=== PATIENT | male | born 1935 | race Caucasian/White ===

== ENCOUNTER → 2017-01-30 | Outpatient (CLI) | payer OTHER ==
[~2017-01-30] MED LIST: BROM0.07 OPR; PRED1SUS3 OPR
[2017-01-30 18:49] LABS: BLOOD UREA NITROGEN 24 mg/dl (7-18); BUN/CREATININE RATIO 15.7 (10-20); CALCIUM 8.7 mg/dl (8.5-10.1); CARBON DIOXIDE 29 mmol/L (21-32); CHLORIDE 109 mmol/L (98-107); GLUCOSE 92 mg/dl (70-99); POTASSIUM 4.1 mmol/L (3.5-5.1); SODIUM 142 mmol/L (136-145)
== END | disposition home or self-care (01) ==
LOC: C.LAB1850 16:22
PROVIDERS: ATTEND Family Medicine
DX: L02.529 Furuncle unspecified hand (principal); N18.3 Chronic kidney disease, stage 3 (moderate); E03.9 Hypothyroidism, unspecified

== ENCOUNTER → 2017-02-14 | Outpatient (CLI) | payer OTHER | END | disposition home or self-care (01) | LOC: C.LABSPEC 16:47 | PROVIDERS: ATTEND Nurse Practitioner Family | DX: L98.9 Disorder of the skin and subcutaneous tissue, unspecified (principal) ==

== ENCOUNTER → 2017-12-24 | Outpatient (CLI) | payer OTHER ==
[2017-12-24 12:10] LABS: BASO % 0.5 %; BASO ABS # 0.04 K/uL (0-0.2); EOS % 7.6 %; EOS ABS # 0.61 K/uL (0-0.5); HEMATOCRIT 41.7 % (42-52); HEMOGLOBIN 14.4 g/dL (14.0-18.0); IG# 0.01 K/uL (0.00-0.02); LYMPH % 28.5 %; LYMPH ABS # 2.29 K/uL (1.2-3.4); MEAN CELL VOLUME 92.9 fL (80-100); MEAN CORPUSCULAR HEMOGLOBIN 32.1 pg (25-34); MEAN CORPUSCULAR HGB CONC 34.5 g/dl (32-36); MEAN PLATELET VOLUME 10.7 fL (7.4-10.4); MONO % 9.5 %; MONO ABS # 0.76 K/uL (0.11-0.59); NEUT % 53.8 %; NEUT ABS # 4.33 K/uL (1.4-6.5); PLATELET COUNT 199 K/uL (130-400); RED CELL DISTRIBUTION WIDTH SD 47.8 fL (36.4-46.3); WHITE BLOOD COUNT 8.04 K/uL (4.8-10.8)
[2017-12-24 12:19] LABS: ALBUMIN 3.8 gm/dl (3.4-5.0); ALT/SGPT 35 U/L (12-78); BLOOD UREA NITROGEN 20 mg/dl (7-18); CALCIUM 9.1 mg/dl (8.5-10.1); CARBON DIOXIDE 30 mmol/L (21-32); CREATININE 1.47 mg/dl (0.60-1.40); GLUCOSE 110 mg/dl (70-99); SODIUM 138 mmol/L (136-145)
[2017-12-24 12:30] LABS: ALKALINE PHOSPHATASE 81 U/L (45-117); AST/SGOT 29 U/L (15-37); TOTAL PROTEIN 7.2 gm/dl (6.4-8.2)
== END | disposition home or self-care (01) ==
LOC: C.LAB1850 09:56
PROVIDERS: ATTEND Neuromusculoskeletal Medicine & OMM
DX: R63.4 Abnormal weight loss (principal)

== ENCOUNTER 2024-04-19 14:31 | Inpatient (IN) ==
--- NOTE | 2024-04-19 14:43 | ED Triage Note ---
Date of Service April 19, 2024 Provider in Triage Author: Yemi Jacobs History of Present Illness This patient was briefly evaluated while in triage. An abbreviated physical exam was performed. This patient is a 88-year-old Male who presents to the ED for evaluation of feelings like he was going to pass out. The patient reports that he was driving and felt like he was going to pass out. Patient reports that he got dizzy. The patient denied any chest pain, palpitations or shortness of breath. Symptoms developed twice within the period of 15 minutes. The patient reports his symptoms happened a few days ago as well, and has been intermittent over the last few weeks. Patient reports that it seems to happen when he is trying to stand up. In triage, the patient's lowest heart rate was 43. The patient reports that he is usually in the upper 40s and low 50s normally. The patient was sent here from his PCPs office, and did have an ECG performed today. Physical Exam CONSTITUTIONAL: Healthy and well nourished. Alert and oriented X 3. GCS 15. HEENT: No scleral icterus or conjunctival injection. RESPIRATORY: Clear to auscultation bilaterally with no wheezing, crackles, rhonchi or stridor. CARDIOVASCULAR: Bradycardic but regular rhythm with no murmurs, rubs or gallops. INTEGUMENTARY: No rash or other significant dermatologic conditions noted. HEMATOLOGIC: No ecchymosis or petechiae. PSYCHIATRIC: Positive affect. NEUROLOGIC: No focal neurologic deficits noted. Initial orders for labs and / or imaging were placed and patient was placed in the waiting area until a bed is available. Please see further documentation for the full ED course.
--- NOTE | 2024-04-19 16:07 | CT Scan Report ---
CT OF THE HEAD WITHOUT CONTRAST CLINICAL HISTORY: Near-syncope COMPARISON STUDY: Head CT April 14, 2014. CT DOSE: 625.8 mGy.cm TECHNIQUE: Helical axial images of the head were obtained without IV contrast. Automated exposure con trol was utilized for the study. A dose lowering technique was utilized adhering to the principles o f ALARA. FINDINGS: No acute intracranial hemorrhage, midline shift or mass effect is present. The ventricular system is unremarkable. The basal cisterns are patent. No extra-axial collections are present. There are no findings to suggest acute dural sinus thrombosis or acute territorial infarct. There are no ca lvarial fractures. There is minimal sinus mucosal thickening. IMPRESSION: No acute intracranial findings. ACT 112: Negative or not required by law. Electronically signed by: Jimmy Mcdaniel M.D. 04/19/2024 4:05 PM
--- NOTE | 2024-04-19 16:09 | Emergency Department Note ---
Impression & Plan Symptomatic bradycardia, Vertebral artery stenosis ED Provider Note CHIEF COMPLAINT: Dizziness HISTORY OF PRESENT ILLNESS: This 88-year-old male patient past medical history of hypothyroidism presents emergency department with near syncope x 2 today. Patient states he was in his usual state of health, [place] He began to feel woozy. He likens it to "just before you go to sleep with anesthesia." He states he slowed his vehicle down, but did not pulling unit floorhand. He did not actually lose consciousness. He did have recurrence of the episode about 15 minutes later. Patient states he has been feeling dizzy lately when he bends down low and stands up. He denies any heart palpitations or chest pain during these episodes. He denies any recent febrile illnesses. He admits to a diarrheal illness about 2 weeks ago which has since resolved. Of note, patient states he is asymptomatic at this time. REVIEW OF SYSTEMS: A review of systems was performed with positives and pertinent negatives listed in the history of present illness. 10 systems were reviewed and are otherwise negative. ALLERGIES: see below MEDICATIONS: see below PMH: see below SOCIAL HISTORY: see below DDx: Dehydration, electrolyte abnormality, sick sinus syndrome, atrial fibrillation, PE, acute coronary syndrome, among others. PHYSICAL EXAM: Vital signs reviewed. General: Well-appearing 88-year-old male, in no significant distress. HEENT: No scleral icterus, PERRLA, neck supple. moist mucous membranes. Cardiovascular: Bradycardic with occasional ectopy. No extra sounds. Pulmonary: Clear to auscultation bilaterally, normal work of breathing. Abdomen: Soft, nontender, nondistended, positive bowel sounds. Musculoskeletal: Atraumatic, no peripheral edema. Neurologic: Patient awake alert and oriented x 3, speech is clear Skin: Warm, dry, no rash EMERGENCY DEPARTMENT COURSE/MDM: this patient was evaluated and appeared to be in no significant distress. IV access was obtained and laboratory work was drawn. The patient was placed on the director of elementary education noted to be in a sinus bradycardia. Need to have frequent ectopy and at least 1 dropped QRS complex after P wave. Patient bradycardia down to 35 beats a minute on telemetry. His blood pressure has remained stable. He was hydrated with normal saline solution. Chest x-ray was performed and reveals no evidence of focal lung consolidation. CT with CT angiograms of the head and neck per radiology reveals evidence of a right intracranial vertebral artery mulitfocal stenosis. There is no evidence of significant occlusion or dissection. Given that there are no significant findings in the vasculature of the neck, I do not think this is the main contributing factor to the patient's near syncopal episodes. Laboratory work is fairly reassuring. The patient continued to have bradycardic episodes with frequent ectopy on telemetry, which I feel is likely the contributing factor to his presentation. Given the concern over his baseline bradycardia with dips into the 30s which are likely symptomatic, patient will be evaluated by the hospitalist service for admission and further management. patient and his are aware of the plan and agreed. MONITORING: An order for cardiac monitoring was placed and the patient is noted to be in a sinus bradycardia 45 beats per minute. RADIOLOGY: Chest x-ray to my interpretation reveals no evidence of focal consolidation or failure. Otherwise defer to radiology is over read. Head CT per radiology reveals no evidence of acute intracranial pathology, see final read below. CT angiogram of the head and neck per radiology IMPRESSION: 1. No large vessel occlusion. No intracranial aneurysm. 2. 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 EKG: To my interpretation reveals a sinus bradycardia at [address] segments. QTc of 406. No PVC, no PAC. DISPOSITION: Admission Past Med/Surg History Problem List (Updated 04/19/24 @ 23:24 by Maria Teresa Stanton MD) Vertebral artery stenosis (Acute) Symptomatic bradycardia (Acute) Medical History Recurrent right inguinal hernia [place] (hard of hearing) History of bradycardia per "always naturally has a very low pulse rate" Hx MRSA infection ~2008, hospitalized 7 days while [place] the [place] in [facility], leg wound>treated Hx of urinary frequency Hypothyroidism History of diverticulitis Chronic kidney disease stage 3, possibly 4 per ; f/u PCP Cervical vertebral fusion ~2006 or 2007, per "very top of neck area, also removed 8 bone fragments from his neck">ROM is limited Anemia stated "she never knew about this, doesn't think this is correct" Blood pressure elevated without history of HTN per , recently blood pressure "has been good, never medicated for this" Erectile dysfunction Personal history of pneumonia (recurrent) ~2013, thinks he only had it once, not hosp; no residual symptoms Surgical History Hx of colonoscopy Hx of oral surgery oral implants placed Hx of bilateral cataract extraction H/O: vasectomy H/O inguinal hernia repair x2, right side Family History Mother Glaucoma Denies family history of Ovarian cancer Prostate cancer Myocardial infarction Breast cancer Colorectal cancer Social History Smoking Status: Never smoker Second Hand Exposure: No; Do You Dip or Chew Tobacco: No; Hx Alcohol Use: Yes (none since at least 2019) Hx Substance Use: No Preferred Language: Urdu Communication Ability: Effective Commercial Or Institutional Cleaner Required: No Beliefs That Will Affect Care: None marital status: Current Living Situation: Spouse current occupational status: retired Feels Safe at Home: Yes Childhood Exposure to Second-Hand Smoke: No Physical Activity Frequency: Daily Assistive Devices: Glasses Allergies Allergies Allergy/AdvReac Type Severity Reaction Status Date / Time Horse/Equine Containing Allergy Intermediate FROM HORSE Verified 02/18/24 01:45 Products SERUM TETANUS pollen extracts Allergy Intermediate HAYFEVER Verified 02/18/24 01:46 SYMPTOMS tetanus toxoid, adsorbed Allergy Intermediate BURNING Verified 02/18/24 01:45 SENSATION ALL OVER BODY - "ALMOST WENT UNCONSCIOUS" Sulfa (Sulfonamide AdvReac Severe "ENDED UP Verified 02/18/24 01:45 Antibiotics) WITH HEPATITIS AFTER TAKING MED" Home Meds Home Medications Medication Instructions Recorded Confirmed diphenhydramine HCl 25 mg tablet 25 mg PO TID PRN Allergy Symptoms 01/27/24 04/19/24 levothyroxine 100 mcg capsule 100 mcg PO DAILYBB 01/27/24 04/19/24 Results & Data (ED) Vital Signs Vital Signs - 24 hr 04/19/24 14:39 04/19/24 17:40 04/19/24 17:41 Temperature 36.8 C Temperature Source Temporal Artery Scan Pulse Rate - Lying Pulse Rate - Sitting Pulse Rate - Standing Pulse Rate 45 L Pulse Rate [Apical] 43 L Pulse Rhythm Regular Respiratory Rate 20 14 Respiratory Effort / Characteristics Non-Labored Respiratory Depth Normal Normal Respiratory Pattern Regular Blood Pressure - Lying Blood Pressure - Sitting Blood Pressure- Standing Blood Pressure 187/96 H Blood Pressure [Left Arm] 188/77 H Blood Pressure Mean 126 Blood Pressure Mean [Left Arm] 114 Pulse Oximetry 96 95 96 Oxygen Delivery Method Room Air Room Air Room Air Oxygen Flow Rate 0 Sepsis Recent Fever Within 48 Hours No Sepsis New/Unexplained Change in Mental Status N/A Sepsis Action Taken by Nursing No Action Required 04/19/24 17:43 04/19/24 17:44 04/19/24 18:50 Temperature Temperature Source Pulse Rate - Lying 42 L Pulse Rate - Sitting 47 L Pulse Rate - Standing 48 L Pulse Rate 45 L 43 L Pulse Rate [Apical] Pulse Rhythm Respiratory Rate 18 Respiratory Effort / Characteristics Respiratory Depth Respiratory Pattern Blood Pressure - Lying 176/90 H Blood Pressure - Sitting 160/80 H Blood Pressure- Standing 164/78 H Blood Pressure Blood Pressure [Left Arm] Blood Pressure Mean Blood Pressure Mean [Left Arm] Pulse Oximetry 98 Oxygen Delivery Method Room Air Oxygen Flow Rate 0 Sepsis Recent Fever Within 48 Hours Sepsis New/Unexplained Change in Mental Status Sepsis Action Taken by Nursing 04/19/24 18:57 Temperature Temperature Source Pulse Rate - Lying Pulse Rate - Sitting Pulse Rate - Standing Pulse Rate Pulse Rate [Apical] 57 L Pulse Rhythm Respiratory Rate 18 Respiratory Effort / Characteristics Non-Labored Respiratory Depth Normal Respiratory Pattern Regular Blood Pressure - Lying Blood Pressure - Sitting Blood Pressure- Standing Blood Pressure Blood Pressure [Left Arm] 179/75 H Blood Pressure Mean Blood Pressure Mean [Left Arm] 109 Pulse Oximetry 98 Oxygen Delivery Method Room Air Oxygen Flow Rate Sepsis Recent Fever Within 48 Hours Sepsis New/Unexplained Change in Mental Status Sepsis Action Taken by Longterm Medications Current Medication List: was personally reviewed by me Laboratory Data Attestation: I reviewed the patient's lab results. 04/19/24 15:58 04/19/24 17:03 Lab Results 04/19/24 04/19/24 04/19/24 Range/Units 15:58 17:03 17:29 WBC 7.51 (4.8-10.8) K/ul RBC 4.69 L (4.70-6.10) M/uL Hgb 14.0 (14.0-18.0) g/dl Hct 41.5 L (42.0-52.0) % MCV 88.5 (80.0-100.0) fL MCH 29.9 (25.0-34.0) pg MCHC 33.7 (32.0-36.0) g/dL RDW Std Deviation 42.5 (36.4-46.3) fL RDW Coeff of Sadia 13.1 (11.5-14.5) % Plt Count 154 (130-400) K/uL MPV 11.5 (9.4-12.4) fL Immature Gran % (Auto) 0.1 % Neut % (Auto) 56.0 % Lymph % (Auto) 28.2 % Hinds % (Auto) 11.3 % Eos % (Auto) 3.9 % Baso % (Auto) 0.5 % Neut # (Auto) 4.20 (1.40-6.50) K/uL Lymph # (Auto) 2.12 (1.20-3.40) K/uL Hinds # (Auto) 0.85 H (0.11-0.59) K/uL Eos # (Auto) 0.29 (0.00-0.50) K/uL Baso # (Auto) 0.04 (0.00-0.20) K/uL Immature Gran # (Auto) 0.01 (0.01-0.20) K/uL PT Cancelled 11.0 INR Cancelled 1.0 APTT Cancelled 29 PTT Ratio Cancelled 1.1 Sodium Cancelled 138 Potassium Cancelled 4.3 Chloride Cancelled 107 Carbon Dioxide Cancelled 27 Anion Gap Cancelled 4 BUN Cancelled 22 Creatinine Cancelled 1.43 H Est Cr Clr Drug Dosing Cancelled 30.7 Est GFR ( Amer) Cancelled 50.7 Est GFR (Non-Af Amer) Cancelled 43.7 BUN/Creatinine Ratio Cancelled 15.4 Glucose Cancelled 89 Calcium Cancelled 9.0 Magnesium Cancelled 2.1 Total Bilirubin Cancelled 0.7 AST Cancelled 22 ALT Cancelled 16 Alkaline Phosphatase Cancelled 50 Troponin I High Sens Cancelled 8.6 Total Protein Cancelled 7.0 Albumin Cancelled 4.1 Globulin Cancelled 2.9 Albumin/Globulin Ratio Cancelled 1.4 TSH Cancelled 3.191 Urine Color Urine Appearance (Clear) Urine pH (4.5-7.5) Ur Specific Mcwilliams (1.000-1.030) Urine Protein (Negative) Urine Glucose (UA) (Negative) Urine Ketones (Negative) Urine Blood (Negative) Urine Nitrite (Negative) Urine Bilirubin (Negative) Urine Urobilinogen (Negative) Ur Leukocyte Esterase (Negative) Lyme Disease Screen Cancelled 04/19/24 04/19/24 Range/Units 18:14 19:08 WBC (4.8-10.8) K/ul RBC (4.70-6.10) M/uL Hgb (14.0-18.0) g/dl Hct (42.0-52.0) % MCV (80.0-100.0) fL MCH (25.0-34.0) pg MCHC (32.0-36.0) g/dL RDW Std Deviation (36.4-46.3) fL RDW Coeff of Sadia (11.5-14.5) % Plt Count (130-400) K/uL MPV (9.4-12.4) fL Immature Gran % (Auto) % Neut % (Auto) % Lymph % (Auto) % Hinds % (Auto) % Eos % (Auto) % Baso % (Auto) % Neut # (Auto) (1.40-6.50) K/uL Lymph # (Auto) (1.20-3.40) K/uL Hinds # (Auto) (0.11-0.59) K/uL Eos # (Auto) (0.00-0.50) K/uL Baso # (Auto) (0.00-0.20) K/uL Immature Gran # (Auto) (0.01-0.20) K/uL PT INR APTT PTT Ratio Sodium Potassium Chloride Carbon Dioxide Anion Gap BUN Creatinine Est Cr Clr Drug Dosing Est GFR ( Amer) Est GFR (Non-Af Amer) BUN/Creatinine Ratio Glucose Calcium Magnesium Total Bilirubin AST ALT Alkaline Phosphatase Troponin I High Sens Total Protein Albumin Globulin Albumin/Globulin Ratio TSH Urine Color Yellow Urine Appearance Clear (Clear) Urine pH 6.5 (4.5-7.5) Ur Specific Mcwilliams 1.014 (1.000-1.030) Urine Protein Negative (Negative) Urine Glucose (UA) Negative (Negative) Urine Ketones Negative (Negative) Urine Blood Negative (Negative) Urine Nitrite Negative (Negative) Urine Bilirubin Negative (Negative) Urine Urobilinogen Negative (Negative) Ur Leukocyte Esterase Negative (Negative) Lyme Disease Screen Negative Administered Medications Discontinued Medications Sodium Chloride (Nss) 500 mls @ 999 mls/hr IV .Q31M ONE Stop: 04/19/24 17:06 Last Infusion: 04/19/24 18:16 Dose: Infused Documented By: Admin: 04/19/24 17:37 Dose: 999 mls/hr Documented By: MOE Sodium Chloride (Nss) 1,000 mls @ 125 mls/hr IV .Q8H JENNIFER Stop: 05/19/24 16:44 Last Admin: 04/19/24 18:57 Dose: 125 mls/hr Documented By: MOE Ioversol (Optiray 320 125ml) 119 ml IV ONCE ONE Stop: 04/19/24 18:29 Last Admin: 04/19/24 18:28 Dose: 119 ml Documented By: PLAugusto Imaging Data Radiologist's Impression: Chest X-Ray 04/19/24 14:44 XR chest 1V not portable CLINICAL HISTORY: Near-syncope COMPARISON STUDY: Chest radiograph February 18, 2024. FINDINGS: Lung volumes are normal. Lungs are clear. There is no pneumothorax or pleural effusion. Cardiac size is normal. Mediastinal contours are normal. There is no evidence for pulmonary edema. Postoperative findings within the cervical spine are incidentally noted. IMPRESSION: No acute cardiopulmonary findings. ACT 112: Negative or not required by law. Electronically signed by: Jimmy Mcdaniel M.D. 04/19/2024 4:[address] 04/19/24 14:44 CT OF THE HEAD WITHOUT CONTRAST CLINICAL HISTORY: Near-syncope COMPARISON STUDY: Head CT April 14, 2014. CT DOSE: 625.8 mGy.cm TECHNIQUE: Helical axial images of the head were obtained without IV contrast. Automated exposure control was utilized for the study. A dose lowering technique was utilized adhering to the principles of ALARA. FINDINGS: No acute intracranial hemorrhage, midline shift or mass effect is present. The ventricular system is unremarkable. The basal cisterns are patent. No extra-axial collections are present. There are no findings to suggest acute dural sinus thrombosis or acute territorial infarct. There are no calvarial fractures. There is minimal sinus mucosal thickening. IMPRESSION: No acute intracranial findings. ACT 112: Negative or not required by law. Electronically signed by: Jimmy Mcdaniel M.D. 04/19/2024 4:05 PM Head CTA 04/19/24 16:33 CTA ANGIOGRAPHY OF THE HEAD CLINICAL HISTORY: dizzy near syncope while driving COMPARISON STUDY: Head CT performed earlier today. TECHNIQUE: Helical axial images of the head were obtained following uneventful intravenous administration of 119 cc of Optiray. Sagittal and coronal reconstructions were viewed as well as maximal intensity projections on an independent 3-D workstation. Automated exposure control was utilized for the study. A dose lowering technique was utilized adhering to the principles of ALARA. FINDINGS: No acute intracranial hemorrhage, midline shift or mass effect is present. Ventricular system is unremarkable. Basal cisterns are patent. There are no extra axial collections. The bilateral M1, M2, A1 and A2 segments are patent. There is mild plaque within the cavernous carotids without stenosis. There is no intracranial aneurysm. No large vessel occlusion is noted. The left vertebral artery is dominant and patent. There are severe multifocal stenoses within the intracranial portion of the right vertebral artery. IMPRESSION: 1. No large vessel occlusion. No intracranial aneurysm. 2. 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 ACT 112: Negative or not required by law. Electronically signed by: Jimmy Mcdaniel M.D. 04/19/2024 6:52 PM Neck CTA 04/19/24 16:33 CT ANGIOGRAPHY OF THE NECK WITH CONTRAST CLINICAL HISTORY: dizzy near syncope while driving COMPARISON STUDY: No previous studies for comparison. Technique: CT angiography of the carotid and vertebral arteries was obtained using Optiray and 3D reconstruction on an independent workstation. NASCET criteria was utilized. Automated exposure control was utilized for the study. A dose lowering technique was utilized adhering to the principles of ALARA. CT DOSE: 569.12 mGy.cm Findings: No cervical spine fractures are present. There is no cervical lymphadenopathy. There are postoperative findings consistent with C5-C6 anterior discectomy and fusion. The bilateral common carotid and cervical internal carotid arteries are patent. There is mild plaque within the proximal bilateral internal carotid arteries without stenosis. There is no aneurysm within the neck. The left vertebral artery is dominant and patent. Severe multifocal stenoses within the right vertebral artery noted, including severe stenosis at the vessel origin. In addition, there is severe stenosis of the intracranial portion of the right vertebral artery. IMPRESSION: 1. Severe multifocal stenoses within the right vertebral artery, as described above. Patent, dominant left vertebral artery. 2. No stenoses within the bilateral common carotid or cervical internal carotid arteries. ACT 112: Negative or not required by law. Electronically signed by: Jimmy Mcdaniel M.D. 04/19/2024 6:45 PM Discharge Plan Visit Data Chief Complaint: Dizziness Stated Complaint: REF BY DOC, DIZZINESS, LIGHTHEADED ED Provider: Maria Teresa Stanton Discharge Problem: Symptomatic bradycardia, Vertebral artery stenosis Discharge Instructions Interventions: ED Discharge Assessment Last Done: 04/19/24 21:26 Discharge Problem: Vertebral artery stenosis Qualifiers: Laterality: right Qualified Code(s): I65.01 - Occlusion and stenosis of right vertebral artery
[2024-04-19 16:14] LABS: Basophils # (auto) 0.04 K/uL (0.00-0.20); Basophils % (auto) 0.5 %; Eosinophils # (auto) 0.29 K/uL (0.00-0.50); Eosinophils % (auto) 3.9 %; Hematocrit (blood only) 41.5 % (42.0-52.0); Immature Granulocytes # (auto) 0.01 K/uL (0.01-0.20); Immature Granulocytes % (auto) 0.1 %; Lymphocytes # (auto) 2.12 K/uL (1.20-3.40); Lymphocytes % (auto) 28.2 %; Mean Corpuscular Hemoglobin 29.9 pg (25.0-34.0); Mean Corpuscular Hgb Conc 33.7 g/dL (32.0-36.0); Mean Corpuscular Volume 88.5 fL (80.0-100.0); Mean Platelet Volume 11.5 fL (9.4-12.4); Monocytes # (auto) 0.85 K/uL (0.11-0.59); Monocytes % (auto) 11.3 %; Platelet Count 154 K/uL (130-400); RDW Coefficient of Variation 13.1 % (11.5-14.5); RDW Standard Deviation 42.5 fL (36.4-46.3); Red Blood Count 4.69 M/uL (4.70-6.10); White Blood Count 7.51 K/ul (4.8-10.8)
--- NOTE | 2024-04-19 16:26 | XRay Report ---
XR chest 1V not portable CLINICAL HISTORY: Near-syncope COMPARISON STUDY: Chest radiograph February 18, 2024. FINDINGS: Lung volumes are normal. Lungs are clear. There is no pneumothorax or pleural effusion. Car diac size is normal. Mediastinal contours are normal. There is no evidence for pulmonary edema. Posto perative findings within the cervical spine are incidentally noted. IMPRESSION: No acute cardiopulmonary findings. ACT 112: Negative or not required by law. Electronically signed by: Jimmy Mcdaniel M.D. 04/19/2024 4:24 PM
--- NOTE | 2024-04-19 16:51 | Electrocardiogram Report ---
Test Reason : Blood Pressure : */* mmHG Vent. Rate : 46 BPM Atrial Rate : 46 BPM P-R Int : 202 ms QRS Dur : 70 ms QT Int : 464 ms P-R-T Axes : 49 34 15 degrees QTcB Int : 406 ms Sinus bradycardia Abnormal ECG When compared with ECG of 16-Feb-2024 07:45, Premature ventricular complexes are no longer Present Confirmed by Papito Geiger ([id number]) on 04/19/2024 4:51:02 PM Referred By: Confirmed By: Papito Geiger
[2024-04-19] MEDS: SODIUM CHLORIDE 0.9% 500 ML IV ONE (17:37)
[2024-04-19 17:58] LABS: Potassium 4.3 mmol/L (3.5-5.1)
[2024-04-19 17:59] LABS: Albumin Globulin Ratio 1.4 (0.9-2); Albumin Level 4.1 gm/dl (3.4-5.0); BUN Creatinine Ratio 15.4 (10-20); Bilirubin,Total 0.7 mg/dl (0.2-1.0); Creatinine Clr Calc Pharmacy 30.7 ml/min; Est GFR (African American) 50.7 ml/min; Est GFR (Non-African American) 43.7 ml/min; Globulin 2.9 gm/dl (2.5-4.0); Magnesium 2.1 mg/dl (1.7-2.4); Thyroid Stimulating Hormone 3.191 uIu/ml (0.300-4.500); Troponin I High Sensitivity 8.6 pg/ml (0-20)
[2024-04-19] MEDS: OPTIRAY 320 125ml IV ONE (18:28)
[2024-04-19 18:42] LABS: Appearance Urine Clear (Clear); Bilirubin Urine Negative (Negative); Blood Urine Negative (Negative); Color Urine Yellow; Glucose Urine UA Negative (Negative); Ketones Urine Negative (Negative); Leukocyte Esterase Urine Negative (Negative); Nitrite Urine Negative (Negative); Protein Urine Negative (Negative); Specific Gravity Urine 1.014 (1.000-1.030); Urobilinogen Urine Negative (Negative); pH Urine 6.5 (4.5-7.5)
--- NOTE | 2024-04-19 18:47 | CT Scan Report ---
CT ANGIOGRAPHY OF THE NECK WITH CONTRAST CLINICAL HISTORY: dizzy near syncope while driving COMPARISON STUDY: No previous studies for comparison. Technique: CT angiography of the carotid and vertebral arteries was obtained using Optiray and 3D rec onstruction on an independent workstation. NASCET criteria was utilized. Automated exposure control was utilized for the study. A dose lowering technique was utilized adhering to the principles of ALA RA. CT DOSE: 569.12 mGy.cm Findings: No cervical spine fractures are present. There is no cervical lymphadenopathy. There are po stoperative findings consistent with C5-C6 anterior discectomy and fusion. The bilateral common carot id and cervical internal carotid arteries are patent. There is mild plaque within the proximal bilate ral internal carotid arteries without stenosis. There is no aneurysm within the neck. The left verteb ral artery is dominant and patent. Severe multifocal stenoses within the right vertebral artery noted , including severe stenosis at the vessel origin. In addition, there is severe stenosis of the intrac ranial portion of the right vertebral artery. IMPRESSION: 1. Severe multifocal stenoses within the right vertebral artery, as described above. Patent, dominant left vertebral artery. 2. No stenoses within the bilateral common carotid or cervical internal carotid arteries. ACT 112: Negative or not required by law. Electronically signed by: Jimmy Mcdaniel M.D. 04/19/2024 6:45 PM
[2024-04-19 18:48] LABS: Partial Thromboplastin Ratio 1.1; Partial Thromboplastin Time 29 Seconds (21-31)
--- NOTE | 2024-04-19 18:54 | CT Scan Report ---
CTA ANGIOGRAPHY OF THE HEAD CLINICAL HISTORY: dizzy near syncope while driving COMPARISON STUDY: Head CT performed earlier today. TECHNIQUE: Helical axial images of the head were obtained following uneventful intravenous administr ation of 119 cc of Optiray. Sagittal and coronal reconstructions were viewed as well as maximal inten sity projections on an independent 3-D workstation. Automated exposure control was utilized for the study. A dose lowering technique was utilized adhering to the principles of ALARA. FINDINGS: No acute intracranial hemorrhage, midline shift or mass effect is present. Ventricular syst em is unremarkable. Basal cisterns are patent. There are no extra axial collections. The bilateral M1 , M2, A1 and A2 segments are patent. There is mild plaque within the cavernous carotids without steno sis. There is no intracranial aneurysm. No large vessel occlusion is noted. The left vertebral artery is dominant and patent. There are severe multifocal stenoses within the intracranial portion of the right vertebral artery. IMPRESSION: 1. No large vessel occlusion. No intracranial aneurysm. 2. 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 ACT 112: Negative or not required by law. Electronically signed by: Jimmy Mcdaniel M.D. 04/19/2024 6:52 PM
[2024-04-19] MEDS: SODIUM CHLORIDE 0.9% 1,000 ML IV SCH (18:57)
--- NOTE | 2024-04-19 21:31 | History & Physical Report ---
Date of Service April 19, 2024 Assessment & Plan (1) Symptomatic bradycardia: Plan: Admit to telemetry Patient presenting for evaluation of near syncope episodes x 2 In the ED, EKG shows sinus bradycardia with rate of 46. Telemetry review shows episodes of bradycardia into the low 30s. Patient asymptomatic with these episodes. Per chart review, patient's heart rate typically runs 45-55. Continue to monitor on telemetry for further bradycardic arrhythmias Pacer pads at bedside NPO after midnight for possible pacemaker Echocardiogram Cardiology consult (2) Vertebral artery stenosis: Plan: CTA shows Severe multifocal stenoses within the right vertebral artery Discussed with [facility] neurology Dr. Jamal Powell who does not feel this is the cause of patient's near syncope, rather likely bradycardia is the culprit. No intervention recommended given unilateral stenosis Recommends ASA and statin (3) Hypothyroidism: Plan: TSH 3.191 DVT PROPHYLAXIS SCDs for now Patient seen in collaboration with Dr. Oneill. I spent a total of 75 minutes coordinating, documenting, and providing care for this patient excluding time spent in the performance of separately billed services. This included personally reviewing all current laboratories and imaging studies, medication reconciliation, outpatient chart review, and discussion with specialists. History of Present Illness Chief Complaint: Lightheadedness Primary Care Provider: Sweta Waters DO 88-year-old male with PMH hypothyroidism, GERD, CKD stage III, history of cervical spinal fusion, and other problems listed below who presents to the ED for evaluation of a lightheadedness. History is obtained from the patient and review of outpatient PCP records. Patient states that he was driving his car today down the highway when he started to feel lightheaded as though he was going to pass out. Patient states symptoms resolved and he started to feel improved and continued on his way. About 15 minutes later, he started to feel lightheaded again. He states that he started to drive on the berm of the road. He did eventually come to a stop however decided to start driving again. Patient did make it safely to his son's home. He states that he did not have any further episodes of lightheadedness however did not feel himself and felt "foggy". patient was evaluated at his PCPs office and was found to be bradycardic and referred to the ED for further evaluation. Patient states that he would have episodes of lightheadedness in the past however notices an increased frequency over the past 2 weeks. Notes that they are typically followed by standing. Patient states that he is very active and spends a lot of time outside in his garden. States that he was treated for Lyme disease in December. Patient denies chest pain and palpitations. No other recent illnesses, fevers, chills. He denies abdominal pain, nausea, vomiting, diarrhea. No urinary symptoms. In the ED, EKG shows sinus bradycardia with rate of 46. Telemetry review shows the patient had episodes of bradycardia in the low 30s. He seems to have not been symptomatic with these episodes. Head CT was unremarkable for acute findings. Head and neck CTA shows Severe multifocal stenoses within the right vertebral artery. Allergies Allergy/AdvReac Type Severity Reaction Status Date / Time Horse/Equine Containing Allergy Intermediate FROM HORSE Verified 02/18/24 01:45 Products SERUM TETANUS pollen extracts Allergy Intermediate HAYFEVER Verified 02/18/24 01:46 SYMPTOMS tetanus toxoid, adsorbed Allergy Intermediate BURNING Verified 02/18/24 01:45 SENSATION ALL OVER BODY - "ALMOST WENT UNCONSCIOUS" Sulfa (Sulfonamide AdvReac Severe "ENDED UP Verified 02/18/24 01:45 Antibiotics) WITH HEPATITIS AFTER TAKING MED" Home Medications Medication Instructions Recorded Confirmed Type diphenhydramine HCl 25 mg tablet 25 mg PO TID PRN Allergy Symptoms 01/27/24 04/19/24 History levothyroxine 100 mcg capsule 100 mcg PO DAILYBB 01/27/24 04/19/24 History Past Med/Surg History Problem List (Updated 04/19/24 @ 23:24 by Maria Teresa Stanton MD) Vertebral artery stenosis (Acute) Symptomatic bradycardia (Acute) Medical History Recurrent right inguinal hernia [place] (hard of hearing) History of bradycardia per "always naturally has a very low pulse rate" Hx MRSA infection ~2008, hospitalized 7 [place] in [facility], leg wound>treated Hx of urinary frequency Hypothyroidism History of diverticulitis Chronic kidney disease stage 3, possibly 4 per ; f/u PCP Cervical vertebral fusion ~2006 or 2007, per "very top of neck area, also removed 8 bone fragments from his neck">ROM is limited Anemia stated "she never knew about this, doesn't think this is correct" Blood pressure elevated without history of HTN per , recently blood pressure "has been good, never medicated for this" Erectile dysfunction Personal history of pneumonia (recurrent) ~2013, thinks he only had it once, not hosp; no residual symptoms Surgical History Hx of colonoscopy Hx of oral surgery oral implants placed Hx of bilateral cataract extraction H/O: vasectomy H/O inguinal hernia repair x2, right side Family History Mother Glaucoma Denies family history of Ovarian cancer Prostate cancer Myocardial infarction Breast cancer Colorectal cancer Social History Smoking Status: Never smoker Second Hand Exposure: No; Do You Dip or Chew Tobacco: No; Hx Alcohol Use: No Hx Substance Use: No Preferred Language: Yi Communication Ability: Effective [facility] Director Required: No Beliefs That Will Affect Care: None marital status: Current Living Situation: Family Current Living Situation Comment: with and daughter current occupational status: retired Feels Safe at Home: Yes Safety Concerns: Feels Safe At This Time Childhood Exposure to Second-Hand Smoke: No Physical Activity Frequency: Daily Assistive Devices: None Review of Systems Review of Systems: ROS per HPI, all other systems reviewed and negative Physical Exam Constitutional: WD/WN, vitals as above no acute distress Eyes: PERRL, conjunctivae normal, anicteric sclerae ENMT: external ear and nose normal, oropharynx normal Respiratory: normal respiratory effort, lungs clear to auscultation Cardiovascular: Rate/Rhythm: regular rhythm and + bradycardic Vessels: normal peripheral pulses Extremities: no edema Gastrointestinal (Abdomen): normal bowel sounds, soft, nontender, no hepatosplenomegaly Musculoskeletal: no cyanosis or clubbing, extremities motor strength 5/5 Skin: no rashes, warm and dry Neurologic: PERRL, EOMI, accommodation nl, no face palsy, no dysarthria Psychiatric: A+Ox3, euthymic affect Results & Data Results & Data Vital Signs (Past 12 Hours) Vital Signs Temp Pulse Pulse Resp BP BP Pulse Ox 04/19/24 20:04 47 L 21 186/85 H 99 04/19/24 18:57 57 L 18 179/75 H 98 04/19/24 18:50 43 L 18 98 04/19/24 17:44 45 L 04/19/24 17:41 96 04/19/24 17:40 43 L 14 188/77 H 95 04/19/24 14:39 36.8 C 45 L 20 187/96 H 96 O2 Del Method O2 Flow Rate 04/19/24 20:04 Room Air 04/19/24 18:57 Room Air 04/19/24 18:50 Room Air 0 04/19/24 17:44 04/19/24 17:41 Room Air 0 04/19/24 17:40 Room Air 04/19/24 14:39 Room Air Laboratory Results Short CBC 04/19/24 Range/Units 15:58 WBC 7.51 (4.8-10.8) K/ul Hgb 14.0 (14.0-18.0) g/dl Hct 41.5 L (42.0-52.0) % Plt Count 154 (130-400) K/uL BMP 04/19/24 04/19/24 15:58 17:03 Sodium Cancelled 138 Potassium Cancelled 4.3 Chloride Cancelled 107 Carbon Dioxide Cancelled 27 BUN Cancelled 22 Creatinine Cancelled 1.43 H Glucose Cancelled 89 Calcium Cancelled 9.0 Liver Function 04/19/24 04/19/24 Range/Units 15:58 17:03 Total Bilirubin Cancelled 0.7 AST Cancelled 22 ALT Cancelled 16 Alkaline Phosphatase Cancelled 50 Albumin Cancelled 4.1 Urine 04/19/24 Range/Units 18:14 Urine Color Yellow Urine Appearance Clear (Clear) Urine pH 6.5 (4.5-7.5) Ur Specific [place] 1.014 (1.000-1.030) Urine Protein Negative (Negative) Urine Glucose (UA) Negative (Negative) Diagnostic Findings Chest X-Ray 04/19/24 14:44 XR chest 1V not portable CLINICAL HISTORY: Near-syncope COMPARISON STUDY: Chest radiograph February 18, 2024. FINDINGS: Lung volumes are normal. Lungs are clear. There is no pneumothorax or pleural effusion. Cardiac size is normal. Mediastinal contours are normal. There is no evidence for pulmonary edema. Postoperative findings within the cervical spine are incidentally noted. IMPRESSION: No acute cardiopulmonary findings. ACT 112: Negative or not required by law. Electronically signed by: Jimmy Mcdaniel M.D. 04/19/2024 4:[address] 04/19/24 14:44 CT OF THE HEAD WITHOUT CONTRAST CLINICAL HISTORY: Near-syncope COMPARISON STUDY: Head CT April 14, 2014. CT DOSE: 625.8 mGy.cm TECHNIQUE: Helical axial images of the head were obtained without IV contrast. Automated exposure control was utilized for the study. A dose lowering technique was utilized adhering to the principles of ALARA. FINDINGS: No acute intracranial hemorrhage, midline shift or mass effect is present. The ventricular system is unremarkable. The basal cisterns are patent. No extra-axial collections are present. There are no findings to suggest acute dural sinus thrombosis or acute territorial infarct. There are no calvarial fractures. There is minimal sinus mucosal thickening. IMPRESSION: No acute intracranial findings. ACT 112: Negative or not required by law. Electronically signed by: Jimmy Mcdaniel M.D. 04/19/2024 4:05 PM Head CTA 04/19/24 16:33 CTA ANGIOGRAPHY OF THE HEAD CLINICAL HISTORY: dizzy near syncope while driving COMPARISON STUDY: Head CT performed earlier today. TECHNIQUE: Helical axial images of the head were obtained following uneventful intravenous administration of 119 cc of Optiray. Sagittal and coronal reconstructions were viewed as well as maximal intensity projections on an independent 3-D workstation. Automated exposure control was utilized for the st udy. A dose lowering technique was utilized adhering to the principles of ALARA. FINDINGS: No acute intracranial hemorrhage, midline shift or mass effect is present. Ventricular system is unremarkable. Basal cisterns are patent. There are no extra axial collections. The bilateral M1, M2, A1 and A2 segments are patent. There is mild plaque within the cavernous carotids without stenosis. There is no intracranial aneurysm. No large vessel occlusion is noted. The left vertebral artery is dominant and patent. There are severe multifocal stenoses within the intracranial portion of the right vertebral artery. IMPRESSION: 1. No large vessel occlusion. No intracranial aneurysm. 2. 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 ACT 112: Negative or not required by law. Electronically signed by: Jimmy Mcdaniel M.D. 04/19/2024 6:52 PM Neck CTA 04/19/24 16:33 CT ANGIOGRAPHY OF THE NECK WITH CONTRAST CLINICAL HISTORY: dizzy near syncope while driving COMPARISON STUDY: No previous studies for comparison. Technique: CT angiography of the carotid and vertebral arteries was obtained using Optiray and 3D reconstruction on an independent workstation. NASCET criteria was utilized. Automated exposure control was utilized for the study. A dose lowering technique was utilized adhering to the principles of ALARA. CT DOSE: 569.12 mGy.cm Findings: No cervical spine fractures are present. There is no cervical lymphadenopathy. There are postoperative findings consistent with C5-C6 anterior discectomy and fusion. The bilateral common carotid and cervical internal carotid arteries are patent. There is mild plaque within the proximal bilateral internal carotid arteries without stenosis. There is no aneurysm within the neck. The left vertebral artery is dominant and patent. Severe multifocal stenoses within the right vertebral artery noted, including severe stenosis at the vessel origin. In addition, there is severe stenosis of the intracranial portion of the right vertebral artery. IMPRESSION: 1. Severe multifocal stenoses within the right vertebral artery, as described above. Patent, dominant left vertebral artery. 2. No stenoses within the bilateral common carotid or cervical internal carotid arteries. ACT 112: Negative or not required by law. Electronically signed by: Jimmy Mcdaniel M.D. 04/19/2024 6:45 PM Code Status & VTE Plan VTE Prophylaxis Plan VTE Prophylaxis will be ordered: Yes Supervising Physician Co-Signing Physician Notes Agree with above note. 88M with hx of hypothyroidism, gerd, ckd stge 3 presents with near syncope episodes.Patient says he was driving from [facility] to his sons house to return his sons car. His was following him in another car. [place] [address] [place] suddenly felt foggy , felt like passing out. He slowed down the car and his symptoms resolved so he continued to drive. After some time it happened again and took the next exit and stopped the car but symptoms resolved and he felt better enough to drive the car again and reached his son's house safely. When he went to PCPs office where they checked his vitals and his heart rate was found to be low and was advised to come to the ER. Patient states in the ER monitor he is noticing sometimes heart rate dropping into low 30s. Currently denies any headache or dizziness. No blurred visions. Somewhat hard of hearing. No runny nose or sore throat. No cough. No fevers. Denies any chest pain or shortness of breath. No nausea or abdominal pain. Patient is very active. He takes care of his property per patient ExaM GENERAL: No acute distress. HEAD: No signs of head trauma EYES PERRLA THROAT: Oropharynx is normal. NECK: supple no JVD. CHEST: Clear breath sounds bilaterally. No wheezes, rales, or rhonchi. CARDIAC: Regular rate and rhythm. S1 and S2, without murmurs, gallops, VASCULAR: No Edema. ABDOMEN: Normal and soft with no tenderness, no distension. GASTROINTESTINAL: Bowel sounds normal. NEUROLOGICAL: Alert and oriented . No strength deficits. Speech normal. Follows commands appropriately. Labs And imaging studies reviewed a/p Symptomatic bradycardia Close monitoring telemetry Lyme screen negative Will follow echo Cardiac consult in a.m. for further recommendations Hypothyroidism On Synthroid TSH is okay CKD stage III Presented with creatinine 1.4 Which seems to be around baseline Will follow-up labs Vertebral artery stenosis CTA shows severe multifocal stenosis of the right vertebral artery. Was discussed with the nursing and neurology no intervention recommended as mentioned above and recommends aspirin and statin Follow lipid profile DVT prophylaxis SCDs for now Disposition Telemetry
--- OUTSIDE RECORDS SUMMARY | 2024-04-19 23:31 | External Medical Summary | Summary of Care ---
Author Name Unknown Organization [facility] Address [address] [place] [address] Phone [phone] Care Team Providers Care Energy Project Engineer Name Role Phone Sweta Carlos DO Primary Care Provider Reason for Visit * Reason Onset Date Comments Medication Refill 03/24/2024 Encounter Details Date Type Department Care Team (Late st Contact Info) Description 03/24/2024 Refill Family Practice [address] [place] [phone] Sweta Carlos DO [address], [place] [id number] Allergies Active Allergy Reactions Criticality Noted Date Comments Pollen 01/08/2024 Sulfa Antibiotics 07/31/1998 hepatitis Tetanus-Diphtheria Toxoids Td 02/23/2020 Lightheaded. When was 19. Near syncope. Has done fine with newer tdap. documented as of this encounter (statuses as of 03/24/2024) Medications Medication Sig Dispensed Refills Start Date End Date Status diphenhydrAMINE HCl 25 MG Oral Capsule Take 1 Capsule by mouth every 6 hours as needed for Other (hay fever). Active Amoxicillin 500 MG Oral Capsule (Amoxil) 01/21/2023 Active Chlorhexidine Gluconate 0.12 % Mouth/Throat Solution (Periogard) 01/21/2023 Active Levothyroxine Sodium 100 MCG Oral Tablet (Levoxyl) Take 1 Tablet by mouth in the morning. (at least 30 min prior to breakfast or other meds). 90 Tablet 03/24/2024 Active Levothyroxine Sodium 100 MCG Oral Tablet (Levoxyl) Take 1 Tablet by mouth in the morning. (at least 30 min prior to breakfast or other meds). 90 Tablet 01/12/2024 03/24/2024 Discontinued (Refill) documented as of this encounter (statuses as of 03/24/2024) Active Problems Problem Noted Date Diagnosed Date Gastroesophageal reflux disease without esophagi tis 08/18/2023 Witnessed episode of apnea 02/27/2022 Chronic kidney disease, stage 3b 01/23/2021 Overview: Per CKD protocol Hypothyroidism, unspecified 04/27/2020 Well adult exam 02/23/2020 Overview: -Dee. Sister in law was Cathy Wiggins. Former PCP Dr Gallegos [facility] S/P cervical spinal fusion documented as of this encounter (statuses as of 03/24/2024) Resolved Problems Problem Noted Date Diagnosed Date Resolved Date Kidney disease, chronic, sta ge III (GFR 30-59 ml/min) 02/25/2020 01/25/2021 Overview: Per CKD protocol documented as of this encounter (statuses as of 03/24/2024) Immunizations Name Administration Dates Next Due COVID-19 mRNA, LNP-s, No Pre serve, 2-Dose Series ([employer] [place]) 06/12/2021,11/28/2020,11/07/2020 COVID-19, LNP-s, No Preserve , Wale-sucrose, Ages 12+ (Pfizer) 01/17/2022 COVID-19, MRNA-LNP, 23-24, P F, 30 MCG/0.3 mL, 12 YRS AND ABOVE, IM ([facility]) 01/09/2024,06/30/2023 Covid-19, Mrna, Lnp-s, Pf, B ivalent, 30 Mcg, IM, 12 yrs and above (Pfizer) 01/22/2023,05/27/2022 Pneumococcal Conjugate Vacc, 13 Valent (Prevnar) 05/17/2020 Pneumococcal Polysaccharide PPV23 (Pneumovax) 06/28/2021 Seasonal Influenza, Quadriva lent Hd (Fluzone Hd) 06/04/2023,05/21/2022,05/28/2021 Seasonal Influenza, Quadriva lent Hd, 65+ Yrs 05/17/2020 Seasonal Influenza, Trivalen t, High Dose, No Preserve, IM 05/17/2020,06/18/2019 TDAP (age 10 and older)(Boostrix) 03/08/2021 Varicella Zoster Vaccine (Adult) 03/08/2010 documented as of this encounter Social History Tobacco Use Types Packs/Day Years Used Date Smoking Tobacco: Never Passive Smoke Exposure: Past Smokeless Tobacco: Never Alcohol Use Standard Drinks/Week Comments No 0 (1 standard drink = 0.6 oz pur e alcohol) PHQ-2 Answer Date Recorded PHQ Adult Total Score 0 08/18/2023 Hunger Vital Sign Answer Date Recorded Within the past 12 months, y ou worried that your food would run out before you got the money to buy more. Never true 08/18/20 23 Within the past 12 months, t he food you bought just didn't last and you didn't have money to get more. Never true 08/18/2023 Sex and Gender Information Value Date Recorded Sex Assigned at Male 06/28/2022 11:13 AM EDT Gender Identity Male 06/28/2022 11:13 AM EDT Sexual Orientation Straight 06/28/2022 11 :13 AM EDT Job Start Date Occupation Industry Not on file Not on file Not on file documented as of this encounter Miscellaneous Notes * Telephone Encounter - Sweta Carlos DO - 03/24/2024 3:32 PM EDTSigned Prescriptions: Disp Refills Levothyroxine Sodium 100 MCG Oral Tablet (*90 Tab*0 Sig: Take 1 Tablet by mouth in the morning. (at least 30 min prior to breakfast or other meds). Authorizing Provider: SWETA CARLOS * Telephone Encounter - Leona Machuca LPN - 03/24/2024 2:39 PM EDTPending Prescriptions: Disp Refills Levothyroxine Sodium 100 MCG Oral Tablet (*90 Tab*0 Sig: Take 1 Tablet by mouth in the morning. (at least 30 min prior to breakfast or other meds). * Telephone Encounter - Rosa Cohen OSA - 03/24/2024 10:04 AM EDT Pending Prescriptions: Disp Refills Levothyroxine Sodium 100 MCG Oral Tablet *90 Tab*0 Sig: Take 1 Tablet by mouth in the morning. (at least 30 min prior to breakfast or other meds). Last Visit: 01/09/2024 (in office), Visit date not found (telemedicine) Next Visit: 04/30/2024 Last date the medication was ordered: Patient Active Problem List Diagnosis S/P cervical spinal fusion Well adult exam Hypothyroidism, unspecified Chronic kidney disease, stage 3b (HCC) Witnessed episode of apnea Gastroesophageal reflux disease without esophagitis Labs: Lab Results Component Value Date/Time CREATININE - [facility] 1.5 (H) 01/08/2024 10:35 AM CREATININE - [facility] 1.5 (H) 04/13/2020 03:43 PM CREATININE, RANDOM URINE - [facility] 19 04/24/2023 11:06 AM CREATININE, RANDOM URINE - [facility] 46 04/06/2020 10:20 AM CREATININE-OUTSIDE LAB 1.47 (A) 12/25/2019 12:00 AM Lab Results Component Value Date/Time POTASSIUM - [facility] 4.4 01/08/2024 10:35 AM POTASSIUM - [facility] 4.8 04/13/2020 03:43 PM POTASSIUM-OUTSIDE LAB 5.0 12/25/2019 12:00 AM Lab Results Component Value Date/Time TSH - [facility] 5.91 (H) 01/08/2024 10:35 AM TSH - [facility] 6.35 (H) 06/23/2020 10:12 AM TSH W/REFLEX TO FT4-[facility] H 25.400 (A) 12/25/2019 12:00 AM Lab Results Component Value Date/Time LDL CHOLESTEROL (CALCULATED) - [facility] 117 02/19/2023 10:59 AM LDL CHOLESTEROL (CALCULATED) - [facility] 116 02/23/2020 01:03 PM LDL CHOLESTEROL (DIRECT MEASURE) - [facility] NOT APPLICABLE 02/23/2020 01:03 PM Lab Results Component Value Date/Time ALT - [facility] 24 01/08/2024 10:35 AM ALT - [facility] 9 (L) 04/13/2020 03:43 PM Hemoglobin AIC Results: No results found for: "HEMOGLOBIN A1C" documented in this encounter Plan of Treatment Upcoming Encounters Date Type Department Care Team (Late st Contact Info) Description 04/30/2024 10:00 AM EDT Office Visit Family Practice [address] [place] [phone] Sweta Carlos DO [address] [place] [address] 06/22/2024 10:00 AM EDT Office Visit Dermatology, Monae Bruner [address] [address] Joanie Smith PA-C [address] [address] Scheduled Procedures Name Priority Associated Diagnoses Date/Ti me LAPAROSCOPIC REPAIR INGUINAL HERNIA INITIAL Recurrent right inguinal hernia Health Maintenance Due Date Last Done Comments Zoster Vaccines (2 of 3) 05/03/2010 03/08/2010 Albumin/Creatinine Ratio 04/24/2024 023, 02/19/2023, 02/27/2022 CKD PHOS USE SMARTSET 82523 04/24/202404/15 , 02/19/2023, 02/27/2022, Additional history exists Influenza Vaccine (FLU shot) (#1) 2024 06/04/2023, 05/21/2022, 05/28/2021, Additional history exists Depression Screening 08/18/2024 08/18/2023 CKD HGB USE SMARTSET 13088 01/07/202501/07, 01/08/2024, 04/24/2023, Additional history exists TSH 01/07/2025 01/08/2024, 12/2022, 04/24/2023, Additional history exists Pneumococcal Vaccine: 65+ Years Completed 06/28/2021, 05/17/2020, 06/07/2016, Additional history exists COVID-19 Vaccine Completed 01/09/2024, , 01/22/2023, Additional history exists HPV (Gardasil) Vaccine Aged Out No lo nger eligible based on patient's age to complete this topic Hepatitis B Vaccine Aged Out No longe r eligible based on patient's age to complete this topic MENINGOCOCCAL (MENACTRA/MENVEO) Aged Out No longer eligible based on patient's age to complete this topic documented as of this encounter Medical Devices Not on filedocumented as of this encounter Care Teams Energy Project Engineer Relationship Specialty Start Date End Date Sweta Carlos DO PCP - General Family Medicine 02/19/23 documented as of this encounter
--- OUTSIDE RECORDS SUMMARY | 2024-04-19 23:31 | External Medical Summary | Summary of Care ---
Author Name Unknown Organization [facility] Address [address] [facility] [place] [address] Phone [phone] Care Team Providers Care Chief Ultrasound Technologist Name Role Phone Sweta Waters DO Primary Care Provider + [phone] Reason for Visit * Reason Comments Follow Up Recurrent unilateral inguinal hernia, surgery on 02/16/2024 Encounter Details Date Type Department Care Team (Late st Contact Info) Description 03/04/2024 11:30 AM EDT Office Visit General Surgery, [facility] [address] [place] [address] Maisha Lewis PA-C [address] [place] [address] Postop check* Allergies Active Allergy Reactions Criticality Noted Date Comments Pollen 01/08/2024 Sulfa Antibiotics 07/31/1998 hepatitis Tetanus-Diphtheria Toxoids Td 02/23/2020 Lightheaded. When was 19. Near syncope. Has done fine with newer tdap. documented as of this encounter (statuses as of 03/04/2024) Medications Medication Sig Dispensed Refills Start Date End Date Status diphenhydrAMINE HCl 25 MG Oral Capsule Take 1 Capsule by mouth every 6 hours as needed for Other (hay fever). Active Amoxicillin 500 MG Oral Capsule (Amoxil) 01/21/2023 Active Chlorhexidine Gluconate 0.12 % Mouth/Throat Solution (Periogard) 01/21/2023 Acti ve Levothyroxine Sodium 100 MCG Oral Tablet (Levoxyl) Take 1 Tablet by mouth in the morning. (at least 30 min prior to breakfast or other meds). 90 Tablet 01/12/2024 Active documented as of this encounter (statuses as of 03/04/2024) Active Problems Problem Noted Date Diagnosed Date Gastroesophageal reflux disease without esophagi tis 08/18/2023 Witnessed episode of apnea 02/27/2022 Chronic kidney disease, stage 3b 01/23/2021 Overview: Per CKD protocol Hypothyroidism, unspecified 04/27/2020 Well adult exam 02/23/2020 Overview: -Dee. Sister in law was Cathy Wiggins. Former PCP Dr Gallegos [facility] S/P cervical spinal fusion documented as of this encounter (statuses as of 03/04/2024) Resolved Problems Problem Noted Date Diagnosed Date Resolved Date Kidney disease, chronic, sta ge III (GFR 30-59 ml/min) 02/25/2020 01/25/2021 Overview: Per CKD protocol documented as of this encounter (statuses as of 03/04/2024) Immunizations Name Administration Dates Next Due COVID-19 mRNA, LNP-s, No Pre serve, 2-Dose Series ([employer]) 06/12/2021,11/28/2020,11/07/2020 COVID-19, LNP-s, No Preserve , Wale-sucrose, Ages 12+ (Pfizer) 01/17/2022 COVID-19, MRNA-LNP, 23-24, P F, 30 MCG/0.3 mL, 12 YRS AND ABOVE, IM (PFIZER-Comirnaty) 01/09/2024,06/30/2023 Covid-19, Mrna, Lnp-s, Pf, B ivalent, [...] Passive Smoke Exposure: Past Smokeless Tobacco: Never Tobacco Cessation:Counseling Given: Not Answered Alcohol Use Standard Drinks/Week Comments No 0 [...] on file documented as of this encounter Last Filed Vital Signs Vital Sign Reading Time Taken Comments Blood Pressure - - Pulse - - Temperature 36.7 C (98.1 F) 03/04/2024 11:09 AM E DT Respiratory Rate - - Oxygen Saturation - - Inhaled Oxygen Concentration - - Weight - - Height - - Body Mass Index - - documented in this encounter Progress Notes * Maisha Lewis PA-C - 03/04/2024 11:37 AM EDT Subjective: Chief Complaint Patient presents with Follow Up Recurrent unilateral inguinal hernia, surgery on 02/16/2024 The patient is 17 days status post a laparoscopic right inguinal new hernia repair. A mesh was usedin the procedure. Any pain related to your visit today? No The patient is not having any pain. The patient is eating well, without constipation, and voiding without difficulty Physical Exam Temp 36.7 C (98.1 F) Constitutional: alert, no distress, well nourished, well developed, comfortable, and cooperative Abdomen: soft bowel sounds active non-tender Laparoscopic Port Site Incisions: healing well, no drainage, no dehiscence, no erythema, no hernia,and no seroma Tenderness at incision site: none Impression: Doing well status post repair of right inguinal hernia Plan: Discharge with the following activity restrictions: May start increasing activity slowly and lifting slowly in increments of 10 pounds as tolerated. See Medication list for current prescriptions. Return to clinic as needed and call with any questions/concerns. Maisha Lewis PA-C 03/04/2024 11:38 AM documented in this encounter Nursing Notes * Michelle Villalpando LPN - 03/04/2024 11:10 AM EDT Patient identified by name and date of . Chief Complaint Patient presents with Follow Up Recurrent unilateral inguinal hernia, surgery on 02/16/2024 Pt presents with no pain. No concerns- other than the glue is still present on the incision. Pt told that it will fall off on its own. Pt asking about swimming. documented in this encounter Plan of Treatment Upcoming Encounters Date Type Department Care Team (Late st Contact Info) Description 04/30/2024 10:00 AM EDT Office Visit Family Practice [address], [place] 293 [place] [address] Sweta Waters DO [address] [place] [address] 06/22/2024 10:00 AM EDT Office Visit Dermatology, [facility] [address] [facility] [address] [place] [address] Joanie Smith PA-C [address] [facility] [address] [place] [address] Scheduled Procedures Name Priority Associated Diagnoses Date/Ti me LAPAROSCOPIC REPAIR INGUINAL HERNIA INITIAL Recurrent right inguinal hernia Health Maintenance Due Date Last Done Comments Zoster Vaccines (2 of 3) 05/03/2010 03/08/2010 Albumin/Creatinine Ratio 04/24/2024 023, 02/19/2023, 02/27/2022 CKD PHOS USE SMARTSET 43409 04/24/2024 08/, 02/19/2023, 02/27/2022, Additional history exists Depression Screening 08/18/2024 08/18/2023 CKD HGB USE SMARTSET 74184 01/07/202501/07, 01/08/2024, 04/24/2023, Additional history exists TSH 01/07/2025 01/08/2024, 1212/2022, 04/24/2023, Additional history exists Pneumococcal Vaccine: 65+ Years Completed 06/28/2021, 05/17/2020, 06/07/2016, Additional history exists Influenza Vaccine (FLU shot) Completed , 05/21/2022, 05/28/2021, Additional history exists COVID-19 Vaccine Completed 01/09/2024, , 01/22/2023, Additional history exists GARDASIL-HPV IMMUNIZATION SERIES Aged Out No longer eligible based on patient's age to complete this topic Hepatitis B Aged Out No longer eligi ble based on patient's age to complete this topic MENINGOCOCCAL (MENACTRA/MENVEO) Aged Out No longer eligible based on patient's age to complete this topic documented as of this encounter Medical Devices Not on filedocumented as of this encounter Visit Diagnoses Diagnosis Postop check- Primary Follow-up examination, following unspecified surgery documented in this encounter Care Teams Chief Ultrasound Technologist Relationship Specialty Start Date End Date Sweta Waters DO PCP - General Family Medicine 02/19/23 documented as of this encounter
--- OUTSIDE RECORDS SUMMARY | 2024-04-19 23:32 | External Medical Summary | Summary of Care ---
Author Name Unknown Organization [facility] Address [address] [place] [address] Phone [phone] Care Team Providers Care Drum Printer Name Role Phone JudahSweta kahn Rudy BLUNT Primary Care Provider [phone] Reason for Visit * Reason Onset Date Comments Advice 02/18/2024 Encounter Details Date Type Department Care Team (Late st Contact Info) Description 02/18/2024 Telephone General Surgery, [facility] [address] [place] [address] Services, Scheduling [address] [place] [address] Advice Allergies Active Allergy Reactions Criticality Noted Date Comments Pollen 01/08/2024 Sulfa Antibiotics 07/31/1998 hepatitis Tetanus-Diphtheria Toxoids Td 02/23/2020 Lightheaded. When was 19. Near syncope. Has done fine with newer tdap. documented as of this encounter (statuses as of 02/18/2024) Medications Medication Sig Dispensed Refills Start Date [...] as of this encounter (statuses as of 02/18/2024) Active Problems Problem Noted Date Diagnosed Date Gastroesophageal reflux disease without esophagi tis 08/18/2023 Witnessed episode of apnea 02/27/2022 Chronic kidney disease, stage 3b 01/23/2021 Overview: Per CKD protocol Hypothyroidism, unspecified 04/27/2020 Well adult exam 02/23/2020 Overview: -Dee. Sister in law was Cathy Wiggins. Former PCP Dr Gallegos [facility] S/P cervical spinal fusion documented as of this encounter (statuses as of 02/18/2024) Resolved Problems Problem Noted Date Diagnosed Date Resolved Date Kidney disease, chronic, sta ge III (GFR 30-59 ml/min) 02/25/2020 01/25/2021 Overview: Per CKD protocol documented as of this encounter (statuses as of 02/18/2024) Immunizations Name Administration Dates Next Due COVID-19 mRNA, LNP-s, No Pre serve, 2-Dose Series ([employer]) 06/12/2021,11/28/2020,11/07/2020 COVID-19, LNP-s, No Preserve , Wale-sucrose, Ages 12+ (Pfizer) 01/17/2022 COVID-19, MRNA-LNP, 23-24, P F, 30 MCG/0.3 mL, 12 YRS AND ABOVE, IM ([employer]eebeam-Comirnat) 01/09/2024,06/30/2023 Covid-19, Mrna, Lnp-s, Pf, B ivalent, 30 Mcg, IM, 12 yrs and above ([employer]uvotronics) 01/22/2023,05/27/2022 Pneumococcal Conjugate Vacc, 13 Valent (Prevnar) [...] encounter Miscellaneous Notes * Telephone Encounter - Anupama Mustafa LPN - 02/18/2024 1:57 PM EDT Tried to call patient but was not able to leave a message on the answering machine. * Telephone Encounter - Pepper Rudolph OSA - 02/18/2024 1:40 PM EDT Pt , Dee, calling in, Pt had surgery with Dr. Riggins on 02/15. Pt was in the ER last night due to no BM since surgery, extreme pain and swelling. ER did CT and Xrays, no findings. They sent pt home with a suppository and pt still has not had a bm and still in a lot of pain. Need to know what to do, no answer on warm transfer. Please return call documented in this encounter Plan of Treatment Upcoming Encounters Date Type Department Care Team (Late st Contact Info) Description 03/03/2024 11:45 AM EDT Office Visit General Surgery, [facility] [address] [place] [address] Ramiro Riggins MD [address] [place] [address] 04/30/2024 10:00 AM EDT Office Visit Family Practice [address] [place] [address], [place] 293 [place] [address] Sweta Waters DO 293 [place] [address] 06/22/2024 10:00 AM EDT Office Visit Dermatology, [facility] [address] [place] [address] [place] [address] Joanie Smith PA-C [address] [place] [address] [place] [address] Scheduled Procedures Name Priority Associated Diagnoses Date/Ti me LAPAROSCOPIC REPAIR INGUINAL HERNIA INITIAL Recurrent right inguinal hernia Health Maintenance Due Date Last Done Comments Zoster Vaccines (2 of 3) 05/03/2010 03/08/2010 Albumin/Creatinine Ratio 04/24/2024 023, 02/19/2023, 02/27/2022 CKD PHOS USE SMARTSET 75502 04/24/2024 08, 02/19/2023, 02/27/2022, Additional history exists Depression Screening 08/18/2024 08/18/2023 CKD HGB USE SMARTSET 78359 01/07/202501/07, 01/08/2024, 04/24/2023, Additional history exists TSH [...] filedocumented as of this encounter Care Teams Drum Printer Relationship Specialty Start Date End Date Sweta Waters DO [address] [place] [address] PCP - General Family Medicine 02/19/23 documented as of this encounter
--- OUTSIDE RECORDS SUMMARY | 2024-04-19 23:32 | External Medical Summary | Summary of Care ---
Author Name Unknown Organization [facility] Address [address] [place] [address] Phone [phone] Care Team Providers Care Branch Service Leader Name Role Phone Sweta Waters DO Primary Care Provider Reason for Visit * Reason Onset Date Comments Emergency Department Follow-Up 02/18/2024 Encounter Details Date Type Department Care Team (Late st Contact Info) Description 02/18/2024 Telephone Family Practice [address], [place] [address] [place] [address] Sweta Waters DO [address] [place], [place] [id number] Emergency Department Follow-Up Allergies Active Allergy Reactions Criticality Noted Date [...] was Cathy Wiggins. Former PCP Dr Gallegos [facility] S/P cervical spinal fusion documented as of this encounter (statuses as of 02/18/2024) Resolved Problems Problem Noted Date Diagnosed Date Resolved Date Kidney disease, chronic, sta ge III (GFR 30-59 ml/min) 02/25/2020 01/25/2021 Overview: Per CKD protocol documented as of this encounter (statuses as of 02/18/2024) Immunizations Name Administration Dates Next Due COVID-19 mRNA, LNP-s, No Pre serve, 2-Dose Series ([employer]) 06/12/2021,11/28/2020,11/07/2020 COVID-19, LNP-s, No Preserve , Wale-sucrose, [...] encounter Miscellaneous Notes * Telephone Encounter - Letitia Diallo RN - 02/18/2024 2:09 PM EDT Noted-already spoke with pt/pt's * Telephone Encounter - Huong Hernandez OSA - 02/18/2024 1:22 PM EDT Patient returned call and LMOM for a return call * Telephone Encounter - Letitia Diallo RN - 02/18/2024 1:05 PM EDT Emergency Department Follow Up: When was patient seen: 02/18/24 Which ED: [place] What were they seen for: lower abdominal pain, bilateral groin pain (2 days post op from inguinal hernia repair What testing did they have done: lab work and ct scan What did ED think was wrong (dx): constipation Any new medications prescribed: dulcolax suppository How is patient feeling today: pt seen early this AM in ER.states was given a dulcolax suppository-hasn't had a BM yet, but is passing a little gas. Abdomen not as bloated and not as painful. Last PM pain 8 out of 10, now 2-3 out of 10. Is staying hydrated. Discussed using prune juice. Also discussed a stool softener. Pt's trying to contact surgeon-Dr Ramiro Riggins-but number they gave him was no longer in service. Looked number up and gave to -she will call surgeon for any further recommendations. Pt only using tylenol 500 mg for pain-no narcotics. also gave him some clear-lax.Declines f/u appt with pcp at this time-will be following with surgeon but will call if having any further problems. Patient concerns today: documented in this encounter Plan of Treatment Upcoming Encounters Date Type Department Care Team (Late st Contact Info) Description 03/03/2024 11:45 AM EDT Office Visit General Surgery, [facility] [address] [place] [address] Ramiro Riggins MD [address] [place] [address] 04/30/2024 10:00 AM EDT Office Visit Family Practice [address] [place] [address] 293 [place] [address] Sweta Waters DO 293 [place] [address] 06/22/2024 10:00 AM EDT Office Visit Dermatology, [facility] [address] [facility] [address] [place] [address] Joanie Smith, JENNAC [address] [place] [address] [place] [address] Scheduled Procedures Name Priority Associated Diagnoses Date/Ti me LAPAROSCOPIC REPAIR INGUINAL HERNIA INITIAL Recurrent right inguinal hernia Health Maintenance Due Date Last Done Comments Zoster Vaccines (2 of 3) 05/03/2010 03/08/2010 Albumin/Creatinine Ratio 04/24/2024 023, 02/19/2023, 02/27/2022 CKD PHOS USE SMARTSET 28026 04/24/2024 08/, 02/19/2023, 02/27/2022, Additional history exists Depression Screening 08/18/2024 08/18/2023 CKD HGB USE SMARTSET 50357 01/07/202501/07, 01/08/2024, 04/24/2023, Additional history exists TSH [...] filedocumented as of this encounter Care Teams Branch Service Leader Relationship Specialty Start Date End Date Sweta Waters DO [address] [place] [address] PCP - General Family Medicine 02/19/23 documented as of this encounter
--- OUTSIDE RECORDS SUMMARY | 2024-04-19 23:32 | External Medical Summary | Summary of Care ---
Author Name Unknown Organization [facility] Address [address] [place] [address] Phone [phone] Care Team Providers Care Brace End Mainspring Former Name Role Phone JudahSweta kahn Rudy BLUNT Primary Care Provider [phone] Reason for Visit * Reason Onset Date Comments Advice 02/18/2024 Encounter Details Date Type Department Care Team (Late st Contact Info) Description 02/18/2024 Telephone General Surgery, [facility] [address] [place] [address] Services, Scheduling [address] [place] [address] Advice Allergies Active Allergy Reactions Criticality Noted Date Comments Pollen 01/08/2024 Sulfa Antibiotics 07/31/1998 hepatitis Tetanus-Diphtheria Toxoids Td 02/23/2020 Lightheaded. When was 19. Near syncope. Has done fine with newer tdap. documented as of this encounter (statuses as of 02/19/2024) Medications Medication Sig Dispensed Refills Start Date [...] as of this encounter (statuses as of 02/19/2024) Active Problems Problem Noted Date Diagnosed Date Gastroesophageal reflux disease without esophagi tis 08/18/2023 Witnessed episode of apnea 02/27/2022 Chronic kidney disease, stage 3b 01/23/2021 Overview: Per CKD protocol Hypothyroidism, unspecified 04/27/2020 Well adult exam 02/23/2020 Overview: -Dee. Sister in law was Cathy Wiggins. Former PCP Dr Gallegos [facility] S/P cervical spinal fusion documented as of this encounter (statuses as of 02/19/2024) Resolved Problems Problem Noted Date Diagnosed Date Resolved Date Kidney disease, chronic, sta ge III (GFR 30-59 ml/min) 02/25/2020 01/25/2021 Overview: Per CKD protocol documented as of this encounter (statuses as of 02/19/2024) Immunizations Name Administration Dates Next Due COVID-19 mRNA, LNP-s, No Pre serve, 2-Dose Series ([employer]) 06/12/2021,11/28/2020,11/07/2020 COVID-19, LNP-s, No Preserve , Wale-sucrose, Ages 12+ (Pfizer) 01/17/2022 COVID-19, MRNA-LNP, 23-24, P F, 30 MCG/0.3 mL, 12 YRS AND ABOVE, IM ([email or web address]-Comirnat) 01/09/2024,06/30/2023 Covid-19, Mrna, Lnp-s, Pf, B ivalent, 30 Mcg, IM, 12 yrs and above ([employer]) 01/22/2023,05/27/2022 Pneumococcal Conjugate Vacc, 13 Valent (Prevnar) [...] 11:45 AM EDT Office Visit General Surgery, [facility] [address] [address] Ramiro Riggins MD [address] [place] [address] 04/30/2024 10:00 AM EDT Office Visit Family Practice [address] [place] [address], [place] 293 [place] [address] Sweta Waters DO 293 [place] [address] 06/22/2024 10:00 AM EDT Office Visit Dermatology, [facility] [address] [address] [place] [address] Joanie Smith PA-C [address] [address] [place] [address] Scheduled Procedures Name Priority Associated Diagnoses Date/Ti me LAPAROSCOPIC REPAIR INGUINAL HERNIA INITIAL Recurrent right inguinal hernia Health Maintenance Due Date Last Done Comments Zoster Vaccines (2 of 3) 05/03/2010 03/08/2010 Albumin/Creatinine Ratio 04/24/2024 023, 02/19/2023, 02/27/2022 CKD PHOS USE SMARTSET 84863 04/24/2024 08, 02/19/2023, 02/27/2022, Additional history exists Depression Screening 08/18/2024 08/18/2023 CKD HGB USE SMARTSET 11278 01/07/202501/07, 01/08/2024, 04/24/2023, Additional history exists TSH [...] filedocumented as of this encounter Care Teams Brace End Mainspring Former Relationship Specialty Start Date End Date Sweta Waters DO [address] [place] [address] PCP - General Family Medicine 02/19/23 documented as of this encounter
--- OUTSIDE RECORDS SUMMARY | 2024-04-19 23:32 | External Medical Summary | Summary of Care ---
Author Name Unknown Organization [facility] Address [address] [place] [address] Phone [phone] Care Team Providers Care Salt Cutter Name Role Phone JudahSweta kahn Rudy BLUNT Primary Care Provider [phone] Reason for Visit * Reason Onset Date Comments Advice 02/18/2024 Encounter Details Date Type Department Care Team (Late st Contact Info) Description 02/18/2024 Telephone General Surgery, [facility] [address] [place] [address] Services, Scheduling [address] [place] [address] Advice Allergies Active Allergy Reactions Criticality Noted [...] was Cathy Wiggins. Former PCP Dr Gallegos [facility] S/P cervical spinal fusion documented as of this encounter (statuses as of 02/18/2024) Resolved Problems Problem Noted Date Diagnosed Date Resolved Date Kidney disease, chronic, sta ge III (GFR 30-59 ml/min) 02/25/2020 01/25/2021 Overview: Per CKD protocol documented as of this encounter (statuses as of 02/18/2024) Immunizations Name Administration Dates Next Due COVID-19 mRNA, LNP-s, No Pre serve, 2-Dose Series ([employer]) 06/12/2021,11/28/2020,11/07/2020 COVID-19, LNP-s, No Preserve , Wale-sucrose, Ages 12+ (Pfizer) 01/17/2022 COVID-19, MRNA-LNP, 23-24, P F, 30 MCG/0.3 mL, 12 YRS AND ABOVE, IM ([employer]-Comirnat) 01/09/2024,06/30/2023 Covid-19, Mrna, Lnp-s, Pf, B ivalent, 30 Mcg, IM, 12 yrs and above ([employer]) 01/22/2023,05/27/2022 Pneumococcal Conjugate Vacc, 13 Valent (Prevnar) [...] 11:45 AM EDT Office Visit General Surgery, [facility] [address] [address] Ramiro Riggins MD [address] [place] [address] 04/30/2024 10:00 AM EDT Office Visit Family Practice [address] [place] [address], [place] 293 [place] [address] Sweta Waters DO 293 [place] [address] 06/22/2024 10:00 AM EDT Office Visit Dermatology, [facility] Bruner [address] [place] [address] [place] [address] Joanie Smith PA-C [address] [place] [address] [place] [address] Scheduled Procedures Name Priority Associated Diagnoses Date/Ti me LAPAROSCOPIC REPAIR INGUINAL HERNIA INITIAL Recurrent right inguinal hernia Health Maintenance Due Date Last Done Comments Zoster Vaccines (2 of 3) 05/03/2010 03/08/2010 Albumin/Creatinine Ratio 04/24/2024 023, 02/19/2023, 02/27/2022 CKD PHOS USE SMARTSET [id number] 04/24/2024 08, 02/19/2023, 02/27/2022, Additional history exists Depression Screening 08/18/2024 08/18/2023 CKD HGB USE SMARTSET 17805 01/07/202501/07, 01/08/2024, 04/24/2023, Additional history exists TSH [...] filedocumented as of this encounter Care Teams Salt Cutter Relationship Specialty Start Date End Date Sweta Waters DO [address] [place] [address] PCP - General Family Medicine 02/19/23 documented as of this encounter
--- OUTSIDE RECORDS SUMMARY | 2024-04-19 23:32 | External Medical Summary | Summary of Care ---
Author Name Unknown Organization [facility] Address [address] [place] [address] Phone [phone] Care Team Providers Care Plastic Installer Name Role Phone Sweta Waters DO Primary Care Provider [phone] Reason for Visit * Reason Onset Date Comments Emergency Department Follow-Up 02/18/2024 Encounter Details Date Type Department Care Team (Late st Contact Info) Description 02/18/2024 Telephone Family Practice [address] [place] [address] [place] [address] Sweta Waters DO [address] [place], [place] [id number] Emergency Department Follow-Up Allergies Active Allergy Reactions [...] was Cathy Wiggins. Former PCP Dr Gallegos [facility] S/P cervical spinal fusion documented as of this encounter (statuses as of 02/18/2024) Resolved Problems Problem Noted Date Diagnosed Date Resolved Date Kidney disease, chronic, sta ge III (GFR 30-59 ml/min) 02/25/2020 01/25/2021 Overview: Per CKD protocol documented as of this encounter (statuses as of 02/18/2024) Immunizations Name Administration Dates Next Due COVID-19 mRNA, LNP-s, No Pre serve, 2-Dose Series (Validus) 06/12/2021,11/28/2020,11/07/2020 COVID-19, LNP-s, No Preserve , Wale-sucrose, [...] encounter Miscellaneous Notes * Telephone Encounter - Huong Hernandez OSA - 02/18/2024 1:22 PM EDT Patient returned call and LMOM for a return call * Telephone Encounter - Letitia Diallo RN - 02/18/2024 1:05 PM EDT Emergency Department Follow Up: When was patient seen: 02/18/24 Which ED: [facility] What were they seen for: lower abdominal [...] [facility] [address] [address] Ramiro Riggins MD [address] [address] 04/30/2024 10:00 AM EDT Office Visit Family Practice [address] [place] [address] [address] [place] [address] Sweta Waters DO [address] [place] [address] 06/22/2024 10:00 AM EDT Office Visit Dermatology, Monae Bruner [address] [place] [address] Joanie Smith PA-C [address] [place] [address] Scheduled Procedures Name Priority Associated Diagnoses Date/Ti me LAPAROSCOPIC REPAIR INGUINAL HERNIA INITIAL Recurrent right inguinal hernia Health Maintenance Due Date Last Done Comments Zoster Vaccines (2 of 3) 05/03/2010 03/08/2010 Albumin/Creatinine Ratio 04/24/2024 023, 02/19/2023, 02/27/2022 CKD PHOS USE SMARTSET 72251 04/24/2024 08/1 , 02/19/2023, 02/27/2022, Additional history exists Depression Screening 08/18/2024 08/18/2023 CKD HGB USE SMARTSET 62094 01/07/202501/07, 01/08/2024, 04/24/2023, Additional history exists TSH 01/07/2025 01/08/2024, 12/0 12/2022, 04/24/2023, Additional history exists Pneumococcal Vaccine: [...] filedocumented as of this encounter Care Teams Plastic Installer Relationship Specialty Start Date End Date Sweta Waters DO [address] [place] [address] PCP - General Family Medicine 02/19/23 documented as of this encounter
[2024-04-20 04:47] LABS: Hematocrit (blood only) 39.8 % (42.0-52.0); Hemoglobin 13.8 g/dl (14.0-18.0); Mean Corpuscular Hemoglobin 30.7 pg (25.0-34.0); Mean Corpuscular Hgb Conc 34.7 g/dL (32.0-36.0); Mean Corpuscular Volume 88.4 fL (80.0-100.0); Platelet Count 163 K/uL (130-400); RDW Coefficient of Variation 12.8 % (11.5-14.5); RDW Standard Deviation 41.8 fL (36.4-46.3); White Blood Count 7.02 K/ul (4.8-10.8)
[2024-04-20 05:07] LABS: BUN Creatinine Ratio 13.9 (10-20); Creatinine Clr Calc Pharmacy 30.5 ml/min; Est GFR (African American) 50.2 ml/min; Est GFR (Non-African American) 43.4 ml/min; Potassium 4.3 mmol/L (3.5-5.1)
[2024-04-20] MEDS: LEVOTHYROXINE SODIUM 100 MCG TABLET PO SCH (06:02)
--- NOTE | 2024-04-20 09:01 | Cardiology Consultation ---
Date of Consultation April 20, 2024 Assessment & Plan (1) Symptomatic bradycardia: Patient presents with 2 near syncopal episodes while driving, with 5 episodes noted otherwise over the last 2 weeks. Initial EKG revealed marked sinus bradycardia with rate of 41 bpm. Telemetry overnight and his predominately revealed sinus bradycardia with ventricular rate in the 40s, down to 34 during anticipated hours of sleep. No evidence of heart block or pauses. Presentation consistent with sick sinus syndrome and resultant near syncope. TSH is within normal limits, Lyme screen negative. Ejection fraction normal. Recommend proceeding with dual-chamber permanent pacemaker for heart rate support. Risks and benefits discussed with patient and he is agreeable to proceeding. (2) Vertebral artery stenosis: He CT angiogram of the head and neck vessels revealed patent bilateral common carotid and internal carotid arteries with mild plaque within the proximal bilateral internal carotid arteries without stenosis. There is severe multifocal stenosis within the right vertebral artery noted. Recommend initiation of statin therapy for this, the admitting team already started atorvastatin 20 mg daily, and a lipid panel has been drawn, the results of which are pending. (3) Mild aortic stenosis: Borderline to mild aortic stenosis noted on echocardiogram. Repeat echo as outpatient in one year. History of Present Illness Attending Physician: Campbell Byrd MD History of Present Illness Mr Ibanez Is an 88-year-old male seen in cardiology consultation per the request of JONATHAN Hanks for the evaluation of symptomatic bradycardia. The patient describes himself as being in good health. His only maintenance medi cine is levothyroxine. Yesterday, he was driving from [place] to his son's house. Shortly into his trip, he felt an sensation of cloudiness "like he was under anesthesia" and had difficulty driving. He pulled over and the symptoms passed. He started driving again and shortly [place] [address] the symptoms happened again but were more profound prompting him to pack puller a second time. He did actually complete his trip, but then asked his family to bring him to his primary care provider's office. He was subsequently assessed at the [place] [address] for clinic where an EKG was performed and he was found to have significant sinus bradycardia and he was referred to the emergency department for further evaluation. On further questioning the patient states that over the preceding 2 weeks he has had 5 episodes of lightheadedness and near syncope in advance of the episodes he had while driving yesterday. He has no past history of heart disease. 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 [employer] Has a second home in the [place] where he spends the winter Allergies Allergy/AdvReac Type Severity Reaction Status Date / Time Horse/Equine Containing Allergy Intermediate FROM HORSE Verified 02/18/24 01:45 Products SERUM TETANUS pollen extracts Allergy Intermediate HAYFEVER Verified 02/18/24 01:46 SYMPTOMS tetanus toxoid, adsorbed Allergy Intermediate BURNING Verified 02/18/24 01:45 SENSATION ALL OVER BODY - "ALMOST WENT UNCONSCIOUS" Sulfa (Sulfonamide AdvReac Severe "ENDED UP Verified 02/18/24 01:45 Antibiotics) WITH HEPATITIS AFTER TAKING MED" Home Medications Medication Instructions Recorded Confirmed Type diphenhydramine HCl 25 mg tablet 25 mg PO TID PRN Allergy Symptoms 01/27/24 04/19/24 History levothyroxine 100 mcg capsule 100 mcg PO DAILYBB 01/27/24 04/19/24 History Patient History Medical History Recurrent right inguinal hernia [place] (hard of hearing) History of bradycardia per "always naturally has a very low pulse rate" Hx MRSA infection ~2008, hospitalized 7 days while out of the country in [facility], leg wound>treated Hx of urinary frequency Hypothyroidism History of diverticulitis Chronic kidney disease stage 3, possibly 4 per ; f/u PCP Cervical vertebral fusion ~2006 or 2007, per "very top of neck area, also removed 8 bone fragments from his neck">ROM is limited Anemia stated "she never knew about this, doesn't think this is correct" Blood pressure elevated without history of HTN per , recently blood pressure "has been good, never medicated for this" Erectile dysfunction Personal history of pneumonia (recurrent) ~2013, thinks he only had it once, not hosp; no residual symptoms Surgical History Hx of colonoscopy Hx of oral surgery oral implants placed Hx of bilateral cataract extraction H/O: vasectomy H/O inguinal hernia repair x2, right side Family History Mother Glaucoma Denies family history of Ovarian cancer Prostate cancer Myocardial infarction Breast cancer Colorectal cancer Social History Smoking Status: Never smoker Second Hand Exposure: No; Do You Dip or Chew Tobacco: No; Hx Alcohol Use: No Hx Substance Use: No Preferred Language: Wallisian Communication Ability: Effective Hog Tender Required: No Beliefs That Will Affect Care: None marital status: Current Living Situation: Family Current Living Situation Comment: with and daughter current occupational status: retired Feels Safe at Home: Yes Safety Concerns: Feels Safe At This Time Childhood Exposure to Second-Hand Smoke: No Physical Activity Frequency: Daily Assistive Devices: None Review of Systems Review of Systems: All systems reviewed & are unremarkable except as noted in HPI & below Physical Exam Constitutional: WD/WN, vitals as above Respiratory: normal respiratory effort, lungs clear to auscultation Cardiovascular: Rate/Rhythm: regular rate and + bradycardic Heart Sounds: n ormal S1 and normal S2; no murmur Vessels: no JVD Extremities: no edema Gastrointestinal (Abdomen): normal bowel sounds, soft, nontender, no hepatosplenomegaly Neurologic: PERRL, EOMI, accommodation nl, no face palsy, no dysarthria Results & Data Vital Signs (Past 12 Hours) Vital Signs Temp Pulse Pulse Resp BP BP Pulse Ox 04/20/24 06:00 150/77 H 04/20/24 06:00 150/77 H 04/20/24 06:00 150/77 H 04/20/24 06:00 38 L 15 94 04/20/24 05:33 37 L 13 94 04/20/24 05:24 43 L 10 L 97 04/20/24 05:00 38 L 12 97 04/20/24 05:00 147/78 H 04/20/24 05:00 147/78 H 04/20/24 04:51 42 L 12 95 04/20/24 04:45 45 L 13 92 04/20/24 04:33 46 L 18 98 04/20/24 04:21 45 L 12 95 04/20/24 04:12 42 L 12 97 04/20/24 04:00 139/70 04/20/24 04:00 43 L 14 91 04/20/24 03:51 42 L 11 L 96 04/20/24 03:42 39 L 10 L 97 04/20/24 03:31 36.9 C 04/20/24 03:27 42 L 14 94 04/20/24 03:15 42 L 15 93 04/20/24 02:51 38 L 12 97 04/20/24 02:42 46 L 18 92 04/20/24 02:39 39 L 15 93 04/20/24 02:27 45 L 16 92 04/20/24 02:18 46 L 11 L 93 04/20/24 02:00 119/62 04/20/24 02:00 119/62 04/20/24 01:51 38 L 12 95 04/20/24 01:42 41 L 7 L 96 04/20/24 01:39 40 L 20 95 04/20/24 01:21 35 L 11 L 95 04/20/24 01:12 41 L 18 94 04/20/24 01:09 38 L 11 L 95 04/20/24 01:00 137/85 04/20/24 00:53 138/67 04/20/24 00:48 59 L 22 95 04/20/24 00:42 43 L 15 138/67 96 04/20/24 00:39 45 L 14 98 04/20/24 00:12 43 L 9 L 96 04/20/24 00:06 41 L 10 L 97 04/19/24 23:48 46 L 13 99 04/19/24 23:46 158/75 H 04/19/24 23:46 158/75 H 04/19/24 23:36 47 L 16 04/19/24 23:28 04/19/24 23:21 54 L 20 04/19/24 23:00 139/70 04/19/24 23:00 139/70 04/19/24 23:00 51 L 23 139/70 96 04/19/24 23:00 51 L 23 139/70 96 04/19/24 22:42 48 L 17 96 04/19/24 22:25 53 L 18 161/78 H 94 04/19/24 21:40 49 L 04/19/24 21:00 52 L 16 142/78 H 95 Pulse Ox O2 Del Method O2 Del Method 04/20/24 06:00 04/20/24 06:00 04/20/24 06:00 08/06/24 06:00 04/20/24 05:33 04/20/24 05:24 04/20/24 05:00 04/20/24 05:00 04/20/24 05:00 04/20/24 04:51 04/20/24 04:45 04/20/24 04:33 04/20/24 04:21 04/20/24 04:12 04/20/24 04:00 04/20/24 04:00 04/20/24 03:51 04/20/24 03:42 04/20/24 03:31 04/20/24 03:27 04/20/24 03:15 04/20/24 02:51 04/20/24 02:42 04/20/24 02:39 04/20/24 02:27 04/20/24 02:18 04/20/24 02:00 04/20/24 02:00 04/20/24 01:51 04/20/24 01:42 04/20/24 01:39 04/20/24 01:21 04/20/24 01:12 04/20/24 01:09 04/20/24 01:00 04/20/24 00:53 04/20/24 00:48 04/20/24 00:42 04/20/24 00:39 04/20/24 00:12 04/20/24 00:06 04/19/24 23:48 04/19/24 23:46 04/19/24 23:46 04/19/24 23:36 04/19/24 23:28 96 Room Air 04/19/24 23:21 04/19/24 23:00 04/19/24 23:00 04/19/24 23:00 Room Air 04/19/24 23:00 Room Air 04/19/24 22:42 04/19/24 22:25 Room Air 04/19/24 21:40 04/19/24 21:00 Room Air Laboratory Results Cardiac Enzymes 04/19/24 04/19/24 Range/Units 15:58 17:03 AST Cancelled 22 Troponin I High Sens Cancelled 8.6 Coagulation 04/19/24 04/19/24 Range/Units 15:58 17:29 PT Cancelled 11.0 APTT Cancelled 29 CBC 04/19/24 04/20/24 Range/Units 15:58 04:31 WBC 7.51 7.02 (4.8-10.8) K/ul RBC 4.69 L 4.50 L (4.70-6.10) M/uL Hgb 14.0 13.8 L (14.0-18.0) g/dl Hct 41.5 L 39.8 L (42.0-52.0) % Plt Count 154 163 (130-400) K/uL Neut # (Auto) 4.20 (1.40-6.50) K/uL Lymph # (Auto) 2.12 (1.20-3.40) K/uL [place] # (Auto) 0.85 H (0.11-0.59) K/uL Eos # (Auto) 0.29 (0.00-0.50) K/uL Baso # (Auto) 0.04 (0.00-0.20) K/uL Comprehensive Metabolic Panel 04/19/24 04/19/24 04/20/24 Range/Units 15:58 17:03 04:31 Sodium Cancelled 138 138 Potassium Cancelled 4.3 4.3 Chloride Cancelled 107 109 H Carbon Dioxide Cancelled 27 25 BUN Cancelled 22 20 Creatinine Cancelled 1.43 H 1.44 H Glucose Cancelled 89 100 H Calcium Cancelled 9.0 9.0 AST Cancelled 22 ALT Cancelled 16 Alkaline Phosphatase Cancelled 50 Total Protein Cancelled 7.0 Albumin Cancelled 4.1 Intake and Output 04/19/24 04/20/24 04/20/24 22:59 06:59 14:59 Intake Total 500 / 1346.667 846.667 / 1346.667 Balance 500 / 1346.667 846.667 / 1346.667 Intake: IV 500 / 1091.667 591.667 / 1091.667 Sodium Chloride 0.9% 1,000 ml @ 591.667 / 591.667 125 mls/hr IV .Q8H JENNIFER Rx#: [id number] Sodium Chloride 0.9% 500 ml @ 500 / 500 999 mls/hr IV .Q31M ONE Rx#: [id number] Oral 255 / 255 Other: Other Intake Source w/thyroid pill Weight 59.6 kg Weight Measurement Method Built in [facility] Diagnostic Findings Lyme screen was normal. Thyroid-stimulating hormone as obtained on admission 04/19/2024 was within normal meds at 3.19 microunits/L EKG performed 04/19/2024 at 1759 and interpreted independently: Sinus bradycardia at 41 bpm, age-indeterminate septal infarction pattern, previously noted in February,, compared to the previous tracing dating back to February, frequent premature ventricular contractions in a pattern of ventricular bigeminy noted at that time. Transthoracic echocardiogram performed 04/20/2024 and interpret independently: Mild concentric left ventricular perjury No regional wall motion abnormalities LVEF in the range of 55 to 60% (normal) The aortic valve is mildly calcified, borderline to mild aortic valve stenosis is present There is mild mitral regurgitation (2) Vertebral artery stenosis Laterality: right Qualified Code(s): I65.01 - Occlusion and stenosis of right vertebral artery
[2024-04-20 09:14] LABS: Chol HDL Ratio 3.7 (0-5)
[2024-04-20 09:21] LABS: Troponin I High Sensitivity 10.5 pg/ml (0-20)
[2024-04-20] MEDS: ASPIRIN 81 MG ECTAB PO SCH (09:39)
[2024-04-20] MEDS: ATORVASTATIN 20 MG TAB PO SCH (09:39)
--- NOTE | 2024-04-20 09:50 | Electrocardiogram Report ---
Test Reason : Blood Pressure : */* mmHG Vent. Rate : 41 BPM Atrial Rate : 41 BPM P-R Int : 198 ms QRS Dur : 68 ms QT Int : 494 ms P-R-T Axes : 43 -16 54 degrees QTcB Int : 407 ms Marked sinus bradycardia with marked sinus arrhythmia Abnormal ECG Confirmed by Papito Geiger ([id number]) on 04/20/2024 9:50:20 AM Referred By: Sweta Waters Confirmed By: Papito Geiger
--- NOTE | 2024-04-20 10:47 | Hospitalist Progress Note ---
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 Follow up echo in one year for mild (3) Vertebral artery stenosis: Plan: CTA shows Severe multifocal stenoses within the right vertebral artery Admitting Discussed with [facility] neurology Dr. Jamal Powell who does not feel this is the cause of patient's near syncope, rather likely bradycardia is the culprit. No intervention recommended given unilateral stenosis Recommends ASA and statin (4) Hypothyroidism: Plan: TSH 3.191 DVT PROPHYLAXIS SCDs for now Discussed with family at bedside. Answered questions/queries. Time spent evaluating patient, direct bedside care, chart review, placing orders, interpretation of diagnostic studies, discussion with consultants, patient, and family members, as well as other required patient management activities is 50 minutes Please note the above document was generated using voice recognition software. It may contain grammatical, syntax or spelling errors. Any formal questions or concerns about the content, text or information contained within the body of this dictation should be directly addressed to the provider for clarification Admission and Anticipated Discharge Date Admission Date: April 19, 2024 Subjective Overnight, patient's heart rate decreased down to 30s without any pauses or heartblock. Other vitals signs are stable Family at bedside. Review of Systems Review of Systems: All systems reviewed & are unremarkable except as noted in Subjective Physical Exam Physical Exam: Constitutional: Alert oriented x 3; not in distress. Respiratory: normal respiratory effort, lungs clear to auscultation, no wheeze, rales, rhonchi. Normal insp/exp effort, no accessory muscle use Cardiovascular: RRR, no murmur, no edema Vessels: no JVD or carotid bruit Chest: normal inspection of chest Abdomen: normal bowel sounds, soft, nontender, no hepatosplenomegaly Musculoskeletal: no cyanosis or clubbing, extremities motor strength 5/5 Skin: no rashes, warm and dry normal turgor Neurologic: PERRL, EOMI, accommodation nl, no face palsy, no dysarthria CN's II- XI intact bilaterally and moves all extremities Psychiatric: A+Ox3, euthymic affect Results & Data Results & Data Vital Signs (Past 12 Hours) Vital Signs Temp Pulse Pulse Resp BP BP Pulse Ox 04/20/24 09:17 50 L 04/20/24 09:00 45 L 18 153/77 H 94 24 06:00 150/77 H 04/20/24 06:00 150/77 H 04/20/24 06:00 150/77 H 04/20/24 06:00 38 L 15 94 04/20/24 05:33 37 L 13 94 04/20/24 05:24 43 L 10 L 97 04/20/24 05:00 38 L 12 97 04/20/24 05:00 147/78 H 04/20/24 05:00 147/78 H 04/20/24 04:51 42 L 12 95 04/20/24 04:45 45 L 13 92 04/20/24 04:33 46 L 18 98 04/20/24 04:21 45 L 12 95 04/20/24 04:12 42 L 12 97 04/20/24 04:00 139/70 04/20/24 04:00 43 L 14 91 04/20/24 03:51 42 L 11 L 96 04/20/24 03:42 39 L 10 L 97 04/20/24 03:31 36.9 C 04/20/24 03:27 42 L 14 94 04/20/24 03:15 42 L 15 93 04/20/24 02:51 38 L 12 97 04/20/24 02:42 46 L 18 92 04/20/24 02:39 39 L 15 93 04/20/24 02:27 45 L 16 92 04/20/24 02:18 46 L 11 L 93 04/20/24 02:00 119/62 04/20/24 02:00 119/62 04/20/24 01:51 38 L 12 95 04/20/24 01:42 41 L 7 L 96 04/20/24 01:39 40 L 20 95 04/20/24 01:21 35 L 11 L 95 04/20/24 01:12 41 L 18 94 04/20/24 01:09 38 L 11 L 95 04/20/24 01:00 137/85 04/20/24 00:53 138/67 04/20/24 00:48 59 L 22 95 04/20/24 00:42 43 L 15 138/67 96 04/20/24 00:39 45 L 14 98 04/20/24 00:12 43 L 9 L 96 04/20/24 00:06 41 L 10 L 97 04/19/24 23:48 46 L 13 99 04/19/24 23:46 158/75 H 04/19/24 23:46 158/75 H 04/19/24 23:36 47 L 16 04/19/24 23:28 04/19/24 23:21 54 L 20 04/19/24 23:00 139/70 04/19/24 23:00 139/70 04/19/24 23:00 51 L 23 139/70 96 04/19/24 23:00 51 L 23 139/70 96 04/19/24 22:42 48 L 17 96 Pulse Ox O2 Del Method O2 Del Method 04/20/24 09:17 04/20/24 09:00 Room Air 04/20/24 06:00 04/20/24 06:00 04/20/24 06:00 04/20/24 06:00 04/20/24 05:33 04/20/24 05:24 04/20/24 05:00 04/20/24 05:00 04/20/24 05:00 04/20/24 04:51 04/20/24 04:45 04/20/24 04:33 04/20/24 04:21 04/20/24 04:12 04/20/24 04:00 04/20/24 04:00 04/20/24 03:51 04/20/24 03:42 04/20/24 03:31 04/20/24 03:27 04/20/24 03:15 04/20/24 02:51 04/20/24 02:42 04/20/24 02:39 04/20/24 02:27 04/20/24 02:18 04/20/24 02:00 04/20/24 02:00 04/20/24 01:51 04/20/24 01:42 04/20/24 01:39 04/20/24 01:21 04/20/24 01:12 04/20/24 01:09 04/20/24 01:00 04/20/24 00:53 04/20/24 00:48 04/20/24 00:42 04/20/24 00:39 04/20/24 00:12 04/20/24 00:06 04/19/24 23:48 04/19/24 23:46 04/19/24 23:46 04/19/24 23:36 04/19/24 23:28 96 Room Air 04/19/24 23:21 04/19/24 23:00 04/19/24 23:00 04/19/24 23:00 Room Air 04/19/24 23:00 Room Air 04/19/24 22:42 (3) Vertebral artery stenosis Laterality: right Qualified Code(s): I65.01 - Occlusion and stenosis of right vertebral artery
--- NOTE | 2024-04-20 13:13 | Pre Anesthesia Assessment ---
Date of Service April 20, 2024 Pre Sedation Assessment Vital Signs Temp Pulse Pulse Resp BP BP BP 04/20/24 12:42 47 L 17 167/90 H 04/20/24 12:12 51 L 22 04/20/24 12:01 139/66 04/20/24 12:01 139/66 04/20/24 11:51 43 L 15 04/20/24 11:30 46 L 14 04/20/24 11:03 44 L 13 04/20/24 11:00 151/90 H 04/20/24 11:00 151/90 H 04/20/24 11:00 151/90 H 04/20/24 09:17 50 L 04/20/24 09:00 45 L 18 153/77 H 04/20/24 06:00 150/77 H 04/20/24 06:00 150/77 H 04/20/24 06:00 150/77 H 04/20/24 06:00 38 L 15 04/20/24 05:33 37 L 13 04/20/24 05:24 43 L 10 L 04/20/24 05:00 38 L 12 04/20/24 05:00 147/78 H 04/20/24 05:00 147/78 H 04/20/24 04:51 42 L 12 04/20/24 04:45 45 L 13 04/20/24 04:33 46 L 18 04/20/24 04:21 45 L 12 04/20/24 04:12 42 L 12 04/20/24 04:00 139/70 04/20/24 04:00 43 L 14 04/20/24 03:51 42 L 11 L 04/20/24 03:42 39 L 10 L 04/20/24 03:31 36.9 C 04/20/24 03:27 42 L 14 04/20/24 03:15 42 L 15 04/20/24 02:51 38 L 12 04/20/24 02:42 46 L 18 04/20/24 02:39 39 L 15 04/20/24 02:27 45 L 16 04/20/24 02:18 46 L 11 L 04/20/24 02:00 119/62 04/20/24 02:00 119/62 04/20/24 01:51 38 L 12 04/20/24 01:42 41 L 7 L 04/20/24 01:39 40 L 20 04/20/24 01:21 35 L 11 L 04/20/24 01:12 41 L 18 04/20/24 01:09 38 L 11 L 04/20/24 01:00 137/85 04/20/24 00:53 138/67 04/20/24 00:48 59 L 22 04/20/24 00:42 43 L 15 138/67 04/20/24 00:39 45 L 14 04/20/24 00:12 43 L 9 L 04/20/24 00:06 41 L 10 L 04/19/24 23:48 46 L 13 04/19/24 23:46 158/75 H 04/19/24 23:46 158/75 H 04/19/24 23:36 47 L 16 04/19/24 23:28 04/19/24 23:21 54 L 20 04/19/24 23:00 139/70 04/19/24 23:00 139/70 04/19/24 23:00 51 L 23 139/70 04/19/24 23:00 51 L 23 139/70 04/19/24 22:42 48 L 17 04/19/24 22:25 53 L 18 161/78 H 04/19/24 21:40 49 L 04/19/24 21:00 52 L 16 142/78 H 04/19/24 20:04 47 L 21 186/85 H 04/19/24 18:57 57 L 18 179/75 H 04/19/24 18:50 43 L 18 04/19/24 17:44 45 L 04/19/24 17:41 04/19/24 17:40 43 L 14 188/77 H 04/19/24 14:39 36.8 C 45 L 20 187/96 H Pulse Ox Pulse Ox O2 Del Method O2 Del Method O2 Flow Rate 04/20/24 12:42 95 Room Air 04/20/24 12:12 95 Room Air 04/20/24 12:01 04/20/24 12:01 04/20/24 11:51 96 Room Air 04/20/24 11:30 94 Room Air 04/20/24 11:03 96 Room Air 04/20/24 11:00 04/20/24 11:00 04/20/24 11:00 04/20/24 09:17 04/20/24 09:00 94 Room Air 04/20/24 06:00 04/20/24 06:00 04/20/24 06:00 04/20/24 06:00 94 04/20/24 05:33 94 04/20/24 05:24 97 04/20/24 05:00 97 04/20/24 05:00 04/20/24 05:00 04/20/24 04:51 95 04/20/24 04:45 92 04/20/24 04:33 98 04/20/24 04:21 95 04/20/24 04:12 97 04/20/24 04:00 04/20/24 04:00 91 04/20/24 03:51 96 04/20/24 03:42 97 04/20/24 03:31 04/20/24 03:27 94 04/20/24 03:15 93 04/20/24 02:51 97 04/20/24 02:42 92 04/20/24 02:39 93 04/20/24 02:27 92 04/20/24 02:18 93 04/20/24 02:00 04/20/24 02:00 04/20/24 01:51 95 04/20/24 01:42 96 04/20/24 01:39 95 04/20/24 01:21 95 04/20/24 01:12 94 04/20/24 01:09 95 04/20/24 01:00 04/20/24 00:53 04/20/24 00:48 95 04/20/24 00:42 96 04/20/24 00:39 98 04/20/24 00:12 96 04/20/24 00:06 97 04/19/24 23:48 99 04/19/24 23:46 04/19/24 23:46 04/19/24 23:36 04/19/24 23:28 96 Room Air 04/19/24 23:21 04/19/24 23:00 04/19/24 23:00 04/19/24 23:00 96 Room Air 04/19/24 23:00 96 Room Air 04/19/24 22:42 96 04/19/24 22:25 94 Room Air 04/19/24 21:40 04/19/24 21:00 95 Room Air 04/19/24 20:04 99 Room Air 04/19/24 18:57 98 Room Air 04/19/24 18:50 98 Room Air 0 04/19/24 17:44 04/19/24 17:41 96 Room Air 0 04/19/24 17:40 95 Room Air 04/19/24 14:39 96 Room Air Cardiovascular + bradycardic Respiratory + respiratory effort normal Pre-Sedation Airway Assessment Smoking Status: Never smoker Hx Sleep Apnea: No Hx Difficult Intubation: No Short, Thick Neck: No Thyromental Distance: > or= 3.5 Finger Breadths Oral Cavity: + WNL Mallampati Class: II ASA: ASA2 NPO Status Date of Last Intake of Fluids: 04/20/24 Time of Last Intake of Fluids: 11:00 Date of Last Intake of Solid Food: 04/19/24 Time of Last Intake of Solid Foods: 20:00 Procedure Planning Contraindications for Sedation: none Current Medications Reviewed: Yes Notes The planned sedation has been discussed with the patient. Informed Consent was obtained. I have identified the patient, determined the appropriateness of sedation and have assessed the patient immediately prior to the procedure. All medicine(s) and interventions are by my order.
[2024-04-20] MEDS: LIDOCAINE 1% LOCAL 20 ML VIAL ONE (14:03)
[2024-04-20] MEDS: BUPIVACAINE 0.25% PF 30 ML VIAL ONE (14:03)
[2024-04-20] MEDS: WATER, STERILE FOR INJ 10 ML VIAL ONE (14:04)
[2024-04-20] MEDS: ceFAZolin 330 MG/ML 1 GM VIAL ONE (14:04)
[2024-04-20] MEDS: VANCOMYCIN HCL 1000MG/20ML VIAL ONE (14:04)
[2024-04-20] MEDS: fentaNYL citrate PF 100 MCG/2 ML VIAL ONE (14:52)
[2024-04-20] MEDS: MIDAZOLAM HCL 5 MG/ML 1 ML VIAL ONE (14:52)
[2024-04-20] MEDS ORDERED: oxyCODONE HCL IR 5 MG TAB (IMMEDIATE RELEASE) PO PRN (15:01)
--- NOTE | 2024-04-20 15:01 | Electrophysiology Report ---
Date of Service April 20, 2024 Electrophysiology Procedure Electrophysiology Procedure Report Procedure performed: Implantation of dual-chamber permanent pacemaker with left bundle pacing lead Staff machine repairer: Papito Geiger MD Indication: The patient is a 8-year-old gentleman who presented with symptoms of presyncope and bradycardia. He is felt to be a good candidate for permanent pacemaker due to symptomatic nonreversible sinus node dysfunction. Dual-chamber device was selected is currently in sinus rhythm and we wish to maintain AV synchrony. Procedure in detail: The patient was informed of the risks benefits and alternatives to the intended procedure and she wished to proceed. She was taken to the electrophysiology suite in a fasting state. A preoperative antibiotic had been administered. The patient was monitored electrocardiographically throughout today's procedure and conscious sedation was administered per protocol. The left upper pectoral area is prepped and draped in usual sterile fashion. This area was anesthetized using subcutaneous administration of a xylocaine solution. An incision was made at this site and carried down to the prepectoralis fascia using sharp dissection. Electrocautery was also employed for dissection as well as for hemostasis. A device pocket was fashioned tissues above the pectoralis muscle. Subsequent to this maneuver the left axillary vein was accessed using modified Seldinger technique. Sheath was placed over guidewire and used facilitate passage of the guiding catheter for mapping of the interventricular septum. Once appropriate area was identified a lead was advanced into the interventricular septum under fluoroscopic guidance. Adequate electrophysiologic characteristics were obtained prior to removal of the guiding catheter. The proximal portion lead was then sutured to prepectoralis fascia using nonabsorbable suture. A sheath was placed over the remaining guidewire and used facilitate passage of a pacing lead to the right atrium under fluoroscopic guidance. Adequate sensing threshold parameters were obtained prior to active fixation of this lead to the endocardial surface. The proximal portion lead was then sutured to prepectoralis fascia using nonabsorbable suture. The device pocket was irrigated with antibiotic solution. The leads were then attached to the device. The device and leads were then placed in the pocket and pocket was closed in 3 layers of absorbable suture. Steri-Strips and sterile dressing were applied. The device was tested noninvasively prior to conclusion the procedure. The patient tolerated procedure well there no immediate complications. Equipment used: New pulse generator: [employer]. Model number: [id number] serial number [id number] Right atrial lead: [employer] Medtronic. Model number: [id number] serial number [id number] Right ventricular lead: [employer] Medtronic. Model number: [id number] serial number [id number] Measured data: Right atrial lead: P-waves measured 2.8 mV. Pacing threshold was 1 volts at 0.4 milliseconds with a pacing impedance of 456 Ohms Right ventricular lead: R-waves measured greater than 20 mV. Pacing threshold was 0.5 volts at 0.4 milliseconds with a pacing impedance of 931 Ohms Impression: Successful implantation of dual-chamber permanent pacemaker with left bundle pacing lead [facility] Electrophysiology codes Pacing Procedure 1: Pacin Insert/Replace Pacer A & V PG Moderate Sedation Codes Moderate Sedation Codes Procedure 1: Sedation/Anesthesia: 12824 Mod Sedation by the same physician;Init15 Min Child Age 5 & Up Procedure 2: Sedation/Anesthesia: 72824 Mod Sedation by the same physician; Ea [id number] Minutes
--- NOTE | 2024-04-20 15:01 | Post Anesthesia Assessment ---
Date of Service April 20, 2024 Post Sedation Assessment Vital Signs Temp Pulse Pulse Resp BP BP BP 04/20/24 12:42 47 L 17 167/90 H 04/20/24 12:12 51 L 22 04/20/24 12:01 139/66 04/20/24 12:01 139/66 04/20/24 11:51 43 L 15 04/20/24 11:30 46 L 14 04/20/24 11:03 44 L 13 04/20/24 11:00 151/90 H 04/20/24 11:00 151/90 H 04/20/24 11:00 151/90 H 04/20/24 09:17 50 L 04/20/24 09:00 45 L 18 153/77 H 04/20/24 06:00 150/77 H 04/20/24 06:00 150/77 H 04/20/24 06:00 150/77 H 04/20/24 06:00 38 L 15 04/20/24 05:33 37 L 13 04/20/24 05:24 43 L 10 L 04/20/24 05:00 38 L 12 04/20/24 05:00 147/78 H 04/20/24 05:00 147/78 H 04/20/24 04:51 42 L 12 04/20/24 04:45 45 L 13 04/20/24 04:33 46 L 18 04/20/24 04:21 45 L 12 04/20/24 04:12 42 L 12 04/20/24 04:00 139/70 04/20/24 04:00 43 L 14 04/20/24 03:51 42 L 11 L 04/20/24 03:42 39 L 10 L 04/20/24 03:31 36.9 C 04/20/24 03:27 42 L 14 04/20/24 03:15 42 L 15 04/20/24 02:51 38 L 12 04/20/24 02:42 46 L 18 04/20/24 02:39 39 L 15 04/20/24 02:27 45 L 16 04/20/24 02:18 46 L 11 L 04/20/24 02:00 119/62 04/20/24 02:00 119/62 04/20/24 01:51 38 L 12 04/20/24 01:42 41 L 7 L 04/20/24 01:39 40 L 20 04/20/24 01:21 35 L 11 L 04/20/24 01:12 41 L 18 04/20/24 01:09 38 L 11 L 04/20/24 01:00 137/85 04/20/24 00:53 138/67 04/20/24 00:48 59 L 22 04/20/24 00:42 43 L 15 138/67 04/20/24 00:39 45 L 14 04/20/24 00:12 43 L 9 L 04/20/24 00:06 41 L 10 L 04/19/24 23:48 46 L 13 04/19/24 23:46 158/75 H 04/19/24 23:46 158/75 H 04/19/24 23:36 47 L 16 04/19/24 23:28 04/19/24 23:21 54 L 20 04/19/24 23:00 139/70 04/19/24 23:00 139/70 04/19/24 23:00 51 L 23 139/70 04/19/24 23:00 51 L 23 139/70 04/19/24 22:42 48 L 17 04/19/24 22:25 53 L 18 161/78 H 04/19/24 21:40 49 L 04/19/24 21:00 52 L 16 142/78 H 04/19/24 20:04 47 L 21 186/85 H 04/19/24 18:57 57 L 18 179/75 H 04/19/24 18:50 43 L 18 04/19/24 17:44 45 L 04/19/24 17:41 04/19/24 17:40 43 L 14 188/77 H Pulse Ox Pulse Ox O2 Del Method O2 Del Method O2 Flow Rate 04/20/24 12:42 95 Room Air 04/20/24 12:12 95 Room Air 04/20/24 12:01 04/20/24 12:01 04/20/24 11:51 96 Room Air 04/20/24 11:30 94 Room Air 04/20/24 11:03 96 Room Air 04/20/24 11:00 04/20/24 11:00 04/20/24 11:00 04/20/24 09:17 04/20/24 09:00 94 Room Air 04/20/24 06:00 04/20/24 06:00 04/20/24 06:00 04/20/24 06:00 94 04/20/24 05:33 94 04/20/24 05:24 97 04/20/24 05:00 97 04/20/24 05:00 04/20/24 05:00 04/20/24 04:51 95 04/20/24 04:45 92 04/20/24 04:33 98 04/20/24 04:21 95 04/20/24 04:12 97 04/20/24 04:00 04/20/24 04:00 91 04/20/24 03:51 96 04/20/24 03:42 97 04/20/24 03:31 04/20/24 03:27 94 04/20/24 03:15 93 04/20/24 02:51 97 04/20/24 02:42 92 04/20/24 02:39 93 04/20/24 02:27 92 04/20/24 02:18 93 04/20/24 02:00 04/20/24 02:00 04/20/24 01:51 95 04/20/24 01:42 96 04/20/24 01:39 95 04/20/24 01:21 95 04/20/24 01:12 94 04/20/24 01:09 95 04/20/24 01:00 04/20/24 00:53 04/20/24 00:48 95 04/20/24 00:42 96 04/20/24 00:39 98 04/20/24 00:12 96 04/20/24 00:06 97 04/19/24 23:48 99 04/19/24 23:46 04/19/24 23:46 04/19/24 23:36 04/19/24 23:28 96 Room Air 04/19/24 23:21 04/19/24 23:00 04/19/24 23:00 04/19/24 23:00 96 Room Air 04/19/24 23:00 96 Room Air 04/19/24 22:42 96 04/19/24 22:25 94 Room Air 04/19/24 21:40 04/19/24 21:00 95 Room Air 04/19/24 20:04 99 Room Air 04/19/24 18:57 98 Room Air 04/19/24 18:50 98 Room Air 0 04/19/24 17:44 04/19/24 17:41 96 Room Air 0 04/19/24 17:40 95 Room Air Recovery Score Activity: Moves 4 extremities Respiration: Deep Breath/Cough Circulation: +/-20% PreAnes Value Consciousness: Fully Awake Oxygen Saturation: > 92% On Room Air Discharge Sedation Level of Care: Fast Track Phase II Post Sedation Plan On clinical assessment, the patient appears to have tolerated the sedation without complications. Patient is recovering as anticipated. Patient will continue to be monitored by nursing and may be discharged when sedation discharge criteria are met per below protocol. Upon Completions of procedure up to 15 minutes continue every 5 minute vital signs and the P.A.R. score; then discharge to a Phase I or Fast Track to Phase II per the following guidelines: * Discharge Patient to appropriate Phase II area if PAR is 8 or greater or return to pre- procedure baseline. The post - procedure orders will be as directed. * If PAR score is less than 8 or not return to pre-procedure baseline then patient will follow Phase I monitoring till PAR is reached for Phase II. The Phase I may be done in procedure room or may call to secure a Phase I area. * If naloxone or flumazenil are used for reversal, hold in Phase I for continued monitoring from when last reversal dose was given for a minimum of 60 minutes or longer pending the nurse and/or physician discretion of patient condition before discharge to Phase II. Please call the Sedation Physician to re-evaluate and complete post-note for discharge to Phase II area. Do NOT discharge from procedure sedation or Phase 1 until post- sedation evaluation note is complete by procedure /sedation MD Sedation Discharge Instructions to be given to the patient at discharge to home.
[2024-04-20] MEDS: ceFAZolin 1000MG 1,000 MG/7.5 ML SYR IV ONE (21:08)
[2024-04-20] MEDS: ACETAMINOPHEN 325 MG TAB PO PRN (23:47)
[2024-04-21 06:16] LABS: Basophils # (auto) 0.03 K/uL (0.00-0.20); Basophils % (auto) 0.4 %; Eosinophils # (auto) 0.25 K/uL (0.00-0.50); Eosinophils % (auto) 3.2 %; Hematocrit (blood only) 43.8 % (42.0-52.0); Hemoglobin 15.2 g/dl (14.0-18.0); Immature Granulocytes # (auto) 0.01 K/uL (0.01-0.20); Immature Granulocytes % (auto) 0.1 %; Lymphocytes # (auto) 1.63 K/uL (1.20-3.40); Mean Corpuscular Hemoglobin 30.3 pg (25.0-34.0); Mean Corpuscular Hgb Conc 34.7 g/dL (32.0-36.0); Mean Corpuscular Volume 87.3 fL (80.0-100.0); Mean Platelet Volume 10.1 fL (9.4-12.4); Monocytes % (auto) 11.6 %; Neutrophils # (auto) 4.96 K/uL (1.40-6.50); Neutrophils % (auto) 63.7 %; Platelet Count 155 K/uL (130-400); RDW Coefficient of Variation 12.8 % (11.5-14.5); RDW Standard Deviation 40.4 fL (36.4-46.3); Red Blood Count 5.02 M/uL (4.70-6.10); White Blood Count 7.78 K/ul (4.8-10.8)
[2024-04-21 06:31] LABS: Anion Gap 5 (3-11); Blood Urea Nitrogen 22 mg/dl (6-23); Calcium 8.9 mg/dl (8.6-10.3); Carbon Dioxide 24 mmol/L (21-32); Chloride 106 mmol/L (98-107); Creatinine Clr Calc Pharmacy 27.9 ml/min; Est GFR (African American) 45.3 ml/min; Est GFR (Non-African American) 39.1 ml/min; Glucose 96 mg/dl (70-99(Fasting)); Sodium 135 mmol/L (136-145)
[2024-04-21 07:53] VITALS: RESP 18
--- NOTE | 2024-04-21 08:43 | Electrocardiogram Report ---
Test Reason : Blood Pressure : */* mmHG Vent. Rate : 60 BPM Atrial Rate : 60 BPM P-R Int : 234 ms QRS Dur : 136 ms QT Int : 466 ms P-R-T Axes : 7 45 -35 degrees QTcB Int : 466 ms Atrial-paced rhythm with prolonged AV conduction Right bundle branch block T wave abnormality, consider inferior ischemia Abnormal ECG When compared with ECG of 20-Apr-2024 06:05, (unconfirmed) Electronic atrial pacemaker has replaced Sinus rhythm Right bundle branch block is now Present Confirmed by Papito Geiger ([id number]) on 04/21/2024 8:42:55 AM Referred By: Sweta Waters Confirmed By: Papito Geiger
--- NOTE | 2024-04-21 09:01 | Electrocardiogram Report ---
Test Reason : Blood Pressure : */* mmHG Vent. Rate : 60 BPM Atrial Rate : 60 BPM P-R Int : 246 ms QRS Dur : 84 ms QT Int : 428 ms P-R-T Axes : * -11 69 degrees QTcB Int : 428 ms Atrial-paced rhythm with prolonged AV conduction Poor R wave progression, consider anterior MT vs. lead placement vs. LVH Abnormal ECG When compared with ECG of 20-Apr-2024 15:09, (unconfirmed) Right bundle branch block is no longer Present Confirmed by Papito Geiger ([id number]) on 04/21/2024 9:00:52 AM Referred By: Sweta Waters Confirmed By: Papito Geiger
--- NOTE | 2024-04-21 10:14 | XRay Report ---
XR chest 2V PA/lateral CLINICAL HISTORY: Pacemaker insertion. COMPARISON STUDY: Chest CT January 19, 2009. Chest radiograph April 19, 2024. FINDINGS: There is no pneumothorax following placement of a dual lead left subclavian pacer. Lead tip s project over the right atrial appendage and right ventricle. There is no pleural effusion. There is no evidence for pulmonary edema. Cardiomediastinal silhouette is stable. Postoperative findings with in the cervical spine are incidentally noted. IMPRESSION: No pneumothorax following placement of a dual-lead left subclavian pacemaker. ACT 112: Negative or not required by law. Electronically signed by: Jimmy Mcdaniel M.D. 04/21/2024 10:13 AM
--- NOTE | 2024-04-21 10:34 | Cardiology Progress Note ---
Date of Service April 21, 2024 Assessment & Plan (1) Symptomatic bradycardia: Plan 1. Symptomatic bradycardia: Status post implantation of dual-chamber Medtronic pacemaker. No evident complication. Good function of the device with primarily atrial pacing. Patient appears to be stable for discharge from the standpoint. I would recommend given wound dry and Steri-Strips intact until follow-up in 5-7 days. No lifting left arm above the shoulder behind the neck for 6 weeks. Admission and Anticipated Discharge Date Admission Date: April 19, 2024 Subjective This morning patient claimed he feeling well. At some minor arm discomfort that was transient last evening. No pain at the implant site. Physical Exam Physical Exam: Patient is alert and oriented. Answered all questions appropriately. Normal respiratory effort Well-healed device implant site without significant hematoma, ecchymosis or drainage Results & Data Vital Signs (Past 12 Hours) Vital Signs Temp Pulse Pulse Pulse Resp BP Pulse Ox 04/21/24 07:53 36.5 C 63 18 153/85 H 96 04/21/24 07:37 60 04/21/24 03:08 36.9 C 59 L 16 157/86 H 96 04/21/24 02:17 72 04/20/24 23:29 36.6 C 60 17 157/84 H 97 O2 Del Method 04/21/24 07:53 Room Air 04/21/24 07:37 04/21/24 03:08 Room Air 04/21/24 02:17 04/20/24 23:29 Room Air Diagnostic Findings Chest x-ray demonstrated stable lead position without pneumothorax Device interrogation reveals good function of both atrial ventricular leads
--- NOTE | 2024-04-21 10:43 | Cardiology Progress Note ---
Date of Service April 21, 2024 Assessment & Plan (1) Symptomatic bradycardia: Plan: Patient presents with 2 near syncopal episodes while driving, with 5 episodes noted otherwise over the last 2 weeks. Initial EKG revealed marked sinus bradycardia with rate of 41 bpm. Patient underwent implantation of dual-chamber Medtronic permanent pacemaker on 04/20/[address] Geiger with left bundle lead. Device interrogation today reveals normal device function. Chest x-ray performed today, image reviewed independently, with appropriate lead placement, no pneumothorax. (2) Vertebral artery stenosis: Plan: He CT angiogram of the head and neck vessels revealed patent bilateral common carotid and internal carotid arteries with mild plaque within the proximal bilateral internal carotid arteries without stenosis. There is severe multifocal stenosis within the right vertebral artery noted. LDL cholesterol 104 mg/dL. Recommend discharge on atorvastatin which has been prescribed. (3) Mild aortic stenosis: Plan: Borderline to mild aortic stenosis noted on echocardiogram. Repeat echo as outpatient in one year. Plan Disposition: Patient stable from cardiology perspective for discharge. Care coordinated with Dr. Geiger. Patient has appointment for wound check [facility] 11:00 Am, [facility] Post pacer care instructions already added to pt's discharge document by Dr Geiger. Admission and Anticipated Discharge Date Admission Date: April 19, 2024 Subjective Patient seen in cardiology follow up. No complaints. Tolerated dual-chamber pacemaker well yesterday. Telemetry of feels atrial paced rhythm in the 60s. Physical Exam Constitutional: WD/WN, vitals as above Respiratory: normal respiratory effort, lungs clear to auscultation Cardiovascular: Rate/Rhythm: regular rate and + bradycardic Heart Sounds: normal S1 and normal S2; no murmur Vessels: no JVD Extremities: no edema Gastrointestinal (Abdomen): normal bowel sounds, soft, nontender, no hepatosplenomegaly Neurologic: PERRL, EOMI, accommodation nl, no face palsy, no dysarthria Results & Data Vital Signs (Past 12 Hours) Vital Signs Temp Pulse Pulse Pulse Resp BP Pulse Ox 04/21/24 07:53 36.5 C 63 18 153/85 H 96 04/21/24 07:37 60 04/21/24 03:08 36.9 C 59 L 16 157/86 H 96 08/07/24 02:17 72 04/20/24 23:29 36.6 C 60 17 157/84 H 97 O2 Del Method 04/21/24 07:53 Room Air 04/21/24 07:37 04/21/24 03:08 Room Air 04/21/24 02:17 04/20/24 23:29 Room Air Laboratory Results CBC 04/21/24 Range/Units 05:44 WBC 7.78 (4.8-10.8) K/ul RBC 5.02 (4.70-6.10) M/uL Hgb 15.2 (14.0-18.0) g/dl Hct 43.8 (42.0-52.0) % Plt Count 155 (130-400) K/uL Neut # (Auto) 4.96 (1.40-6.50) K/uL Lymph # (Auto) 1.63 (1.20-3.40) K/uL [place] # (Auto) 0.90 H (0.11-0.59) K/uL Eos # (Auto) 0.25 (0.00-0.50) K/uL Baso # (Auto) 0.03 (0.00-0.20) K/uL Comprehensive Metabolic Panel 04/21/24 04/21/24 Range/Units 05:44 06:36 Sodium 135 L (136-145) mmol/L Potassium TNP 4.5 Chloride 106 (98-107) mmol/L Carbon Dioxide 24 (21-32) mmol/L BUN 22 (6-23) mg/dl Creatinine 1.57 H (0.6-1.4) mg/dl Glucose 96 (70-99(Fasting)) mg/dl Calcium 8.9 (8.6-10.3) mg/dl Intake and Output 04/20/24 04/21/24 04/21/24 22:59 06:59 14:59 Intake Total 300 / 500 200 / 500 Output Total 250 / 250 Balance 50 / 250 200 / 250 Intake: Oral 300 / 500 200 / 500 Output: Urine 250 / 250 Other: # Unmeasured Voids 2 (2) Vertebral artery stenosis Laterality: right Qualified Code(s): I65.01 - Occlusion and stenosis of right vertebral artery
[2024-04-21 11:25] VITALS: BP 133/78; PULSE 60; TEMP 98.2; O2SAT 94
--- NOTE | 2024-04-21 13:27 | Discharge Summary ---
Date of Service April 21, 2024 Admission HPI Per Admitting Provider 88-year-old male with PMH hypothyroidism, GERD, CKD stage III, history of cervical spinal fusion, and other problems listed below who presents to the ED for evaluation of a lightheadedness. History is obtained from the patient and review of outpatient PCP records. Patient states that he was driving his car today down the highway when he started to feel lightheaded as though he was going to pass out. Patient states symptoms resolved and he started to feel improved and continued on his way. About 15 minutes later, he started to feel lightheaded again. He states that he started to drive on the berm of the road. He did eventually come to a stop however decided to start driving again. Patient did make it safely to his son's home. He states that he did not have any further episodes of lightheadedness however did not feel himself and felt "foggy". patient was evaluated at his PCPs office and was found to be bradycardic and referred to the ED for further evaluation. Patient states that he would have episodes of lightheadedness in the past however notices an increased frequency over the past 2 weeks. Notes that they are typically followed by standing. Patient states that he is very active and spends a lot of time outside in his garden. States that he was treated for Lyme disease in December. Patient denies chest pain and palpitations. No other recent illnesses, fevers, chills. He denies abdominal pain, nausea, vomiting, diarrhea. No urinary symptoms. In the ED, EKG shows sinus bradycardia with rate of 46. Telemetry review shows the patient had episodes of bradycardia in the low 30s. He seems to have not been symptomatic with these episodes. Head CT was unremarkable for acute findings. Head and neck CTA shows Severe multifocal stenoses within the right vertebral artery. Admission Exam Per Admitting Provider Constitutional: WD/WN, vitals as above no acute distress Eyes: PERRL, conjunctivae normal, anicteric sclerae ENMT: external ear and nose normal, oropharynx normal Respiratory: normal respiratory effort, lungs clear to auscultation Cardiovascular: Rate/Rhythm: regular rhythm and + bradycardic Vessels: normal peripheral pulses Extremities: no edema Gastrointestinal (Abdomen): normal bowel sounds, soft, nontender, no hepatosplenomegaly Musculoskeletal: no cyanosis or clubbing, extremities motor strength 5/5 Skin: no rashes, warm and dry Neurologic: PERRL, EOMI, accommodation nl, no face palsy, no dysarthria Psychiatric: A+Ox3, euthymic affect Principal Diagnosis Symptomatic bradycardia Vertebral artery stenosis Discharge Exam Constitutional: Alert oriented x 3; not in distress. Respiratory: normal respiratory effort, lungs clear to auscultation, no wheeze, rales, rhonchi. Normal insp/exp effort, no accessory muscle use Cardiovascular: RRR, no murmur, no edema Vessels: no JVD or carotid bruit Left upper chest w/ clean dressing wo soakage. Abdomen: normal bowel sounds, soft, nontender, no hepatosplenomegaly Musculoskeletal: no cyanosis or clubbing, extremities motor strength 5/5 Skin: no rashes, warm and dry normal turgor Neurologic: PERRL, EOMI, accommodation nl, no face palsy, no dysarthria CN's II- XI intact bilaterally and moves all extremities Psychiatric: A+Ox3, euthymic affect Discharge Data Allergies Allergy/AdvReac Type Severity Reaction Status Date / Time Horse/Equine Containing Allergy Intermediate FROM HORSE Verified 02/18/24 01:45 Products SERUM TETANUS pollen extracts Allergy Intermediate HAYFEVER Verified 02/18/24 01:46 SYMPTOMS tetanus toxoid, adsorbed Allergy Intermediate BURNING Verified 02/18/24 01:45 SENSATION ALL OVER BODY - "ALMOST WENT UNCONSCIOUS" Sulfa (Sulfonamide AdvReac Severe "ENDED UP Verified 02/18/24 01:45 Antibiotics) WITH HEPATITIS AFTER TAKING MED" Consultations 04/19/24 19:03 ED Decision to Admit Stat 04/19/24 21:25 Consult Cardiology Routine Procedures Performed Operation Date: 04/20/24 13:00 Actual Procedures p Pacer with A/V Leads (Dual) - Papito Geiger MD Ordered Studies 04/19/24 14:44 CT head/brain wo con Stat 04/19/24 16:33 CT angio head w con Stat CT angio neck with con Stat 04/20/24 09:45 EP Lab Images for PACS ONCE Hospital Course (1) Syncope: (2) Symptomatic bradycardia: Per prior attending with addendum: Sick Sinus Syndrome Patient presents with multiple episodes of syncope and presyncope EKG on admission shows marked sinus bradycardia with rate of 41 bpm Telemetry also shows heart rate around 30s while sleeping TSH wnl Lyme Screen neg Echocardiogram shows EF of 55 to 60% with mild concentric LVH.Mild aortic stenosis present Patient plan for dual-chamber pacemaker by 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 Follow up echo in one year for mild (3) Vertebral artery stenosis: CTA shows Severe multifocal stenoses within the right vertebral artery Admitting Discussed with [facility] neurology Dr. Jamal Powell who does not feel this is the cause of patient's near syncope, rather likely bradycardia is the culprit. No intervention recommended given unilateral stenosis Recommends ASA and statin (4) Hypothyroidism: TSH 3.191 DVT PROPHYLAXIS SCDs for now Discussed with family at bedside. Answered questions/queries. Time spent evaluating patient, direct bedside care, chart review, placing orders, interpretation of diagnostic studies, discussion with consultants, patient, and family members, as well as other required patient management activities is 50 minutes Please note the above document was generated using voice recognition software. It may contain grammatical, syntax or spelling errors. Any formal questions or concerns about the content, text or information contained within the body of this dictation should be directly addressed to the provider for clarification Plan Addendum 04/21/2024: Patient was seen and examined at bedside as a follow-up of symptomatic bradycardia status post dual-chamber permanent pacemaker on 04/20/[address] Geiger. Patient is doing well. Patient reports he is moving around independently and does not want PT/OT evaluation. Patient denies any chest pain or headache or dizziness. Patient is hemodynamically stable and would like to go home. Patient has been made aware of vertebral artery stenosis finding in this admission's CT scan, patient has been started on aspirin and statin. He is being discharged with following instructions at the point of discharge: Follow-up with your primary care physician within a week time and likely you will need labs CBC/CMP/magnesium/phosphorus. Follow-up with cardiology office in 5 to 7 days time upon discharge for wound check. No lifting left arm above the shoulder behind the neck for 6 weeks. Take your medications as prescribed. Please make sure that you are able to get your medications today by calling your pharmacy before you leave the hospital so that your treatment continuity is not broken. [facility] Attestation I certify that this patient is under my care and that I, or a physicians real estate assistant working with me, had a face to-face encounter that meets the home health [id number] encounter requirements with this patient. The encounter with the patient was in whole, or in part, for the following medical condition, which is the primary reason for home health care (list medical condition): I certify that, based on my findings, the following services are medically necessary home health services: My clinical findings support the need for the above services because: Further, I certify that my clinical findings support that this patient is homebound (i.e. absences from home require considerable and taxing effort and are for medical reasons or oriental orthodox services or infrequently or of short duration when for other reasons) because: Certification for Home Health Services: Based on the above findings, I certify that this patient is confined to the home and needs intermittent group home care, physical therapy and/or speech therapy or continues to need occupational therapy. The patient is under my care, and I have initiated the establishment of the plan of care. This patient will be followed by a physician who will periodically review the plan of care. Total Time Total Time Spent Total Time Spent (In Minutes): 45 Discharge Plan Discharge Items Patient Disposition: Home - Self-Care Reason For Visit: SYMPTOMATIC BRADYCARDIA Discharge Diagnosis: Symptomatic bradycardia Vertebral artery stenosis Activity: Per Instructions section Activity Comment: No lifting left arm above shoulder behind neck for 6 weeks Bathing: Keep incision dry Bathing Comment: Keep wound dry and Steri-Strips intact until follow-up next week Non-emergency contact: Primary Care Provider Call non-emergency contact if: you have any medication questions Follow-up/Referrals: [facility] [Other] (Date & Time 04/29/2024 11:00 AM Pacer Clinic [facility] Cardiology, [facility] ) Sweta Waters DO [Primary Care Provider] - (Date & Time 04/30/2024 10:00 AM Provider Sweta Waters DO Department Family Practice [address] [place] [address] ) Diet: Heart Healthy Angelica Attending Provider Instructions: Wound check / pacemaker appointment: 04/29/2024 11:00 AM , Pacer Clinic [facility] Cardiology, [facility] Angelica Supervisor [employer] Provider Instructions: Follow-up with your primary care physician within a week time and likely you will need labs CBC/CMP/magnesium/phosphorus. Follow-up with cardiology office in 5 to 7 days time upon discharge for wound check. No lifting left arm above the shoulder behind the neck for 6 weeks. Take your medications as prescribed. Please make sure that you are able to get your medications today by calling your pharmacy before you leave the hospital so that your treatment continuity is not broken. Pending Studies at Discharge: No Stand-Alone Forms: My [facility], Smoking Cessation Medications and DC Order Prescriptions: New atorvastatin 20 mg Tablet 20 mg PO QAM Qty: 30 0RF aspirin 81 mg Tablet,Delayed Release (Dr/Ec) 81 mg PO QAM Qty: 30 0RF Continued diphenhydramine HCl 25 mg Tablet 25 mg PO TID PRN (Reason: Allergy Symptoms) levothyroxine 100 mcg Capsule 100 mcg PO DAILYBB Discharge Orders: Discharge Order (Routine); Ordered 04/21/24 Ordered By: Joaquin Morales/Other Patient Handouts: Pacemaker Implant Dc Admission Data Admit Date/Time: 04/19/24 19:55 Attending Provider: Joaquin Chavez Admit Provider: Keith Oneill Primary Care Provider: Sweta Waters Other Providers: Anaid Hernandez; [facility] Shepherd Other Interventions: Discharge Summary Assessment (RN) Last Done: 04/21/24 13:18
--- NOTE | 2024-04-21 15:34 | Electrocardiogram Report ---
Test Reason : Blood Pressure : */* mmHG Vent. Rate : 45 BPM Atrial Rate : 45 BPM P-R Int : 206 ms QRS Dur : 78 ms QT Int : 472 ms P-R-T Axes : 57 0 64 degrees QTcB Int : 408 ms Sinus bradycardia Poor R wave progression, consider anterior MS vs. lead placement vs. LVH Abnormal ECG When compared with ECG of 19-Apr-2024 17:59, No significant change was found Confirmed by Papito Geiger ([id number]) on 04/21/2024 3:33:50 PM Referred By: Sweta Waters Confirmed By: Papito Geiger
--- NOTE | 2024-04-23 08:05 | Coding Query ---
CODING QUERY To promote full compliance with coding requirements relating to patient care, provider participation is requested in all cases of freelance web designer uncertainty. Please assist us with the question(s) below: Coding Question(s): Can you please confirm the laterality of the patient's ventricular lead? Right ( x ) Left ( ) Physician's Response(s): Thank you Shaunna Smith Principal Diagnosis: "that condition established after study, to be chiefly responsible for occasioning the admission of the patient to the hospital for care." Co-Existing Principal Diagnosis: "when two or more diagnoses equally meet the criteria for principal diagnosis as determined by the circumstances of admission, diagnostic work up, and/or therapy provided, and the Alphabetic Index, Tabular List, or another coding guideline does not provide sequencing direction, any one of the diagnoses may be sequenced first." "When the physician has documented what appears to be a current diagnosis in the body of the record, but has not included the diagnosis in the final diagnostic statement, the physician should be asked whether the diagnosis should be added." (Source Coding Clinic 2 QTR90. p3-4) SP
== END 2024-04-21 13:55 | disposition home or self-care (01) | DRG 244 ==
LOC: ED 14:31 → SUATTDRO 19:55 → EDINP 19:55 → 2E 04-20 15:35

== ENCOUNTER 2024-05-27 19:15 | Inpatient (IN) ==
[2024-05-27 19:56] LABS: Basophils # (auto) 0.06 K/uL (0.00-0.20); Basophils % (auto) 0.6 %; Eosinophils # (auto) 0.52 K/uL (0.00-0.50); Eosinophils % (auto) 5.3 %; Hematocrit (blood only) 41.3 % (42.0-52.0); Hemoglobin 14.2 g/dl (14.0-18.0); Immature Granulocytes # (auto) 0.03 K/uL (0.01-0.20); Immature Granulocytes % (auto) 0.3 %; Lymphocytes # (auto) 2.53 K/uL (1.20-3.40); Mean Corpuscular Hemoglobin 30.5 pg (25.0-34.0); Mean Corpuscular Hgb Conc 34.4 g/dL (32.0-36.0); Mean Corpuscular Volume 88.8 fL (80.0-100.0); Mean Platelet Volume 9.9 fL (9.4-12.4); Monocytes # (auto) 1.12 K/uL (0.11-0.59); Monocytes % (auto) 11.5 %; Neutrophils # (auto) 5.46 K/uL (1.40-6.50); Neutrophils % (auto) 56.3 %; Platelet Count 166 K/uL (130-400); RDW Coefficient of Variation 13.1 % (11.5-14.5); RDW Standard Deviation 42.9 fL (36.4-46.3); Red Blood Count 4.65 M/uL (4.70-6.10); White Blood Count 9.72 K/ul (4.8-10.8)
[2024-05-27 20:10] LABS: Albumin Globulin Ratio 1.4 (0.9-2); Albumin Level 4.4 gm/dl (3.4-5.0); BUN Creatinine Ratio 17.6 (10-20); Bilirubin,Total 0.6 mg/dl (0.2-1.0); Calcium 9.7 mg/dl (8.6-10.3); Creatinine Clr Calc Pharmacy 38.4 ml/min; Est GFR (African American) 56.3 ml/min; Est GFR (Non-African American) 48.6 ml/min; Globulin 3.1 gm/dl (2.5-4.0); Potassium 4.3 mmol/L (3.5-5.1); Total Protein 7.5 gm/dl (6.0-8.3)
[2024-05-27 20:16] LABS: Troponin I High Sensitivity 6.7 pg/ml (0-20)
[2024-05-27 20:23] LABS: INR 0.9 (0.9-1.1); Partial Thromboplastin Time 28 Seconds (21-31); Prothrombin Time 10.3 Seconds (9.0-12.0)
--- NOTE | 2024-05-27 20:26 | Emergency Department Note ---
Impression & Plan Acute subclavian vein thrombosis ED Provider Note Provider: Allan Davenport MD DATE OF SERVICE: 05/27/2024 CHIEF COMPLAINT: Left arm swelling, abnormal ultrasound HISTORY OF PRESENT ILLNESS: Patient is a 88-year-old gentleman history of symptomatic bradycardia status post pacemaker placement April 20 here, mild aortic stenosis, hypothyroidism presenting here today referred due to abnormal ultrasound of the outpatient setting. States yesterday started noticed a bit of swelling of his left arm. No pain. Worsened swelling today. Talked with his doctor's office and seen there and ordered an outpatient ultrasound. Referred from ultrasound here today as there is extensive DVT noted in the left venous system. Patient denies significant chest pain or shortness of breath. No significant swelling or wound to the left pacemaker site is noted. Denies recent travel or leg swelling. Denies numbness in the left arm but it is swollen a little bit red. No recent IVs or other procedures on the arm. No history of clotting reported. PAST MEDICAL HISTORY: As noted above MEDICATIONS: Reviewed home medications include 81 mg aspirin SOCIAL HISTORY: PHYSICAL EXAM: GENERAL: alert and oriented in no acute distress on stretcher Head: normocephalic and atraumatic EYES: No injection, discharge or icterus. NECK: Trachea midline. ENT: Mucous membranes pink and moist. LUNGS: Airway patent. No retractions. Breath sounds clear with good air entry bilaterally. HEART: Regular rate and rhythm. No chest wall tenderness without well-healed left upper subcutaneous pacemaker appreciable. ABDOMEN: Soft and non-tender, without guarding or rebound. SKIN: Acyanotic, warm, dry left arm as below EXTREMITIES: Without swelling, tenderness or deformity except for the left upper extremity which has some 1-2+ edema of the left arm extending from the shoulder to the distal fingers with some very slight erythema. 2+ left radial pulse with soft compartments of the left forearm appreciable. NEUROLOGICAL: No focal deficits. No aphasia. No facial droop or slurred speech. Ambulatory. EK bpm atrially paced rhythm without PVC or PAC. No acute ST segment elevation or depression with QTc of 406. CONTINUOUS CARDIAC MONITORING: was ordered and showed a heart rate of 60 bpm in atrially paced rhythm 1 view chest x-ray per my interpretation: No evidence of pneumothorax or pneumonia. No significant pulmonary edema or pleural effusion. No significant cardiomegaly. Pacemaker leads appear intact. Patient's laboratory studies and imaging reviewed. Differential includes DVT, musculoskeletal, infection, joint effusion, trauma, lymphedema, idiopathic, CHF, PE, ACS, mass, as well as other pathologies. IMPRESSION/MEDICAL DECISION MAKING: Patient well-appearing in no distress. Vitals reassuring. On aspirin but no other blood thinners. Atraumatic swelling left arm. No clinical evidence of compartment syndrome. Has pulse and intact sensation to left hand. Seen in the outpatient setting and sent for ultrasound and ultrasound report for some here. Did have a dual-chamber pacemaker placed via left axillary vein 37 days ago here. This likely is provoking the thrombus in the left subclavian vein extending to the axillary vein and proximal cephalic vein occlusive to nearly occlusive with minimal flow. Basic blood work here reassuring he does not have any infectious symptoms. No significant anemia or platelet abnormality. No significant lecture light abnormal signs or significant renal dysfunction, or troponin elevation. The leads from the pacemaker likely provoking the DVT. Did reach out discussed with Dr. Snyder from cardiology as the patient follows with [facility]. Will start the patient on a heparin drip. Will bring into the hospital for further care given his age and the large extent of the thrombus. Will try some compression elevation as well in discussion with cardiology. Hospitalist contacted for observation. DIAGNOSIS: Left upper extremity DVT, history of pacemaker placement DISPOSITION: Hospitalist will evaluate Patient was agreeable with this plan. Past Med/Surg History Problem List (Updated 05/27/24 @ 20:37 by Allan Davenport M.D.) Acute subclavian vein thrombosis (Acute) Syncope Mild aortic stenosis Vertebral artery stenosis (Acute) Symptomatic bradycardia (Acute) Medical History Recurrent right inguinal hernia [place] (hard of hearing) History of bradycardia per "always naturally has a very low pulse rate" Hx MRSA infection ~2008, hospitalized 7 [place] the [place] in [facility], leg wound>treated Hx of urinary frequency Hypothyroidism History of diverticulitis Chronic kidney disease stage 3, possibly 4 per ; f/u PCP Cervical vertebral fusion ~2006 or 2007, per "very top of neck area, also removed 8 bone fragments from his neck">ROM is limited Anemia stated "she never knew about this, doesn't think this is correct" Blood pressure elevated without history of HTN per , recently blood pressure "has been good, never medicated for this" Erectile dysfunction Personal history of pneumonia (recurrent) ~2013, thinks he only had it once, not hosp; no residual symptoms Surgical History Hx of colonoscopy Hx of oral surgery oral implants placed Hx of bilateral cataract extraction H/O: vasectomy H/O inguinal hernia repair x2, right side Family History Mother Glaucoma Denies family history of Ovarian cancer Prostate cancer Myocardial infarction Breast cancer Colorectal cancer Social History Smoking Status: Never smoker Second Hand Exposure: No; Do You Dip or Chew Tobacco: No; Hx Alcohol Use: No Hx Substance Use: No Preferred Language: Turkmen Communication Ability: Effective Criminal Investigator Required: No Beliefs That Will Affect Care: None marital status: Current Living Situation: Family Current Living Situation Comment: with and daughter current occupational status: retired Feels Safe at Home: Yes Childhood Exposure to Second-Hand Smoke: No Physical Activity Frequency: Daily Assistive Devices: None Allergies Allergies Allergy/AdvReac Type Severity Reaction Status Date / Time Horse/Equine Containing Allergy Intermediate FROM HORSE Verified 05/27/24 20:57 Products SERUM TETANUS pollen extracts Allergy Intermediate HAYFEVER Verified 05/27/24 20:57 SYMPTOMS tetanus toxoid, adsorbed Allergy Intermediate BURNING Verified 05/27/24 20:57 SENSATION ALL OVER BODY - "ALMOST WENT UNCONSCIOUS" Sulfa (Sulfonamide AdvReac Severe "ENDED UP Verified 05/27/24 20:57 Antibiotics) WITH HEPATITIS AFTER TAKING MED" Home Meds Home Medications Medication Instructions Recorded Confirmed diphenhydramine HCl 25 mg tablet 25 mg PO TID PRN Allergy Symptoms 01/27/24 05/27/24 levothyroxine 100 mcg capsule 100 mcg PO DAILYBB 01/27/24 05/27/24 ezetimibe 10 mg tablet 10 mg PO QAM 05/27/24 05/27/24 Previous Rx's Medication Instructions Recorded aspirin 81 mg tablet,delayed 81 mg PO QAM #30 tabs 04/21/24 release atorvastatin 20 mg tablet 20 mg PO QAM #30 tabs 04/21/24 Results & Data (ED) Vital Signs Vital Signs - 24 hr 05/27/24 19:21 05/27/24 21:23 05/27/24 21:23 Temperature 36.4 C L Temperature Source Temporal Artery Scan Pulse Rate 60 60 Pulse Rate from SpO2 Sensor Respiratory Rate 18 Respiratory Effort / Characteristics Non-Labored Spontaneous Respiratory Depth Normal Respiratory Pattern Regular Blood Pressure 185/85 H 152/78 H Blood Pressure Mean 118 116 Blood Pressure Position Sitting Pulse Oximetry 96 Oxygen Delivery Method Room Air Sepsis Recent Fever Within 48 Hours No Sepsis New/Unexplained Change in Mental Status N/A Sepsis Action Taken by Nursing No Action Required 05/27/24 21:23 05/27/24 21:23 05/27/24 21:23 Temperature Temperature Source Pulse Rate Pulse Rate from SpO2 Sensor Respiratory Rate Respiratory Effort / Characteristics Respiratory Depth Respiratory Pattern Blood Pressure 152/78 H 152/78 H 152/78 H Blood Pressure Mean 116 116 116 Blood Pressure Position Pulse Oximetry Oxygen Delivery Method Sepsis Recent Fever Within 48 Hours Sepsis New/Unexplained Change in Mental Status Sepsis Action Taken by Nursing 05/27/24 21:24 Temperature Temperature Source Pulse Rate 60 Pulse Rate from SpO2 Sensor 61 Respiratory Rate 14 Respiratory Effort / Characteristics Respiratory Depth Respiratory Pattern Blood Pressure Blood Pressure Mean Blood Pressure Position Pulse Oximetry 96 Oxygen Delivery Method Sepsis Recent Fever Within 48 Hours Sepsis New/Unexplained Change in Mental Status Sepsis Action Taken by Nursing Laboratory Data 05/27/24 19:27 05/27/24 19:27 Lab Results 05/27/24 Range/Units 19:27 WBC 9.72 (4.8-10.8) K/ul RBC 4.65 L (4.70-6.10) M/uL Hgb 14.2 (14.0-18.0) g/dl Hct 41.3 L (42.0-52.0) % MCV 88.8 (80.0-100.0) fL MCH 30.5 (25.0-34.0) pg MCHC 34.4 (32.0-36.0) g/dL RDW Std Deviation 42.9 (36.4-46.3) fL RDW Coeff of Sadia 13.1 (11.5-14.5) % Plt Count 166 (130-400) K/uL MPV 9.9 (9.4-12.4) fL Immature Gran % (Auto) 0.3 % Neut % (Auto) 56.3 % Lymph % (Auto) 26.0 % [place] % (Auto) 11.5 % Eos % (Auto) 5.3 % Baso % (Auto) 0.6 % Neut # (Auto) 5.46 (1.40-6.50) K/uL Lymph # (Auto) 2.53 (1.20-3.40) K/uL [place] # (Auto) 1.12 H (0.11-0.59) K/uL Eos # (Auto) 0.52 H (0.00-0.50) K/uL Baso # (Auto) 0.06 (0.00-0.20) K/uL Immature Gran # (Auto) 0.03 (0.01-0.20) K/uL PT 10.3 (9.0-12.0) Seconds INR 0.9 (0.9-1.1) APTT 28 (21-31) Seconds PTT Ratio 1.0 Sodium 138 (136-145) mmol/L Potassium 4.3 (3.5-5.1) mmol/L Chloride 105 (98-107) mmol/L Carbon Dioxide 28 (21-32) mmol/L Anion Gap 5 (3-11) BUN 23 (6-23) mg/dl Creatinine 1.31 (0.6-1.4) mg/dl Est Cr Clr Drug Dosing 38.4 ml/min Est GFR ( Amer) 56.3 ml/min Est GFR (Non-Af Amer) 48.6 ml/min BUN/Creatinine Ratio 17.6 (10-20) Glucose 96 (70-99(Fasting)) mg/dl Calcium 9.7 (8.6-10.3) mg/dl Total Bilirubin 0.6 (0.2-1.0) mg/dl AST 25 (13-39) U/L ALT 16 (7-52) U/L Alkaline Phosphatase 67 (34-104) U/L Troponin I High Sens 6.7 (0-20) pg/ml Total Protein 7.5 (6.0-8.3) gm/dl Albumin 4.4 (3.4-5.0) gm/dl Globulin 3.1 (2.5-4.0) gm/dl Albumin/Globulin Ratio 1.4 (0.9-2) Administered Medications Heparin Sodium/Dextrose (Heparin Sodium/Dextrose) 25,000 units in 500 mls @ 26 mls/hr IV .[id number] JENNIFER; Protocol Stop: 06/26/24 20:59 Last Titration: 05/27/24 23:07 Dose: 1,300 units/hr, 26 mls/hr Documented By: AES Co-signed By: ANGELINE Admin: 05/27/24 21:22 Dose: 1,300 units/hr, 26 mls/hr Documented By: KIRK Co-signed By: GURMEET Sodium Chloride (Nss) 1,000 mls @ 75 mls/hr IV .[id number] JENNIFER Stop: 05/28/24 12:25 Last Admin: 05/27/24 23:24 Dose: 75 mls/hr Documented By: AES Discontinued Medications Heparin Sodium (Porcine) (Heparin Sod (Porcine) 1000 Unit/Ml) 1 units IV NOW ONE Stop: 05/27/24 20:52 Last Admin: 05/27/24 21:24 Dose: Not Given Documented By: KIRK Heparin Sodium (Porcine) (Heparin Sod (Porcine) 1000 Unit/Ml) 6,000 units IV NOW ONE Stop: 05/27/24 21:16 Last Admin: 05/27/24 21:23 Dose: 6,000 units Documented By: KIRK Co-signed By: GURMEET Heparin Sodium/Dextrose (Heparin Iv Adult Wt-Based Standard W/ Initial Bolus Protocol) 1 each IV NOW STA; Protocol Stop: 05/27/24 20:37 Last Admin: 05/27/24 21:23 Dose: Not Given Documented By: KIRK Discharge Plan Visit Data Chief Complaint: Referred by Doctor Stated Complaint: ABN RESULTS FROM OUT PATIENT ED Provider: Allan Davenport Discharge Problem: Acute subclavian vein thrombosis Patient Disposition: Being Evaluated by Hospitalist Discharge Instructions Interventions: ED Discharge Assessment Last Done: 05/27/24 22:32
[2024-05-27] MEDS ORDERED: Heparin IV Adult Wt-Based Standard w/ INITIAL Bolus Protocol IV SCH (21:15)
[2024-05-27] MEDS ORDERED: HEPARIN SOD (PORCINE) 1000 UNIT/ML IV ONE (21:15)
[2024-05-27] MEDS: HEPARIN SODIUM/DEXTROSE 25,000 UNITS/500 ML BAG IV SCH (21:22)
[2024-05-27] MEDS: HEPARIN SOD (PORCINE) 1000 UNIT/ML IV ONE ×2 (21:23→21:24)
[2024-05-27] MEDS: Heparin IV Adult Wt-Based Standard w/ INITIAL Bolus Protocol IV STA (21:23)
--- NOTE | 2024-05-27 21:36 | History & Physical Report ---
Date of Service May 27, 2024 Assessment & Plan (1) Acute subclavian vein thrombosis: Plan: 88-year-old male with past medical history significant for hypothyroidism, history of witnessed episode of apnea, GERD, CKD stage III, vertebral artery stenosis, sick sinus syndrome status post pacemaker recently on 04/20/2024 went to PCP office today for left upper extremity swelling and ultrasound was ordered which showed acute DVT. Patient states he noticed swelling since yesterday. There is no pain. Because of recent pacemaker placement he was concerned and went to PCP office today. Denies any shortness of breath. No chest pain. No headache or dizziness. No cough. No fever. No abdominal pain. Ambulating fine. Currently resting comfortably and hemodynamically stable. Acute DVT of left upper extremity Left upper Doppler: There is a thrombus in the left subclavian vein extending to the axillary vein and proximal cephalic vein. The thrombus is occlusive or nearly occlusive bowel minimal vascular flow is seen in a few levels. Started on IV heparin Closely monitor in the hospital Because of recent pacemaker will consult cardiology for further recommendations History of sick sinus syndrome Status post pacemaker Hypothyroidism On Synthyroid Vertebral artery stenosis On aspirin and statin DVT prophylaxis IV heparin Disposition Med/telemetry Full code. History of Present Illness Chief Complaint: Left upper extremity DVT Primary Care Provider: Sweta Waters DO 88-year-old male with past medical history significant for hypothyroidism, history of witnessed episode of apnea, GERD, CKD stage III, vertebral artery stenosis, sick sinus syndrome status post pacemaker recently on 04/20/2024 went to PCP office today for left upper extremity swelling and ultrasound was ordered which showed acute DVT. Patient states he noticed swelling since yesterday. There is no pain. Because of recent pacemaker placement he was concerned and went to PCP office today. Denies any shortness of breath. No chest pain. No headache or dizziness. No cough. No fever. No abdominal pain. Ambulating fine. Currently resting comfortably and hemodynamically stable. Past medical history. As mentioned above Past surgical history. Bilateral cataracts. EGD. Laparoscopic inguinal hernia repair. On the left side. Neck spine fusion. Tonsillectomy. Right repair of inguinal hernia. Vasectomy. Pacemaker placement. Social history. . No smoking. No alcohol use. No drug use. Family history. Mother had dementia. Allergies Allergy/AdvReac Type Severity Reaction Status Date / Time Horse/Equine Containing Allergy Intermediate FROM HORSE Verified 05/27/24 20:57 Products SERUM TETANUS pollen extracts Allergy Intermediate HAYFEVER Verified 05/27/24 20:57 SYMPTOMS tetanus toxoid, adsorbed Allergy Intermediate BURNING Verified 05/27/24 20:57 SENSATION ALL OVER BODY - "ALMOST WENT UNCONSCIOUS" Sulfa (Sulfonamide AdvReac Severe "ENDED UP Verified 05/27/24 20:57 Antibiotics) WITH HEPATITIS AFTER TAKING MED" Home Medications Medication Instructions Recorded Confirmed Type diphenhydramine HCl 25 mg tablet 25 mg PO TID PRN Allergy Symptoms 01/27/24 05/27/24 History levothyroxine 100 mcg capsule 100 mcg PO DAILYBB 01/27/24 05/27/24 History aspirin 81 mg tablet,delayed 81 mg PO QAM #30 tabs 04/21/24 05/27/24 Rx release atorvastatin 20 mg tablet 20 mg PO QAM #30 tabs 04/21/24 05/27/24 Rx ezetimibe 10 mg tablet 10 mg PO QAM 05/27/24 05/27/24 History Past Med/Surg History Problem List (Updated 05/27/24 @ 20:37 by Allan Davenport M.D.) Acute subclavian vein thrombosis (Acute) Syncope Mild aortic stenosis Vertebral artery stenosis (Acute) Symptomatic bradycardia (Acute) Medical History Recurrent right inguinal hernia LITTLE TRAVERSE (hard of hearing) History of bradycardia per "always naturally has a very low pulse rate" Hx MRSA infection ~2008, hospitalized 7 [place] the [place] in [facility], leg wound>treated Hx of urinary frequency Hypothyroidism History of diverticulitis Chronic kidney disease stage 3, possibly 4 per ; f/u PCP Cervical vertebral fusion ~2006 or 2007, per "very top of neck area, also removed 8 bone fragments from his neck">ROM is limited Anemia stated "she never knew about this, doesn't think this is correct" Blood pressure elevated without history of HTN per , recently blood pressure "has been good, never medicated for this" Erectile dysfunction Personal history of pneumonia (recurrent) ~2013, thinks he only had it once, not hosp; no residual symptoms Surgical History Hx of colonoscopy Hx of oral surgery oral implants placed Hx of bilateral cataract extraction H/O: vasectomy H/O inguinal hernia repair x2, right side Family History Mother Glaucoma Denies family history of Ovarian cancer Prostate cancer Myocardial infarction Breast cancer Colorectal cancer Social History Smoking Status: Never smoker Second Hand Exposure: No; Do You Dip or Chew Tobacco: No; Hx Alcohol Use: No Hx Substance Use: No Preferred Language: Botswanan Communication Ability: Effective Waste Collection Driver Required: No Beliefs That Will Affect Care: None marital status: Current Living Situation: Spouse Current Living Situation Comment: current occupational status: retired Feels Safe at Home: Yes Safety Concerns: Feels Safe At This Time Childhood Exposure to Second-Hand Smoke: No Physical Activity Frequency: Daily Assistive Devices: None Review of Systems Review of Systems: All systems reviewed & are unremarkable except as noted in HPI & below Physical Exam Physical Exam: General- Not in distress Head- atraumatic Eyes- PERRL. ENT- oropharynx clear Neck- supple, no JVD. Lungs- clear to auscultation no wheezing or crackles Heart- regular rate and rhythm; no murmur, no gallop. Pacemaker site no swelling or erythema seen Abdomen- normal bowel sounds, soft, nontender, no distension Extremities- Left Upper extremity swollen and mildly erythematous. Neuro- alert, oriented PERRL, no facial palsy; no dysarthria; moves extremities Results & Data Results & Data Vital Signs (Past 12 Hours) Vital Signs Temp Pulse Resp BP Pulse Ox O2 Del Method 05/27/24 19:21 36.4 C L 60 18 185/85 H 96 Room Air Diagnostic Findings Laboratory Results WBC 9.72 K/ul (4.8-10.8) 05/27/24 19: RBC 4.65 M/uL (4.70-6.10) L 05/27/24 19:27 Hgb 14.2 g/dl (14.0-18.0) 05/27/24 19:27 Hct 41.3 % (42.0-52.0) L 05/27/24 19:27 MCV 88.8 fL (80.0-100.0) 05/27/24 19:27 MCH 30.5 pg (25.0-34.0) 05/27/24 19: MCHC 34.4 g/dL (32.0-36.0) 05/27/24: RDW Std Deviation 42.9 fL (36.4-46.3) 05/27/24: RDW Coeff of Sadia 13.1 % (11.5-14.5) 05/27/24: Plt Count 166 K/uL (130-400) 05/27/24: MPV 9.9 fL (9.4-12.4) 05/27/24: Immature Gran % (Auto) 0.3 % 05/27/24: Neut % (Auto) 56.3 % 05/27/24: Lymph % (Auto) 26.0 % 05/27/24: Jasper % (Auto) 11.5 % 05/27/24: Eos % (Auto) 5.3 % 05/27/24: Baso % (Auto) 0.6 % 05/27/24 Neut # (Auto) 5.46 K/uL (1.40-6.50) 05/27/24: Lymph # (Auto) 2.53 K/uL (1.20-3.40) 05/27/24: Jasper # (Auto) 1.12 K/uL (0.11-0.59) H 05/27/24: Eos # (Auto) 0.52 K/uL (0.00-0.50) H 05/27/24: Baso # (Auto) 0.06 K/uL (0.00-0.20) 05/27/24: Immature Gran # (Auto) 0.03 K/uL (0.01-0.20) 05/27/24: PT 10.3 Seconds (9.0-12.0) 05/27/24: INR 0.9 (0.9-1.1) 05/27/24: APTT 28 Seconds (21-31) 05/27/24: PTT Ratio 1.0 05/27/24: Sodium 138 mmol/L (136-145) 09/12/24 19:27 Potassium 4.3 mmol/L (3.5-5.1) 05/27/24 19:27 Chloride 105 mmol/L (98-107) 05/27/24 19:27 Carbon Dioxide 28 mmol/L (21-32) 05/27/24 19:27 Anion Gap 5 (3-11) 05/27/24 19:27 BUN 23 mg/dl (6-23) 05/27/24 19:27 Creatinine 1.31 mg/dl (0.6-1.4) 05/27/24 19:27 Est Cr Clr Drug Dosing 38.4 ml/min 05/27/24 19:27 Est GFR ( Amer) 56.3 ml/min 05/27/24 19: Est GFR (Non-Af Amer) 48.6 ml/min 05/27/24 19: BUN/Creatinine Ratio 17.6 (10-20) 05/27/24 19:27 Glucose 96 mg/dl (70-99(Fasting)) 05/27/24 19: Calcium 9.7 mg/dl (8.6-10.3) 05/27/24 19: Total Bilirubin 0.6 mg/dl (0.2-1.0) 05/27/24 19: AST 25 U/L (13-39) 05/27/24 19: ALT 16 U/L (7-52) 05/27/24 19:27 Alkaline Phosphatase 67 U/L (34-104) 05/27/24 19:27 Troponin I High Sens 6.7 pg/ml (0-20) 05/27/24 19: Total Protein 7.5 gm/dl (6.0-8.3) 05/27/24 19:27 Albumin 4.4 gm/dl (3.4-5.0) 05/27/24 19: Globulin 3.1 gm/dl (2.5-4.0) 05/27/24 19: Albumin/Globulin Ratio 1.4 (0.9-2) 05/27/24 19:27 ECG Additional Comments: ECG. Atrial paced rhythm with prolonged AV conduction rate of 60. Code Status & VTE Plan VTE Prophylaxis Plan VTE Prophylaxis will be ordered: Yes
[2024-05-27] MEDS ORDERED: POLYETHYLENE (MIRALAX) 17 GM PACK PO PRN (23:06)
[2024-05-27] MEDS ORDERED: NITROGLYCERIN SL 0.4 MG/TAB TAB SL PRN (23:06)
[2024-05-27] MEDS ORDERED: ACETAMINOPHEN 325 MG TAB PO PRN (23:06)
[2024-05-27] MEDS ORDERED: diphenhydrAMINE Capsule 25 MG CAP PO PRN (23:18)
[2024-05-27] MEDS: SODIUM CHLORIDE 0.9% 1,000 ML IV SCH (23:24)
[2024-05-28 04:23] LABS: Basophils # (auto) 0.04 K/uL (0.00-0.20); Basophils % (auto) 0.5 %; Eosinophils # (auto) 0.51 K/uL (0.00-0.50); Eosinophils % (auto) 6.9 %; Hematocrit (blood only) 36.5 % (42.0-52.0); Hemoglobin 13.1 g/dl (14.0-18.0); Immature Granulocytes # (auto) 0.02 K/uL (0.01-0.20); Immature Granulocytes % (auto) 0.3 %; Lymphocytes # (auto) 2.14 K/uL (1.20-3.40); Lymphocytes % (auto) 28.9 %; Mean Corpuscular Hemoglobin 31.3 pg (25.0-34.0); Mean Corpuscular Hgb Conc 35.9 g/dL (32.0-36.0); Mean Corpuscular Volume 87.1 fL (80.0-100.0); Mean Platelet Volume 10.7 fL (9.4-12.4); Monocytes # (auto) 0.92 K/uL (0.11-0.59); Monocytes % (auto) 12.4 %; Neutrophils # (auto) 3.78 K/uL (1.40-6.50); Platelet Count 157 K/uL (130-400); RDW Coefficient of Variation 13.1 % (11.5-14.5); RDW Standard Deviation 41.4 fL (36.4-46.3); Red Blood Count 4.19 M/uL (4.70-6.10); White Blood Count 7.41 K/ul (4.8-10.8)
--- OUTSIDE RECORDS SUMMARY | 2024-05-28 04:31 | External Medical Summary | Summary of Care ---
Author Name Unknown Organization [facility] Address [address] [place] [address] Phone [phone] Care Team Providers Care Rn Clinical Trials Name Role Phone Sweta Waters DO Primary Care Provider Reason for Visit * Reason Onset Date Comments Advice 05/27/202405/27 Encounter Details Date Type Department Care Team (Late st Contact Info) Description 05/27/2024 Telephone [address] [facility] [place] [address] [place] [address] Sweta Waters DO [address] [place] [address] Advice (05/27) Allergies Active Allergy Reactions Criticality Noted Date Comments Pollen 01/08/2024 Sulfa Antibiotics 07/31/1998 hepatitis Tetanus-Diphtheria Toxoids Td 02/23/2020 Lightheaded. When was 19. Near syncope. Has done fine with newer tdap. documented as of this encounter (statuses as of 05/27/2024) Medications Medication Sig Dispensed Refills Start Date End Date Status diphenhydrAMINE HCl 25 MG Oral Capsule Take 1 Capsule by mouth every 6 hours as needed for Other (hay fever). Active Levothyroxine Sodium 100 MCG Oral Tablet (Levoxyl) Take 1 Tablet by mouth in the morning. (at least 30 min prior to breakfast or other meds). 90 Tablet 03/24/2024 Active Aspirin 81 MG Oral Tablet Delayed Release (Aspirin 81) Take 1 Tablet by mouth in the morning. Active Ezetimibe 10 MG Oral Tablet (Zetia)Indications: Stenosis of right vertebral artery Take 1 Tablet by mouth in the morning. 100 Tablet 1 04/30/2024 Active documented as of this encounter (statuses as of 05/27/2024) Active Problems Problem Noted Date Diagnosed Date Gastroesophageal reflux disease without esophagi tis 08/18/2023 Witnessed episode of apnea 02/27/2022 Chronic kidney disease, stage 3b 01/23/2021 Overview: Per CKD protocol Hypothyroidism, unspecified 04/27/2020 Well adult exam 02/23/2020 Overview: -Dee. Sister in law was Cathy Wiggins. Former PCP Dr Gallegos [facility] S/P cervical spinal fusion documented as of this encounter (statuses as of 05/27/2024) Resolved Problems Problem Noted Date Diagnosed Date Resolved Date Kidney disease, chronic, sta ge III (GFR 30-59 ml/min) 02/25/2020 01/25/2021 Overview: Per CKD protocol documented as of this encounter (statuses as of 05/27/2024) Immunizations Name Administration Dates Next Due COVID-19 mRNA, LNP-s, No Pre serve, 2-Dose Series (iHigh) 06/12/2021,11/28/2020,11/07/2020 COVID-19, LNP-s, No Preserve , Wale-sucrose, Ages 12+ (Pfizer) 01/17/2022 COVID-19, MRNA-LNP, 23-24, P F, 30 MCG/0.3 mL, 12 YRS AND ABOVE, IM (PFIZER-Comirnaty) 01/09/2024,06/30/2023 Covid-19, Mrna, Lnp-s, Pf, B ivalent, 30 Mcg, IM, 12 yrs and above (Pfizer) 01/22/2023,05/27/2022 H1N1 2009 Influenza, IM 08/16/2009 Pneumococcal Conjugate Vacc, 13 Valent (Prevnar) 05/17/2020,05/17/2015 Pneumococcal Polysaccharide PPV23 (Pneumovax) 06/28/2021,06/07/2016 Seasonal Influenza Virus Vac cine, Unspecified Formulation 06/05/2018,07/04/2017,06/07/2016 Seasonal Influenza, High Dos e, Trivalent, PF, IM (Fluzone HD) 05/17/2020,06/18/2019 Seasonal Influenza, Quadriva lent Hd (Fluzone Hd) 06/04/2023,05/21/2022,05/28/2021 Seasonal Influenza, Quadriva lent Hd, 65+ Yrs 05/17/2020 TDAP (age 10 and older)(Boostrix) 03/08/2021 Varicella [...] money to get more. Never true 08/18/2023 Childcare Answer Date Recorded Do you feel overwhelmed with taking care of a child, family member or friend? No 08/18/2023 Does your family need help f inding childcare? (Household - for ages 0-17 years) Not on file 08/18/2023 Clothing Answer Date Recorded Have you been unable to get clothing when it was really needed? No 08/18/2023 Is your family able to get c lothes or diapers when needed? (Household - for ages 0-17 years) Not on file 08/18/2023 Personal Safety Answer Date Recorded Do you feel unsafe or have concerns for your saf ety? No 08/18/2023 Do you have concerns for you r family's safety? (Household - for ages 0-17 years) Not on file 08/18/2023 Utilities Answer Date Recorded Do you have trouble paying y our heating, water, or electric bill? No 08/18/2023 Is your family able to pay t he heat, water, or electric bill? (Household - for ages 0-17 years) Not on file 08/18/2023 Does your family have access to good internet? (Household - for ages 0-17 years) Not on file 08/18/2023 Employment Status Answer Date Recorded Are you unemployed or without regular income? No 08/18/2023 Does the household have a re gular source of income? (Household - for ages 0-17 years) Not on file 08/18/2023 Social Connections Answer Date Recorded How often do you feel lonely or isolated from th ose around you? Never 08/18/2023 Financial Resource Strain Answer Date R ecorded Do you have any trouble payi ng for your medications, or do you think you might in the future? No 08/18/2023 Does your family have troubl e paying for medicine? (Household - for ages 0-17 years) Not on file 08/18/2023 Transportation Needs Answer Date Record ed READ ONLY Do you have troubl e getting a ride to medical visits or work? Never True 08/18/2023 Does your family have a hard time getting a ride to doctors visits? (Household - for ages 0-17 years) Not on file 08/18/2023 Has lack of transportation k ept you from medical appointments, meetings, work, or from getting things needed for daily living? Check all that apply. (Adult - for ages 18 years and over) Not on file 08/18/2023 Do you (or your family) have trouble finding or paying for a ride (transportation)? (Household - for ages 0-17 years) Not on file 08/18/2023 Housing Stability Answer Date Recorded Do you currently live in a s helter or have no steady place to sleep at night? No 08/18/2023 READ ONLY Do you think you a re at risk of becoming homeless? No 08/18/2023 Does your family worry about paying for your home or becoming homeless? (Household - for ages 0-17 years) Not on file 1 10/19/2022 Are you homeless or worried that you might be in the future? (Adult - for ages 18 years and over) Not on file Are you (or your family) francisco eless or worried that you might be in the future? (Household - for ages 0-17 years) Not on file Food Insecurity Answer Date Recorded Do you need food for this week? No 08/18/2023 Are you able to get enough f ood for your family? (Household - for ages 0-17 years) Not on file 08/18/2023 Does your family need food t his week? (Household - for ages 0-17 years) Not on file 08/18/2023 Do you always have enough fo od for your family? (Household - for ages 0-17 years) Not on file 08/18/2023 Sex and Gender Information Value Date Recorded Sex Assigned at Male 06/28/2022 11:13 AM EDT Gender Identity Male 06/28/2022 11:13 AM EDT Sexual Orientation Straight 06/28/2022 11 :13 AM EDT Job Start Date Occupation Industry Not on file Not on file Not on file documented as of this encounter Miscellaneous Notes * Telephone Encounter - Rosa Garcia OSA - 05/27/2024 2:36 PM EDT Appt added to schedule * Telephone Encounter - Leona Machuca LPN - 05/27/2024 2:07 PM EDT Call placed to patient. He reports he started to notice some swelling in his left arm yesterday late afternoon. States the swelling has continued. Now has swelling from shoulder down to fingertips. States he feels it is continuing to swell. States his left arm feels tight but does not hurt. Left arm is at least 2 inches larger than his right arm. States no change in color of skin, temperature, orsensation. No injury to arm. Recent pacemaker placement early April. currently on phone with cardiology office. Discussed with Dr. Waters. Pt agreeable to OV today at 4:00. helpdesk administrator - please place on schedule at 4:00. Thank you. * Telephone Encounter - Rosa Garcia OSA - 05/27/2024 1:57 PM EDT Pts left voicemail asking us to call back as pts L arm is really swollen. 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 Please call them back. documented in this encounter Plan of Treatment Upcoming Encounters Date Type Department Care Team (Late st Contact Info) Description 05/27/2024 4:20 PM EDT Office Visit [address] [place] [address] Sweta Waters, DO [address] [place] [address] 06/14/2024 9:20 AM EDT Office Visit [address] [place] [id number] Sweta Waters, DO [address] [place] [address] 06/22/2024 10:00 AM EDT Office Visit Dermatology, Monae Bruner [address] [facility] [address] [place] [place] [address] Joanie Smith PA-C [address] [place] [address] 07/02/2024 10:00 AM EDT Cardiac Studies Cardiology, [facility] [place] [address] [facility] [address] [place] [address] 07/02/2024 10:30 AM EDT Office Visit Cardiology, [facility] [address] [place] [address] Phoenix Shepherd, DO [address] [address] Scheduled Procedures Name Priority Associated Diagnoses Date/Ti me LAPAROSCOPIC REPAIR INGUINAL HERNIA INITIAL Recurrent right inguinal hernia Health Maintenance Due Date Last Done Comments Zoster Vaccines (2 of 3) 05/03/2010 03/08/2010 Adult Wellness Visit 06/28/2023 06/28/2022 COVID-19 Vaccine ( season) 2024 01/09/2024, 06/30/2023, 01/22/2023, Additional history exists Influenza Vaccine (FLU shot) (#1) 2024 06/04/2023, 05/21/2022, 05/28/2021, Additional history exists Depression Screening 08/18/2024 08/18/2023 TSH 01/07/2025 01/08/2024, 12/2022, 04/24/2023, Additional history exists Albumin/Creatinine Ratio 04/30/20252 024, 04/24/2023, 02/19/2023, Additional history exists CKD HGB USE SMARTSET 98730 04/30/202504/30, 04/30/2024, 01/08/2024, Additional history exists CKD PHOS USE SMARTSET 51549 04/30/202504/15, 04/24/2023, 02/19/2023, Additional history exists Pneumococcal Vaccine: 65+ Years Completed 06/28/2021, 05/17/2020, 06/07/2016, Additional history exists HPV (Gardasil) Vaccine Aged [...] filedocumented as of this encounter Care Teams Rn Clinical Trials Relationship Specialty Start Date End Date Sweta Waters DO [address] [place] [address] PCP - General Family Medicine 04/19/24 documented as of this encounter
--- OUTSIDE RECORDS SUMMARY | 2024-05-28 04:31 | External Medical Summary | Summary of Care ---
Author Name Unknown Organization [facility] Address [address] [place] [address] Phone [phone] Care Team Providers Care Furnace Helper Name Role Phone Sweta Waters DO Primary Care Provider Reason for Visit * Reason Onset Date Comments Advice 05/27/202405/27 Encounter Details Date Type Department Care Team (Late st Contact Info) Description 05/27/2024 Telephone Family Practice [facility] [place] [address] [place] [address] Sweta Waters DO [address] [place] [address] Advice (05/27) Allergies Active Allergy [...] Cathy Wiggins. Former PCP Dr Gallegos [facility] S/P cervical spinal fusion documented as of this encounter (statuses as of 05/27/2024) Resolved Problems Problem Noted Date Diagnosed Date Resolved Date Kidney disease, chronic, sta ge III (GFR 30-59 ml/min) 02/25/2020 01/25/2021 Overview: Per CKD protocol documented as of this encounter (statuses as of 05/27/2024) Immunizations Name Administration Dates Next Due COVID-19 mRNA, LNP-s, No Pre serve, 2-Dose Series ([employer]) 06/12/2021,11/28/2020,11/07/2020 COVID-19, LNP-s, No Preserve , Wale-sucrose, [...] Pt agreeable to OV today at 4:00. help desk rep - please place on schedule at 4:00. Thank you. * Telephone Encounter - Rosa Garcia OSA - 05/27/2024 1:57 PM EDT Pts left voicemail asking us to call back as pts L arm is really swollen. 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 Please call them back. documented in this encounter Plan of Treatment Upcoming Encounters Date Type Department Care Team (Late st Contact Info) Description 05/27/2024 4:20 PM EDT Office Visit [address] [place] [address] Sweta Waters, DO [address] [place] [address] 06/14/2024 9:20 AM EDT Office Visit [address] [place] [phone] Sweta Waters, DO [address] [place] [address] 06/22/2024 10:00 AM EDT Office Visit Dermatology, Monae Bruner [address] [facility] [address] [address] Joanie Smith PA-C [address] [address] 07/02/2024 10:00 AM EDT Cardiac Studies [facility]iology, [facility] [place] [address] [facility] [address] [place] [address] 07/02/2024 10:30 AM EDT Office Visit Cardiology, [facility] [address] [place] [address] Phoenix Shepherd, DO [address] [address] Scheduled Procedures Name Priority Associated Diagnoses Date/Ti [...] Additional history exists CKD HGB USE SMARTSET 05277 04/30/202504/30, 04/30/2024, 01/08/2024, Additional history exists CKD PHOS USE SMARTSET 94781 04/30/202504/15, 04/24/2023, 02/19/2023, Additional history exists Pneumococcal [...] filedocumented as of this encounter Care Teams Furnace Helper Relationship Specialty Start Date End Date Sweta Waters DO [address] [place] [address] PCP - General Family Medicine 04/19/24 documented as of this encounter
[2024-05-28 04:33] LABS: BUN Creatinine Ratio 16.4 (10-20); Calcium 8.8 mg/dl (8.6-10.3); Creatinine Clr Calc Pharmacy 37.2 ml/min; Est GFR (Non-African American) 44.9 ml/min; Magnesium 1.9 mg/dl (1.7-2.4); Potassium 3.7 mmol/L (3.5-5.1)
[2024-05-28 05:19] LABS: ANTI-Xa, UFH(UnfractionatedHep 1.15 IU/ml (0.3-0.7)
[2024-05-28 06:27] LABS: ANTI-Xa, UFH(UnfractionatedHep 1.15 IU/ml (0.3-0.7)
[2024-05-28] MEDS: LEVOTHYROXINE SODIUM 100 MCG TABLET PO SCH (06:58)
--- NOTE | 2024-05-28 07:18 | XRay Report ---
XR chest 1V portable CLINICAL HISTORY: left arm swelling, DVT COMPARISON STUDY: Chest radiograph April 21, 2024. FINDINGS: A left subclavian pacer remains in place. There are postoperative findings within the cervi romana spine. There is mild cardiomegaly without evidence for pulmonary edema. No consolidation is prese nt. There is no pneumothorax or pleural effusion. Linear bilateral densities favor atelectasis. IMPRESSION: No acute cardiopulmonary findings. No significant change in appearance of the chest. ACT 112: Negative or not required by law. Electronically signed by: Jimmy Mcdaniel M.D. 05/28/2024 7:17 AM
[2024-05-28] MEDS: EZETIMIBE 10 MG TAB PO SCH (08:24)
[2024-05-28] MEDS: ATORVASTATIN 20 MG TAB PO SCH (08:24)
[2024-05-28] MEDS: ASPIRIN 81 MG ECTAB PO SCH (08:24)
[2024-05-28 08:39] LABS: ANTI-Xa, UFH(UnfractionatedHep 0.49 IU/ml (0.3-0.7)
--- NOTE | 2024-05-28 09:31 | Hospitalist Progress Note ---
Date of Service May 28, 2024 Assessment & Plan (1) Acute subclavian vein thrombosis: Plan: 88-year-old male with past medical history significant for hypothyroidism, history of witnessed episode of apnea, GERD, CKD stage III, vertebral artery stenosis, sick sinus syndrome status post pacemaker recently on 04/20/2024 went to PCP office for left upper extremity swelling and ultrasound was ordered which showed acute DVT, was referred for admission. Acute DVT of left upper extremity Patient presents with left upper extremity swelling Left upper Doppler: There is a thrombus in the left subclavian vein extending to the axillary vein and proximal cephalic vein. The thrombus is occlusive or nearly occlusive bowel minimal vascular flow is seen in a few levels. Started on IV heparin Cardiology evaluated the patient. recommend heparin for 24 hours and then Eliquis for total of 3 months. Patient wants to pay for eliquis out of pocket. will provide a coupon for 1 month at discharge. History of sick sinus syndrome Status post pacemaker Hypothyroidism On Synthyroid, continue Vertebral artery stenosis On aspirin , continue Patient couldn't tolerate statin DVT prophylaxis IV heparin Disposition Med/telemetry Full code. Discussed with patient's and son at bedside. Agreeable with the plan. Please note the above document was generated using voice recognition software. It may contain grammatical, syntax or spelling errors. Any formal questions or concerns about the content, text or information contained within the body of this dictation should be directly addressed to the provider for clarification Admission and Anticipated Discharge Date Admission Date: May 27, 2024 Subjective Patient seen and examined at bedside. Comfortable; not in distress. Denies fever, chills, chest pain, shortness of breath, abdominal pain or urinary symptoms. No significant overnight events Review of Systems Review of Systems: All systems reviewed & are unremarkable except as noted in Subjective Physical Exam Physical Exam: General- Not in distress Head- atraumatic Eyes- PERRL. ENT- oropharynx clear Neck- supple, no JVD. Lungs- clear to auscultation no wheezing or crackles Heart- regular rate and rhythm; no murmur, no gallop. Pacemaker site no swelling or erythema seen Abdomen- normal bowel sounds, soft, nontender, no distension Extremities- Left Upper extremity swollen and mildly erythematous. Neuro- alert, oriented PERRL, no facial palsy; no dysarthria; moves extremities Results & Data Results & Data Vital Signs (Past 12 Hours) Vital Signs Temp Pulse Pulse Pulse Resp BP BP 05/28/24 08:12 36.7 C 59 L 18 155/79 H 05/28/24 08:03 05/28/24 03:22 36.7 C 60 20 146/73 H 05/28/24 01:22 63 05/28/24 00:28 36.4 C L 18 152/77 H 05/28/24 00:24 36.8 C 61 18 157/77 H 05/27/24 22:31 148/84 H 05/27/24 22:31 148/84 H 05/27/24 22:12 54 L 24 05/27/24 22:03 74 21 05/27/24 22:00 149/73 H 05/27/24 22:00 149/73 H 05/27/24 22:00 149/73 H 05/27/24 21:57 21 Pulse Ox O2 Del Method 05/28/24 08:12 93 Room Air 05/28/24 08:03 Room Air 05/28/24 03:22 95 Room Air 05/28/24 01:22 05/28/24 00:28 95 Room Air 05/28/24 00:24 96 Room Air 05/27/24 22:31 05/27/24 22:31 05/27/24 22:12 96 05/27/24 22:03 75 L 05/27/24 22:00 05/27/24 22:00 05/27/24 22:00 05/27/24 21:57 98
--- NOTE | 2024-05-28 12:56 | Cardiology Consultation ---
Date of Consultation May 28, 2024 Assessment & Plan (1) Acute subclavian vein thrombosis: (2) Pacemaker: Plan 88-year-old male who presents with edema and swelling of the left arm 5 weeks post dual-chamber pacemaker insertion for symptomatic bradycardia Patient notes had immobilized left arm for nearly 6 weeks Exam reveals no vascular compromise with moderate edema arm and hand. No evidence suggesting thromboembolic phenomena/pulmonary embolus Impression: Subclavian/axillary vein thrombosis following pacemaker lead implantation, no vascular compromise Recommendations: IV heparin additional 24 hours Transition to Eliquis. Would recommend discussing possible cost but would choose over warfarin given patient's plans for wintering 5 months in the [facility] Goal 3 months anticoagulation Elevate arm, compression sleeve Discussed in detail with the patient History of Present Illness Reason for Consultation: Left arm deep venous thrombosis post pacemaker Requesting Physician: Dr. Byrd Attending Physician: Campbell Byrd MD History of Present Illness Patient is an 88-year-old male who underwent dual-chamber pacemaker insertion on 04/20/2024 presenting with acute symptomatic bradycardia. Patient represents this admission noting having developed edema and swelling of the left arm. Noted measurements significantly larger in the left arm in comparison to the right and saw medical evaluation due to concerns. No pain or discomfort. Has been feeling well since pacemaker inserted. No fevers chills or unexplained infections. No acute dyspnea. No prior history of bleeding Does well taking medications Very active about home and anticipates travel to his home in [facility] in the [facility] for 5 months in July Patient referred yesterday for venous duplex of the left arm demonstrating substantial left arm deep venous thrombosis. Exam no arterial compromise with moderate edema Patient begun on IV heparin Allergies Allergy/AdvReac Type Severity Reaction Status Date / Time Horse/Equine Containing Allergy Intermediate FROM HORSE Verified 05/27/24 20:57 Products SERUM TETANUS pollen extracts Allergy Intermediate HAYFEVER Verified 05/27/24 20:57 SYMPTOMS tetanus toxoid, adsorbed Allergy Intermediate BURNING Verified 05/27/24 20:57 SENSATION ALL OVER BODY - "ALMOST WENT UNCONSCIOUS" Sulfa (Sulfonamide AdvReac Severe "ENDED UP Verified 05/27/24 20:57 Antibiotics) WITH HEPATITIS AFTER TAKING MED" Home Medications Medication Instructions Recorded Confirmed Type diphenhydramine HCl 25 mg tablet 25 mg PO TID PRN Allergy Symptoms 01/27/24 05/27/24 History levothyroxine 100 mcg capsule 100 mcg PO DAILYBB 01/27/24 05/27/24 History aspirin 81 mg tablet,delayed 81 mg PO QAM #30 tabs 04/21/24 05/27/24 Rx release atorvastatin 20 mg tablet 20 mg PO QAM #30 tabs 04/21/24 05/27/24 Rx ezetimibe 10 mg tablet 10 mg PO QAM 05/27/24 05/27/24 History Patient History Medical History Recurrent right inguinal hernia UGASHIK (hard of hearing) History of bradycardia per "always naturally has a very low pulse rate" Hx MRSA infection ~2008, hospitalized 7 days while out of the country in [facility], leg wound>treated Hx of urinary frequency Hypothyroidism History of diverticulitis Chronic kidney disease stage 3, possibly 4 per ; f/u PCP Cervical vertebral fusion ~2006 or 2007, per "very top of neck area, also removed 8 bone fragments from his neck">ROM is limited Anemia stated "she never knew about this, doesn't think this is correct" Blood pressure elevated without history of HTN per , recently blood pressure "has been good, never medicated for this" Erectile dysfunction Personal history of pneumonia (recurrent) ~2013, thinks he only had it once, not hosp; no residual symptoms Surgical History Hx of colonoscopy Hx of oral surgery oral implants placed Hx of bilateral cataract extraction H/O: vasectomy H/O inguinal hernia repair x2, right side Family History Mother Glaucoma Denies family history of Ovarian cancer Prostate cancer Myocardial infarction Breast cancer Colorectal cancer Social History Smoking Status: Never smoker Second Hand Exposure: No; Do You Dip or Chew Tobacco: No; Hx Alcohol Use: No Hx Substance Use: No Preferred Language: Tanzanian Communication Ability: Effective 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: No Beliefs That Will Affect Care: None marital status: Current Living Situation: Spouse Current Living Situation Comment: current occupational status: retired Feels Safe at Home: Yes Safety Concerns: Feels Safe At This Time Childhood Exposure to Second-Hand Smoke: No Physical Activity Frequency: Daily Assistive Devices: None Review of Systems Review of Systems: All systems reviewed & are unremarkable except as noted in HPI & below Physical Exam Constitutional: WD/WN, vitals as above no acute distress Eyes: PERRL, conjunctivae normal, anicteric sclerae ENMT: external ear and nose normal, oropharynx normal Neck: trachea midline, no thyromegaly Respiratory: normal respiratory effort, lungs clear to auscultation Cardiovascular: RRR, no murmur, no edema Vessels: no JVD Extremities: no edema Chest (Breasts): Chest: + pacemaker (Site intact without erythema or tenderness) Gastrointestinal (Abdomen): normal bowel sounds, soft, nontender, no hepatosplenomegaly Musculoskeletal: Left arm moderate edema shoulder to hand. Arm not tense. No compromise in pulses brachial or radial. Neurologic: PERRL, EOMI, accommodation nl, no face palsy, no dysarthria Results & Data Vital Signs (Past 12 Hours) Vital Signs Temp Pulse Pulse Resp BP Pulse Ox O2 Del Method 05/28/24 11:19 36.8 C 59 L 18 146/76 H 94 Room Air 05/28/24 08:12 36.7 C 59 L 18 155/79 H 93 Room Air 05/28/24 08:03 Room Air 05/28/24 07:00 60 05/28/24 03:22 36.7 C 60 20 146/73 H 95 Room Air 05/28/24 01:22 63 Laboratory Results Laboratory Results - last 24 hr 05/27/24 05/28/24 05/28/24 19:27 03:32 05:27 WBC 9.72 7.41 RBC 4.65 L 4.19 L Hgb 14.2 13.1 L Hct 41.3 L 36.5 L MCV 88.8 87.1 MCH 30.5 31.3 MCHC 34.4 35.9 RDW Std Deviation 42.9 41.4 RDW Coeff of Sadia 13.1 13.1 Plt Count 166 157 MPV 9.9 10.7 Immature Gran % (Auto) 0.3 0.3 Neut % (Auto) 56.3 51.0 Lymph % (Auto) 26.0 28.9 Whitman % (Auto) 11.5 12.4 Eos % (Auto) 5.3 6.9 Baso % (Auto) 0.6 0.5 Neut # (Auto) 5.46 3.78 Lymph # (Auto) 2.53 2.14 Whitman # (Auto) 1.12 H 0.92 H Eos # (Auto) 0.52 H 0.51 H Baso # (Auto) 0.06 0.04 Immature Gran # (Auto) 0.03 0.02 PT 10.3 INR 0.9 APTT 28 PTT Ratio 1.0 Heparin Anti-Xa, Unfract 1.15 H* 1.15 H* Sodium 138 139 Potassium 4.3 3.7 Chloride 105 108 H Carbon Dioxide 28 25 Anion Gap 5 6 BUN 23 23 Creatinine 1.31 1.40 Est Cr Clr Drug Dosing 38.4 37.2 Est GFR ( Amer) 56.3 52.0 Est GFR (Non-Af Amer) 48.6 44.9 BUN/Creatinine Ratio 17.6 16.4 Glucose 96 114 H Calcium 9.7 8.8 Magnesium 1.9 Total Bilirubin 0.6 AST 25 ALT 16 Alkaline Phosphatase 67 Troponin I High Sens 6.7 Total Protein 7.5 Albumin 4.4 Globulin 3.1 Albumin/Globulin Ratio 1.4 05/28/24 07:55 WBC RBC Hgb Hct MCV MCH MCHC RDW Std Deviation RDW Coeff of Sadia Plt Count MPV Immature Gran % (Auto) Neut % (Auto) Lymph % (Auto) Whitman % (Auto) Eos % (Auto) Baso % (Auto) Neut # (Auto) Lymph # (Auto) Whitman # (Auto) Eos # (Auto) Baso # (Auto) Immature Gran # (Auto) PT INR APTT PTT Ratio Heparin Anti-Xa, Unfract 0.49 Sodium Potassium Chloride Carbon Dioxide Anion Gap BUN Creatinine Est Cr Clr Drug Dosing Est GFR ( Amer) Est GFR (Non-Af Amer) BUN/Creatinine Ratio Glucose Calcium Magnesium Total Bilirubin AST ALT Alkaline Phosphatase Troponin I High Sens Total Protein Albumin Globulin Albumin/Globulin Ratio Diagnostic Findings US venous doppler UE LT CLINICAL HISTORY: LEFT ARM SWELLING, EDEMA PROCEDURE: Left upper extremity real-time compression venous ultrasound with Duplex and color Doppler imaging. Comparison: None available at the time of this dictation. FINDINGS/IMPRESSION: There is a thrombus in the left subclavian vein extending to the axillary vein and proximal cephalic vein. The thrombus is occlusive or nearly occlusive bowel minimal vascular flow is seen in a few levels.
--- NOTE | 2024-05-28 13:49 | Electrocardiogram Report ---
Test Reason : Blood Pressure : */* mmHG Vent. Rate : 60 BPM Atrial Rate : 60 BPM P-R Int : 244 ms QRS Dur : 74 ms QT Int : 406 ms P-R-T Axes : -19 -28 38 degrees QTcB Int : 406 ms Atrial-paced rhythm with prolonged AV conduction Inferior infarct (cited on or before 21-Apr-2024) Anterolateral infarct (cited on or before 21-Apr-2024) Abnormal ECG When compared with ECG of 21-Apr-2024 05:33, No significant change was found Confirmed by Ricky Vickers ([id number]) on 05/28/2024 1:49:01 PM Referred By: Sweta Waters Confirmed By: Ricky Vickers
--- NOTE | 2024-05-28 15:36 | Electrocardiogram Report ---
Test Reason : Blood Pressure : */* mmHG Vent. Rate : 60 BPM Atrial Rate : 60 BPM P-R Int : 252 ms QRS Dur : 78 ms QT Int : 420 ms P-R-T Axes : 13 17 34 degrees QTcB Int : 420 ms Atrial-paced rhythm with prolonged AV conduction Possible Anterior infarct (cited on or before 21-Apr-2024) Nonspecific T wave abnormality Abnormal ECG When compared with ECG of 27-May-2024 19:27, QRS axis Shifted right Criteria for Inferior infarct are no longer Present Questionable change in initial forces of Lateral leads Nonspecific T wave abnormality, worse in Inferior leads Nonspecific T wave abnormality no longer evident in Lateral leads Confirmed by Ricky Vickers ([id number]) on 05/28/2024 3:35:58 PM Referred By: Sweta Waters Confirmed By: Ricky Vickers
[2024-05-28 15:55] LABS: ANTI-Xa, UFH(UnfractionatedHep 0.76 IU/ml (0.3-0.7)
[2024-05-28] MEDS ORDERED: WARFARIN SOD 5 MG TAB PO SCH (16:00)
[2024-05-28 23:43] LABS: ANTI-Xa, UFH(UnfractionatedHep 0.97 IU/ml (0.3-0.7)
[2024-05-29 04:29] LABS: ANTI-Xa, UFH(UnfractionatedHep 0.72 IU/ml (0.3-0.7)
[2024-05-29 04:43] LABS: INR 1.1 (0.9-1.1); Prothrombin Time 12.1 Seconds (9.0-12.0)
[2024-05-29 07:41] VITALS: RESP 20
--- NOTE | 2024-05-29 08:36 | Discharge Summary ---
Date of Service May 29, 2024 Admission HPI Per Admitting Provider 88-year-old male with past medical history significant for hypothyroidism, history of witnessed episode of apnea, GERD, CKD stage III, vertebral artery stenosis, sick sinus syndrome status post pacemaker recently on 04/20/2024 went to PCP office today for left upper extremity swelling and ultrasound was ordered which showed acute DVT. Patient states he noticed swelling since yesterday. There is no pain. Because of recent pacemaker placement he was concerned and went to PCP office today. Denies any shortness of breath. No chest pain. No headache or dizziness. No cough. No fever. No abdominal pain. Ambulating fine. Currently resting comfortably and hemodynamically stable. Past medical history. As mentioned above Past surgical history. Bilateral cataracts. EGD. Laparoscopic inguinal hernia repair. On the left side. Neck spine fusion. Tonsillectomy. Right repair of inguinal hernia. Vasectomy. Pacemaker placement. Social history. . No smoking. No alcohol use. No drug use. Family history. Mother had dementia. Admission Exam Per Admitting Provider General- Not in distress Head- atraumatic Eyes- PERRL. ENT- oropharynx clear Neck- supple, no JVD. Lungs- clear to auscultation no wheezing or crackles Heart- regular rate and rhythm; no murmur, no gallop. Pacemaker site no swelling or erythema seen Abdomen- normal bowel sounds, soft, nontender, no distension Extremities- Left Upper extremity swollen and mildly erythematous. Neuro- alert, oriented PERRL, no facial palsy; no dysarthria; moves extremities Principal Diagnosis Acute left upper arm DVT Discharge Exam General- Not in distress Head- atraumatic Eyes- PERRL. ENT- oropharynx clear Neck- supple, no JVD. Lungs- clear to auscultation no wheezing or crackles Heart- regular rate and rhythm; no murmur, no gallop. Pacemaker site no swelling or erythema seen Abdomen- normal bowel sounds, soft, nontender, no distension Extremities- Left Upper extremity larger compared to right arm Neuro- alert, oriented PERRL, no facial palsy; no dysarthria; moves extremities Discharge Data Allergies Allergy/AdvReac Type Severity Reaction Status Date / Time Horse/Equine Containing Allergy Intermediate FROM HORSE Verified 05/27/24 20:57 Products SERUM TETANUS pollen extracts Allergy Intermediate HAYFEVER Verified 05/27/24 20:57 SYMPTOMS tetanus toxoid, adsorbed Allergy Intermediate BURNING Verified 05/27/24 20:57 SENSATION ALL OVER BODY - "ALMOST WENT UNCONSCIOUS" Sulfa (Sulfonamide AdvReac Severe "ENDED UP Verified 05/27/24 20:57 Antibiotics) WITH HEPATITIS AFTER TAKING MED" Consultations 05/27/24 20:41 ED Decision to Admit Stat 05/28/24 08:00 Consult Cardiology Routine Hospital Course (1) Acute subclavian vein thrombosis: Acute DVT of left upper extremity Patient presents with left upper extremity swelling History of pacemaker placement on April 21, 2024 for symptomatic bradycardia Left upper Doppler: There is a thrombus in the left subclavian vein extending to the axillary vein and proximal cephalic vein. The thrombus is occlusive or nearly occlusive bowel minimal vascular flow is seen in a few levels. Patient was started on IV heparin. Cardiology was consulted for comanagement. Cardiology recommended heparin for at least 24 hours; then recommended to switch over to Eliquis for total of 6months. Please note the above document was generated using voice recognition software. It may contain grammatical, syntax or spelling errors. Any formal questions or concerns about the content, text or information contained within the body of this dictation should be directly addressed to the provider for clarification Total Time Total Time Spent Total Time Spent (In Minutes): 34 Total Time Includes: Examination of the Patient, Discharge Planning, Medication Reconciliation, Communication With Other Providers and Other Discharge Plan Discharge Items Patient Disposition: Home - Self-Care Reason For Visit: ACUTE LEFT UPPER EXTREMITY DVT. RECENT PACEMAKER Discharge Diagnosis: Acute DVT of left subclavian vein Activity: Resume your previous activity Non-emergency contact: Primary Care Provider Call non-emergency contact if: you have any medication questions and your symptoms worsen Follow-up/Referrals: Sweta Waters DO [Primary Care Provider] - (The [place] [id number] [facility] office has been made aware of your discharge and will contact you for a follow up appointment.) Diet: Regular Addtl Attending Provider Instructions: You were found to have blood clot in the veins of your left arm. You are prescribed blood thinner(Eliquis) to be taken as follows: 1) Take 2 tablets ( 10mg) twice a day for 7 days ( till June 04Friday) 2) Take 1 tablet twice a day ( Starting June 05Friday) You will need to be on blood thinner for at least 3 months. Please follow-up with your primary care doctor. Please monitor for any bleeding. Please contact your primary care doctor or seek immediate medical attention if you start to experience epistaxis, dark stool or have a fall Pending Studies at Discharge: No Stand-Alone Forms: My [facility] goBramble, Smoking Cessation Medications and DC Order Prescriptions: New Eliquis 5 mg Tablet 5 mg PO BID Qty: 74 0RF Continued diphenhydramine HCl 25 mg Tablet 25 mg PO TID PRN (Reason: Allergy Symptoms) levothyroxine 100 mcg Capsule 100 mcg PO DAILYBB atorvastatin 20 mg Tablet 20 mg PO QAM Qty: 30 0RF aspirin 81 mg Tablet,Delayed Release (Dr/Ec) 81 mg PO QAM Qty: 30 0RF ezetimibe 10 mg tablet 10 mg PO QAM Discharge Orders: Discharge Order (Routine); Ordered 05/29/24 Ordered By: Campbell Byrd Admission Data Admit Date/Time: 05/27/24 21:25 Attending Provider: Campbell Byrd Admit Provider: Keith Oneill Primary Care Provider: Sweta Waters Other Providers: Keith Oneill; Sudheer Snyder Other Interventions: Discharge Summary Assessment (RN) Last Done: 05/29/24 10:58
[2024-05-29] MEDS: APIXABAN 5 MG TABLET PO SCH (09:39)
[2024-05-29 09:57] VITALS: PULSE 62; TEMP 98.6; O2SAT 92
[2024-05-29 10:58] VITALS: BP 157/77
--- NOTE | 2024-05-29 11:04 | Cardiology Progress Note ---
Date of Service May 29, 2024 Assessment & Plan (1) Acute subclavian vein thrombosis: (2) Pacemaker: Plan 88-year-old male who presents with edema and swelling of the left arm 5 weeks post dual-chamber pacemaker insertion for symptomatic bradycardia Patient notes had immobilized left arm for nearly 6 weeks Exam reveals no vascular compromise with moderate edema arm and hand. No evidence suggesting thromboembolic phenomena/pulmonary embolus Impression: Subclavian/axillary vein thrombosis following pacemaker lead implantation, no vascular compromise Recommendations: IV heparin additional 24 hours Transition to Eliquis. Would recommend discussing possible cost but would choose over warfarin given patient's plans for wintering 5 months in the [facility] Goal 3 months anticoagulation Elevate arm, compression sleeve Discussed in detail with the patient 05/29/2024 Subclavian/axillary vein thrombosis symptomatically improving. Discussed management in detail 3 to 6 months of anticoagulation he wishes 6 months unless bleeding issues develop. Would transition to Eliquis Stable for discharge post transition Admission and Anticipated Discharge Date Admission Date: May 27, 2024 Subjective Patient was seen and examined, chart, medications, telemetry reviewed Left arm edema improving. No cardiac complaints. No bleeding issues on anticoagulation No arrhythmias on telemetry Review of Systems Review of Systems: All systems reviewed & are unremarkable except as noted in Subjective Physical Exam Constitutional: WD/WN, vitals as above no acute distress Eyes: PERRL, conjunctivae normal, anicteric sclerae ENMT: external ear and nose normal, oropharynx normal Neck: trachea midline, no thyromegaly Cardiovascular: Vessels: no JVD Extremities: + edema (Left arm improved) Chest (Breasts): Chest: + pacemaker (Site intact without erythema or tenderness) Gastrointestinal (Abdomen): normal bowel sounds, soft, nontender, no hepatosplenomegaly Neurologic: PERRL, EOMI, accommodation nl, no face palsy, no dysarthria Results & Data Vital Signs (Past 12 Hours) Vital Signs Temp Pulse Pulse Resp BP Pulse Ox Pulse Ox 05/29/24 10:58 37 C 62 59 L 20 150/80 H 92 05/29/24 09:42 37 C 62 20 150/80 H 92 05/29/24 07:40 36.8 C 59 L 20 153/80 H 94 05/29/24 04:03 36.4 C L 61 18 138/77 95 05/28/24 23:31 36.4 C L 61 18 138/77 94 05/28/24 23:06 98 O2 Del Method O2 Del Method 05/29/24 10:58 05/29/24 09:42 Room Air 05/29/24 07:40 Room Air 05/29/24 04:03 Room Air 05/28/24 23:31 Room Air 05/28/24 23:06 Room Air Laboratory Results Laboratory Results - last 24 hr 05/28/24 05/28/24 05/29/24 14:42 22:22 01:53 PT 12.1 H INR 1.1 Heparin Anti-Xa, Unfract 0.76 H* 0.97 H* 0.72 H*
[2024-06-05] MEDS ORDERED: APIXABAN 5 MG TABLET PO SCH (09:00)
== END 2024-05-29 12:14 | disposition home or self-care (01) | DRG 301 ==
LOC: ED 19:15 → 2W 21:25

== ENCOUNTER 2025-04-20 09:18 | Inpatient (IN) ==
--- NOTE | 2025-04-20 09:51 | Emergency Department Note ---
Impression & Plan Dizziness, Stroke-like symptoms, Abnormal CT of the head, Nystagmus ED Provider Note NAME: JB WONG AGE: 89 SEX: M : 1935 ARRIVES VIA: Walk-In INFORMANT: [Patient] ED PROVIDER(S): [Brett Ferris MD] Patient first seen by me at 0930 CHIEF COMPLAINT: Vertigo HISTORY OF PRESENT ILLNESS: The patient is an 89-year-old male who states that about 2 and a half hours ago, around 7 AM, he had come in to his house from an outside swim. He was in his bedroom and he noticed that the room was spinning. He felt as if things were moving. The patient did not pass out. There was no chest pain or shortness of breath. The patient had felt a similar sensation a year ago and at that time, his heart rate was in the 20s and he required an emergent pacemaker. He was concerned that the pacemaker or his heart was again the problem. Patient has not had fever, chills, cough or congestion. He has been in baseline health. He has never been diagnosed with vertigo. No history of CVA. The patient is no longer on Eliquis, this was stopped several months ago. He now takes a baby aspirin. PMHx/PSHx/Social Hx: See Below PHYSICAL EXAM: GENERAL: Patient is in no acute distress. HEENT: No acute trauma, normocephalic atraumatic, mucous membranes moist, no nasal congestion. Patient does have some horizontal nystagmus, worse when looking left. NECK: No stridor, no adenopathy, no meningismus, trachea is midline. LUNGS: Clear to auscultation bilaterally, no wheeze, no rhonchi, breath sounds equal. HEART: Without murmurs gallops or rubs, regular rate and rhythm. ABDOMEN: Soft, nontender, no peritonitis. EXTREMITIES: No cyanosis, full range of motion of all the joints without pain or difficulty. NEUROLOGIC: Oriented x 3, no acute motor or sensory deficits, no focal weakness. No speech slurring or facial droop, excellent historian. No extremity drift or cerebellar dysfunction. SKIN: No jaundice, no diaphoresis. DIFFERENTIAL DIAGNOSIS: CVA, vertigo, dysrhythmia, pacemaker malfunction, anemia, among others. EMERGENCY DEPARTMENT PROCEDURES: MEDICAL DECISION MAKING: There is no leukocytosis or concerning anemia. There is a normal platelet count. No coagulopathy. No renal failure or significant electrolyte abnormality. No concerning liver enzyme elevation. ECG shows an atrial paced rhythm, no dysrhythmia. Cardiac enzyme testing x 1 is not consistent with acute cardiac injury. Pacemaker interrogation did not show any issues with pacemaker functionality. No concerning dysrhythmias. Urinalysis did not show findings of infection. Brain CT showed no acute bleed or mass effect. CT angio of the head and neck were performed. There was some vertebral narrowing/stenosis. On exam, the patient had horizontal nystagmus, no focal neurologic findings on extremity testing. No speech slur. The patient received IV saline, IV Zofran, IV Benadryl. He was given IV Decadron. He eventually was given a dose of oral Plavix. The patient did not really have much improvement with the medications administered. Given the patient's presentation, given his abnormal CT imaging, I did speak with the [facility] telestroke neurologist. For now, the patient is to be hospitalized for further stroke workup. Plavix was recommended. TNK was not recommended. The patient appears to have vertigo, certainly, a posterior circulation stroke could also be responsible for his symptoms. Further workup inpatient is warranted. I did speak with the case management team, the on-call hospitalist was consulted. Prior/Outside records/notes reviewed: None ECG per my interpretation: Indication was dizziness. The ECG shows an atrial paced rhythm with a prolonged AV conduction. The rate is 61. There is poor R wave progression. There is no acute ST elevation, no PVCs. The QTc is 422. Continuous Cardiac Monitoring per my interpretation: An order was placed for continuous cardiac monitoring. The monitor shows a rate of 60 with atrial pacing. Imaging/x-ray results per my interpretation: Chronic Medical/Social conditions affecting care: Advanced age, history of pacemaker placement. Care/Management discussed with: [facility] telemedicine neurology-Dr. Lira. Case management and the on-call hospitalist Level of care consideration(s): After review of the information above and other included data: --I believe the patient requires escalation of care to admission DISPOSITION: Admission Past Med/Surg History Problem List (Updated 04/20/25 @ 14:48 by Brett Ferris MD) Nystagmus (Acute) Abnormal CT of the head (Acute) Stroke-like symptoms (Acute) Dizziness (Acute) Dizziness Hypothyroidism Pacemaker Vertebral artery stenosis (Acute) Symptomatic bradycardia (Acute) Medical History History of DVT (deep vein thrombosis) Mild aortic stenosis Acute subclavian vein thrombosis Syncope Recurrent right inguinal hernia [place] (hard of hearing) History of bradycardia per "always naturally has a very low pulse rate" Hx MRSA infection ~2008, hospitalized 7 days [place] the country in [facility], leg wound>treated Hx of urinary frequency History of diverticulitis Chronic kidney disease stage 3, possibly 4 per ; f/u PCP Cervical vertebral fusion ~2006 or 2007, per "very top of neck area, also removed 8 bone fragments from his neck">ROM is limited Anemia stated "she never knew about this, doesn't think this is correct" Blood pressure elevated without history of HTN per , recently blood pressure "has been good, never medicated for this" Erectile dysfunction Personal history of pneumonia (recurrent) ~2013, thinks he only had it once, not hosp; no residual symptoms Surgical History Hx of colonoscopy Hx of oral surgery oral implants placed Hx of bilateral cataract extraction H/O: vasectomy H/O inguinal hernia repair x2, right side Family History Mother Glaucoma Denies family history of Ovarian cancer Prostate cancer Myocardial infarction Breast cancer Colorectal cancer Social History Smoking Status: Never smoker Second Hand Exposure: No; Do You Dip or Chew Tobacco: No; Hx Alcohol Use: No Hx Substance Use: No Preferred Language: Norwegian Communication Ability: Effective 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: No Beliefs That Will Affect Care: None marital status: Current Living Situation: Spouse Current Living Situation Comment: current occupational status: retired Feels Safe at Home: Yes Childhood Exposure to Second-Hand Smoke: No Physical Activity Frequency: Daily Assistive Devices: Hearing Aid - Left and Hearing Aid - Right Allergies Allergies Allergy/AdvReac Type Severity Reaction Status Date / Time Horse/Equine Containing Allergy Intermediate FROM HORSE Verified 04/20/25 12:53 Products SERUM TETANUS pollen extracts Allergy Intermediate HAYFEVER Verified 04/20/25 12:53 SYMPTOMS tetanus toxoid, adsorbed Allergy Intermediate BURNING Verified 04/20/25 12:53 SENSATION ALL OVER BODY - "ALMOST WENT UNCONSCIOUS" Sulfa (Sulfonamide AdvReac Severe "ENDED UP Verified 04/20/25 12:53 Antibiotics) WITH HEPATITIS AFTER TAKING MED" Home Meds Home Medications Medication Instructions Recorded Confirmed levothyroxine 100 mcg capsule 100 mcg PO DAILYBB 01/27/24 04/20/25 Previous Rx's Medication Instructions Recorded aspirin 81 mg tablet,delayed 81 mg PO QAM #30 tabs 04/21/24 release Results & Data (ED) Vital Signs Vital Signs - 24 hr 04/20/25 09:19 04/20/25 09:33 04/20/25 09:38 Temperature 36.6 C Temperature Source Oral Pulse Rate 73 60 Pulse Rate [Apical] Pulse Rhythm [Apical] Pulse Strength [Apical] Respiratory Rate 16 Respiratory Effort / Characteristics Non-Labored Spontaneous Respiratory Depth Normal Respiratory Pattern Regular Blood Pressure 152/90 H Blood Pressure [Left Arm] Blood Pressure Mean 110 Blood Pressure Mean [Left Arm] Blood Pressure Position [Left Arm] Pulse Oximetry 98 99 Oxygen Delivery Method Room Air Room Air Sepsis Recent Fever Within 48 Hours No Sepsis New/Unexplained Change in Mental Status No Sepsis Action Taken by Nursing No Action Required 04/20/25 09:38 04/20/25 11:19 04/20/25 14:09 Temperature Temperature Source Pulse Rate Pulse Rate [Apical] 60 60 75 Pulse Rhythm [Apical] Regular Pulse Strength [Apical] Normal Respiratory Rate 18 17 19 Respiratory Effort / Characteristics Non-Labored Spontaneous Non-Labored Spontaneous Respiratory Depth Normal Normal Respiratory Pattern Regular Regular Blood Pressure Blood Pressure [Left Arm] 158/88 H 173/60 H 147/82 H Blood Pressure Mean Blood Pressure Mean [Left Arm] 111 97 103 Blood Pressure Position [Left Arm] Semi-fowlers Pulse Oximetry 99 94 97 Oxygen Delivery Method Room Air Room Air Room Air Sepsis Recent Fever Within 48 Hours Sepsis New/Unexplained Change in Mental Status Sepsis Action Taken by Snf Medications Current Medication List: was personally reviewed by me Laboratory Data Attestation: I reviewed the patient's lab results. 04/20/25 09:40 04/20/25 09:40 Lab Results 04/20/25 04/20/25 Range/Units 09:40 10:32 WBC 7.15 (4.8-10.8) K/ul RBC 4.59 L (4.70-6.10) M/uL Hgb 13.4 L (14.0-18.0) g/dl Hct 38.9 L (42.0-52.0) % MCV 84.7 (80.0-100.0) fL MCH 29.2 (25.0-34.0) pg MCHC 34.4 (32.0-36.0) g/dL RDW Std Deviation 41.9 (36.4-46.3) fL RDW Coeff of Sadia 13.4 (11.5-14.5) % Plt Count 177 (130-400) K/uL MPV 10.1 (9.4-12.4) fL Immature Gran % (Auto) 0.3 % Neut % (Auto) 49.5 % Lymph % (Auto) 34.8 % [place] % (Auto) 11.9 % Eos % (Auto) 3.1 % Baso % (Auto) 0.4 % Neut # (Auto) 3.54 (1.40-6.50) K/uL Lymph # (Auto) 2.49 (1.20-3.40) K/uL [place] # (Auto) 0.85 H (0.11-0.59) K/uL Eos # (Auto) 0.22 (0.00-0.50) K/uL Baso # (Auto) 0.03 (0.00-0.20) K/uL Immature Gran # (Auto) 0.02 (0.01-0.20) K/uL PT 10.6 (9.0-12.0) Seconds INR 1.0 (0.9-1.1) APTT 26 (21-31) Seconds PTT Ratio 1.0 Sodium 141 (136-145) mmol/L Potassium 4.0 (3.5-5.1) mmol/L Chloride 111 H (98-107) mmol/L Carbon Dioxide 24 (21-32) mmol/L Anion Gap 6 (3-11) BUN 23 (6-23) mg/dl Creatinine 1.35 (0.6-1.4) mg/dl Est Cr Clr Drug Dosing Not Reportable eGFR 50.50 BUN/Creatinine Ratio 17.0 (10-20) Glucose 116 H (70-99(Fasting)) mg/dl Calcium 9.1 (8.6-10.3) mg/dl Magnesium 2.0 (1.7-2.4) mg/dl Total Bilirubin 0.6 (0.2-1.0) mg/dl AST 23 (13-39) U/L ALT 18 (7-52) U/L Alkaline Phosphatase 65 (34-104) U/L Troponin I High Sens 9.8 (0-20) pg/ml Total Protein 6.7 (6.0-8.3) gm/dl Albumin 3.9 (3.4-5.0) gm/dl Globulin 2.8 (2.5-4.0) gm/dl Albumin/Globulin Ratio 1.4 (0.9-2) Urine Color Yellow Urine Appearance Clear (Clear) Urine pH 6.5 (4.5-7.5) Ur Specific [place] 1.018 (1.000-1.030) Urine Protein Negative (Negative) Urine Glucose (UA) Negative (Negative) Urine Ketones Negative (Negative) Urine Blood Negative (Negative) Urine Nitrite Negative (Negative) Urine Bilirubin Negative (Negative) Urine Urobilinogen Negative (Negative) Ur Leukocyte Esterase Negative (Negative) Urine Comment Administered Medications Gadobutrol (Gadobutrol 65ml Vial) 7.5 ml IV ONCE ONE Stop: 04/20/25 14:37 Last Admin: 04/20/25 14:36 Dose: 7.5 ml Documented By: SEE Discontinued Medications Clopidogrel Bisulfate (Clopidogrel Bisulfate 300 Mg Tab) 300 mg PO NOW STA Stop: 04/20/25 12:06 Last Admin: 04/20/25 12:38 Dose: 300 mg Documented By: MOE Dexamethasone Sodium Phosphate (DexamethasonePf 10 Mg/Ml Vial) 4 mg IV NOW ONE Stop: 04/20/25 09:44 Last Admin: 04/20/25 10:43 Dose: 4 mg Documented By: sandra Diphenhydramine HCl (Diphenhydramine 50 Mg/Ml Vial) 12.5 mg IV NOW STA Stop: 04/20/25 09:44 Last Admin: 04/20/25 10:43 Dose: 12.5 mg Documented By: sandra Sodium Chloride (Nss) 500 mls @ 999 mls/hr IV .Q31M ONE Stop: 04/20/25 10:13 Last Infusion: 04/20/25 11:35 Dose: Infused Documented By: Admin: 04/20/25 10:43 Dose: 999 mls/hr Documented By: sandra Ioversol (Optiray 320 125ml) 119 ml IV ONCE ONE Stop: 04/20/25 10:55 Last Admin: 04/20/25 10:54 Dose: 119 ml Documented By: BIANCA Ondansetron HCl (Ondansetron Inj 2 Mg/Ml 2 Ml Vial) 4 mg IV NOW STA Stop: 04/20/25 09:44 Last Admin: 04/20/25 10:38 Dose: 4 mg Documented By: sandra Imaging Data Radiologist's Impression: Head CT 04/20/25 09:43 CT head/brain wo con CLINICAL HISTORY: neuro deficit, acute stroke suspected. TECHNIQUE: Multiple axial CT images of the head were obtained without contrast. A dose lowering technique was utilized adhering to the principles of ALARA. CT DOSE: 1194.1 mGy.cm COMPARISON: 04/19/2024 FINDINGS: No intracranial hemorrhage seen. No mass effect, midline shift, or hydrocephalus. Stable mild chronic small vessel ischemic changes. No skull fracture seen. Visualized paranasal sinuses and mastoid air cells are clear. IMPRESSION: No acute findings. ACT 112: Negative or not required by law. The above report was generated using voice recognition software. It may contain grammatical, syntax or spelling errors. Electronically signed by: Shivam Shrestha M.D. 04/20/2025 11:16 AM Head CTA 04/20/25 09:43 CTA ANGIOGRAPHY OF THE HEAD CLINICAL HISTORY: neuro deficit, acute stroke suspected COMPARISON STUDY: CTA of the head April 19, 2024. TECHNIQUE: Helical axial images of the head were obtained following uneventful intravenous administration of 119 cc of Optiray. Sagittal and coronal reconstructions were viewed as well as maximal intensity projections on an independent 3-D workstation. Automated exposure control was utilized for the study. A dose lowering technique was utilized adhering to the principles of ALARA. FINDINGS: Please note that the head CT will be reported separately. No acute intracranial hemorrhage, midline shift or mass effect is present. Ventricular system is stable. The basal cisterns are patent. There are no extra-axial collections. The bilateral M1, M2, A1 and A2 segments are patent. There is no intracranial aneurysm. There is minimal plaque within the cavernous carotids without stenosis. The left vertebral artery is dominant. Intracranial portion of the left vertebral artery is patent. The CTA of the neck will be reported separately. Severe stenosis versus short segment occlusion with reconstitution of the intracranial portion of the right vertebral artery has progressed since CTA of April 19, 2024. Otherwise, posterior circulation is intact. IMPRESSION: 1. Severe stenosis versus short segment occlusion with reconstitution of the intracranial portion of the right vertebral artery which has progressed since CTA of April 19, 2024. Otherwise, intact posterior circulation. 2. No additional significant stenoses. No intracranial aneurysm. ACT 112: Negative or not required by law. Electronically signed by: Jimmy Mcdaniel M.D. 04/20/2025 11:18 AM Neck CTA 04/20/25 09:43 CT angio neck with con CLINICAL HISTORY: 89 years-old Male with neuro deficit, acute stroke suspected. Acute stroke like symptoms with dizziness COMPARISON STUDY: CTA head of same day, CTA neck April 19, 2024 TECHNIQUE: Following the IV administration of 119 mL of Optiray, CT angiogram of the neck was performed from the aortic arch to the skull base. Images are reviewed in the axial, sagittal, and coronal planes. 3-D MIPS images are created and assessed. IV contrast was administered without complication. All measurements were calculated based on NASCET criteria. A dose lowering technique was utilized adhering to the principles of ALARA. FINDINGS: Left subclavian pacer. Three-vessel morphology to the thoracic aortic arch. Patency of the innominate and image subclavian arteries. The common carotid arteries are widely patent. There is mild atherosclerosis of the carotid bulbs and internal carotid arteries without significant stenosis. Dominant left vertebral artery. There is high-grade stenosis at the origin of the right vertebral artery secondary to atherosclerosis. Severe stenosis versus short segment occlusion with reconstitution of the intracranial portion of the right vertebral artery has progressed since CTA of April 19, 2024. Cervical spinal fusion hardware. The lung apices are clear. Calcified left thyroid nodule. Degenerative changes of the spine. IMPRESSION: 1.Severe stenosis versus short segment occlusion with reconstitution of the intracranial portion of the right vertebral artery which has progressed since CTA of April 19, 2024. 2. Additional high-grade stenosis of the origin of the right vertebral artery. 3. Patent carotid arteries. ACT 112: Negative or not required by law. The above report was generated using voice recognition software. It may contain grammatical, syntax or spelling errors. Electronically signed by: Quan Torres M.D. 04/20/2025 11:39 AM Discharge Plan Visit Data Chief Complaint: Chest Pain Stated Complaint: HEART SYMPTOMS ED Provider: Brett Ferris Discharge Problem: Dizziness, Stroke-like symptoms, Abnormal CT of the head, Nystagmus Patient Disposition: Admitted As Inpatient Condition: Fair Forms Stand Alone Forms: [facility] [employer] Prescriptions Prescriptions: No Action levothyroxine 100 mcg Capsule 100 mcg PO DAILYBB aspirin 81 mg Tablet,Delayed Release (Dr/Ec) 81 mg PO QAM Qty: 30 0RF Referrals Referrals: Sweta Waters DO [Primary Care Provider] -
[2025-04-20 10:07] LABS: Hematocrit (blood only) 38.9 % (42.0-52.0); Hemoglobin 13.4 g/dl (14.0-18.0); Immature Granulocytes # (auto) 0.02 K/uL (0.01-0.20); Immature Granulocytes % (auto) 0.3 %; Mean Corpuscular Hemoglobin 29.2 pg (25.0-34.0); Mean Corpuscular Volume 84.7 fL (80.0-100.0); Platelet Count 177 K/uL (130-400); RDW Standard Deviation 41.9 fL (36.4-46.3); Red Blood Count 4.59 M/uL (4.70-6.10); White Blood Count 7.15 K/ul (4.8-10.8)
[2025-04-20 10:21] LABS: Alanine Aminotransferase 18 U/L (7-52); Albumin Globulin Ratio 1.4 (0.9-2); Alkaline Phosphatase 65 U/L (34-104); Anion Gap 6 (3-11); Bilirubin,Total 0.6 mg/dl (0.2-1.0); Blood Urea Nitrogen 23 mg/dl (6-23); Calcium 9.1 mg/dl (8.6-10.3); Carbon Dioxide 24 mmol/L (21-32); Chloride 111 mmol/L (98-107); Globulin 2.8 gm/dl (2.5-4.0); Glucose 116 mg/dl (70-99(Fasting)); Magnesium 2.0 mg/dl (1.7-2.4); Potassium 4.0 mmol/L (3.5-5.1); Sodium 141 mmol/L (136-145); Total Protein 6.7 gm/dl (6.0-8.3)
[2025-04-20 10:35] LABS: INR 1.0 (0.9-1.1); Partial Thromboplastin Time 26 Seconds (21-31); Prothrombin Time 10.6 Seconds (9.0-12.0)
[2025-04-20] MEDS: ONDANSETRON INJ 2 MG/ML 2 ML VIAL IV STA (10:38)
[2025-04-20] MEDS: dexAMETHasone**PF** 10 MG/ML VIAL IV ONE (10:43)
[2025-04-20] MEDS: SODIUM CHLORIDE 0.9% 500 ML IV ONE (10:43)
[2025-04-20] MEDS: diphenhydrAMINE 50 MG/ML VIAL IV STA (10:43)
[2025-04-20] MEDS: OPTIRAY 320 125ml IV ONE (10:54)
--- NOTE | 2025-04-20 11:06 | Electrocardiogram Report ---
Test Reason : Blood Pressure : */* mmHG Vent. Rate : 61 BPM Atrial Rate : 61 BPM P-R Int : 266 ms QRS Dur : 74 ms QT Int : 420 ms P-R-T Axes : -8 -14 45 degrees QTcB Int : 422 ms Atrial-paced rhythm with prolonged AV conduction Low voltage QRS Cannot rule out Anterior infarct Abnormal ECG When compared with ECG of 28-May-2024 06:29, Nonspecific T wave abnormality, improved in Inferior leads Confirmed by Papito Geiger ([id number]) on 04/20/2025 11:06:36 AM Referred By: REFERRED SELF Confirmed By: Papito Geiger
--- NOTE | 2025-04-20 11:17 | CT Scan Report ---
CT head/brain wo con CLINICAL HISTORY: neuro deficit, acute stroke suspected. TECHNIQUE: Multiple axial CT images of the head were obtained without contrast. A dose lowering tech nique was utilized adhering to the principles of ALARA. CT DOSE: 1194.1 mGy.cm COMPARISON: 04/19/2024 FINDINGS: No intracranial hemorrhage seen. No mass effect, midline shift, or hydrocephalus. Stable mi ld chronic small vessel ischemic changes. No skull fracture seen. Visualized paranasal sinuses and ma stoid air cells are clear. IMPRESSION: No acute findings. ACT 112: Negative or not required by law. The above report was generated using voice recognition software. It may contain grammatical, syntax o r spelling errors. Electronically signed by: Shivam Shrestha M.D. 04/20/2025 11:16 AM
--- NOTE | 2025-04-20 11:19 | CT Scan Report ---
CTA ANGIOGRAPHY OF THE HEAD CLINICAL HISTORY: neuro deficit, acute stroke suspected COMPARISON STUDY: CTA of the head April 19, 2024. TECHNIQUE: Helical axial images of the head were obtained following uneventful intravenous administr ation of 119 cc of Optiray. Sagittal and coronal reconstructions were viewed as well as maximal inten sity projections on an independent 3-D workstation. Automated exposure control was utilized for the study. A dose lowering technique was utilized adhering to the principles of ALARA. FINDINGS: Please note that the head CT will be reported separately. No acute intracranial hemorrhage, midline shift or mass effect is present. Ventricular system is stable. The basal cisterns are patent . There are no extra-axial collections. The bilateral M1, M2, A1 and A2 segments are patent. There is no intracranial aneurysm. There is minimal plaque within the cavernous carotids without stenosis. Th e left vertebral artery is dominant. Intracranial portion of the left vertebral artery is patent. The CTA of the neck will be reported separately. Severe stenosis versus short segment occlusion with rec onstitution of the intracranial portion of the right vertebral artery has progressed since CTA of Apr. Otherwise, posterior circulation is intact. IMPRESSION: 1. Severe stenosis versus short segment occlusion with reconstitution of the intracranial portion of the right vertebral artery which has progressed since CTA of April 19, 2024. Otherwise, intact operations consultant ior circulation. 2. No additional significant stenoses. No intracranial aneurysm. ACT 112: Negative or not required by law. Electronically signed by: Jimmy Mcdaniel M.D. 04/20/2025 11:18 AM
--- NOTE | 2025-04-20 11:40 | CT Scan Report ---
CT angio neck with con CLINICAL HISTORY: 89 years-old Male with neuro deficit, acute stroke suspected. Acute stroke like symptoms with dizziness COMPARISON STUDY: CTA head of same day, CTA neck April 19, 2024 TECHNIQUE: Following the IV administration of 119 mL of Optiray, CT angiogram of the neck was perform ed from the aortic arch to the skull base. Images are reviewed in the axial, sagittal, and coronal pl anes. 3-D MIPS images are created and assessed. IV contrast was administered without complication. Al l measurements were calculated based on NASCET criteria. A dose lowering technique was utilized adhe ring to the principles of ALARA. FINDINGS: Left subclavian pacer. Three-vessel morphology to the thoracic aortic arch. Patency of the innominate and image subclavian arteries. The common carotid arteries are widely patent. There is mild atherosc lerosis of the carotid bulbs and internal carotid arteries without significant stenosis. Dominant lef t vertebral artery. There is high-grade stenosis at the origin of the right vertebral artery secondar y to atherosclerosis. Severe stenosis versus short segment occlusion with reconstitution of the intra cranial portion of the right vertebral artery has progressed since CTA of April 19, 2024. Cervical spinal fusion hardware. The lung apices are clear. Calcified left thyroid nodule. Degenerati ve changes of the spine. IMPRESSION: 1.Severe stenosis versus short segment occlusion with reconstitution of the intracranial portion of t he right vertebral artery which has progressed since CTA of April 19, 2024. 2. Additional high-grade stenosis of the origin of the right vertebral artery. 3. Patent carotid arteries. ACT 112: Negative or not required by law. The above report was generated using voice recognition software. It may contain grammatical, syntax o r spelling errors. Electronically signed by: Quan Torres M.D. 04/20/2025 11:39 AM
[2025-04-20 11:45] LABS: Appearance Urine Clear (Clear); Glucose Urine UA Negative (Negative)
--- NOTE | 2025-04-20 12:14 | History & Physical Report ---
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 Dizziness Vertebral artery stenosis Patient presented to ED with intermittent episodes of sensation of room spinning starting around 0700 Differentials include TIA/stroke vs vertigo Head CT with no acute findings Head CTA revealed severe stenosis vs short segment occlusion of right vertebral artery which has progressed since April 2024; no additional significant stenoses; no intracranial aneurysm Neck CTA revealed additional high grade stenosis of origin of right vertebral artery; patient carotid arteries Dr Ferris discussed case with tele stroke at [facility] who recommended stroke work up and DAPT Received 300mg plavix in the ED Plan: --Obtain echo (last echo Apr 2024 with mild LVH, LVEF 55-60%, mild calcification of aortic valve, mild MR) --Obtain MRI brain as long as pacemaker is compatible --Continue baby aspirin and plavix --Patient agreeable to trial of rosuvastatin 20mg HS --PT/OT/ST consults with request for Carlos maneuver --Neurology consult --Meclizine and antiemetics for dizziness/nausea Symptomatic bradycardia s/p pacemaker (04/20/2024) Follows with [facility] last seen February 2025 Pacemaker interrogation completed in the ED with normal function per Dr Ferris History of DVT Developed DVT after pacemaker implantation in May 2024 Completed 6 mo of Eliquis - discontinued in November 2024 Hypothyroidism Continue levothyroxine DVT Prophylaxis: SQ Heparin Code Status: FULL CODE - As per discussion at bedside with the patient. PCP: Sweta Waters Disposition: admit to [facility] tele Patient seen in collaboration with Dr Shah. Please see addendum. I spent a total of 70 minutes coordinating, documenting and providing care for this patient excluding time spent in the performance of separately billed services or time spent by another provider/QHP. 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 Patient reports he was in his usual state of health this morning. He completed his morning swim around 0700 and while getting dressed in his room, developed a sensation of room spinning for 2-3 min. He laid down in bed for 5 min and the sensation resolved. The sensation recurred 10 min later and he continued to have multiple intermittent episodes throughout the morning, prompting him to come to the ED for evaluation. The sensation seems to occur and resolve spontaneously. One episode was associated with nausea and vomiting here in the ED but not all episodes have been associated with nausea. He denies any headaches, blurry or double vision, speech difficulty, weakness, chest pain, SOB, abdominal pain, dysuria, constipation or diarrhea. Allergies Allergy/AdvReac Type Severity Reaction Status Date / Time Horse/Equine Containing Allergy Intermediate FROM HORSE Verified 04/20/25 12:53 Products SERUM TETANUS pollen extracts Allergy Intermediate HAYFEVER Verified 04/20/25 12:53 SYMPTOMS tetanus toxoid, adsorbed Allergy Intermediate BURNING Verified 04/20/25 12:53 SENSATION ALL OVER BODY - "ALMOST WENT UNCONSCIOUS" Sulfa (Sulfonamide AdvReac Severe "ENDED UP Verified 04/20/25 12:53 Antibiotics) WITH HEPATITIS AFTER TAKING MED" Home Medications Medication Instructions Recorded Confirmed Type levothyroxine 100 mcg capsule 100 mcg PO DAILYBB 01/27/24 04/20/25 History aspirin 81 mg tablet,delayed 81 mg PO QAM #30 tabs 04/21/24 04/20/25 Rx release Past Med/Surg History Problem List (Updated 04/20/25 @ 12:43 by JONATHAN Manrique) Dizziness Hypothyroidism Pacemaker Vertebral artery stenosis (Acute) Symptomatic bradycardia (Acute) Medical History (Updated 04/20/25 @ 12:43 by JONATHAN Manrique) History of DVT (deep vein thrombosis) Mild aortic stenosis Acute subclavian vein thrombosis Syncope Recurrent right inguinal hernia [place] (hard of hearing) History of bradycardia per "always naturally has a very low pulse rate" Hx MRSA infection ~2008, [place], leg wound>treated Hx of urinary frequency History of diverticulitis Chronic kidney disease stage 3, possibly 4 per ; f/u PCP Cervical vertebral fusion ~2006 or 2007, per "very top of neck area, also removed 8 bone fragments from his neck">ROM is limited Anemia stated "she never knew about this, doesn't think this is correct" Blood pressure elevated without history of HTN per , recently blood pressure "has been good, never medicated for this" Erectile dysfunction Personal history of pneumonia (recurrent) ~2013, thinks he only had it once, not hosp; no residual symptoms Surgical History Hx of colonoscopy Hx of oral surgery oral implants placed Hx of bilateral cataract extraction H/O: vasectomy H/O inguinal hernia repair x2, right side Family History Mother Glaucoma Denies family history of Ovarian cancer Prostate cancer Myocardial infarction Breast cancer Colorectal cancer Social History (Updated 04/20/25 @ 13:36 by JONATHAN Manrique) Smoking Status: Never smoker Second Hand Exposure: No; Do You Dip or Chew Tobacco: No; Hx Alcohol Use: No Hx Substance Use: No Preferred Language: Mauritanian Communication Ability: Effective Excel Vba Developer Required: No Beliefs That Will Affect Care: None marital status: Current Living Situation: Spouse Current Living Situation Comment: current occupational status: retired Feels Safe at Home: Yes Childhood Exposure to Second-Hand Smoke: No Physical Activity Frequency: Daily Assistive Devices: Hearing Aid - Left and Hearing Aid - Right Review of Systems Review of Systems: All systems reviewed & are unremarkable except as noted in HPI & below Physical Exam Physical Exam: General/Psych: WD/WN, sitting up in bed, NAD, conversing easily, hard of hearing Head: normocephalic, atraumatic Eyes: normal inspection, PERRL, conjunctivae pink, no nystagmus appreciated ENT: external ear and nose normal, oropharynx normal Neck: normal visual inspection, trachea midline Respiratory: normal respiratory effort, lungs clear to auscultation, no wheeze/rales/rhonchi, no accessory muscle use Cardiovascular: regular rate and rhythm, no murmur/rub/gallop, no JVD Extremities: no cyanosis or clubbing, normal peripheral pulses, no BLE edema Abdomen/GI: normal bowel sounds, soft, nontender Neurologic/MSK: A+Ox3, CN's II-XI intact bilaterally, motor strength 5/5, moves all extremities Skin: no rashes, normal color, warm and dry Results & Data Results & Data Vital Signs (Past 12 Hours) Vital Signs Temp Pulse Pulse Resp BP BP Pulse Ox 04/20/25 11:19 60 17 173/60 H 94 04/20/25 09:38 60 18 158/88 H 99 04/20/25 09:38 99 04/20/25 09:33 60 04/20/25 09:19 36.6 C 73 16 152/90 H 98 O2 Del Method 04/20/25 11:19 Room Air 04/20/25 09:38 Room Air 04/20/25 09:38 Room Air 04/20/25 09:33 04/20/25 09:19 Room Air Laboratory Results Short CBC 04/20/25 Range/Units 09:40 WBC 7.15 (4.8-10.8) K/ul Hgb 13.4 L (14.0-18.0) g/dl Hct 38.9 L (42.0-52.0) % Plt Count 177 (130-400) K/uL BMP 04/20/25 09:40 Sodium 141 Potassium 4.0 Chloride 111 H Carbon Dioxide 24 BUN 23 Creatinine 1.35 Glucose 116 H Calcium 9.1 Liver Function 04/20/25 Range/Units 09:40 Total Bilirubin 0.6 (0.2-1.0) mg/dl AST 23 (13-39) U/L ALT 18 (7-52) U/L Alkaline Phosphatase 65 (34-104) U/L Albumin 3.9 (3.4-5.0) gm/dl Urine 04/20/25 Range/Units 10:32 Urine Color Yellow Urine Appearance Clear (Clear) Urine pH 6.5 (4.5-7.5) Ur Specific [place] 1.018 (1.000-1.030) Urine Protein Negative (Negative) Urine Glucose (UA) Negative (Negative) I have independently reviewed and interpreted patient's admitting labs including CBC, CMP, PTT, PT/INR, mag and troponin, UA Diagnostic Findings Head CT 04/20/25 09:43 CT head/brain wo con CLINICAL HISTORY: neuro deficit, acute stroke suspected. TECHNIQUE: Multiple axial CT images of the head were obtained without contrast. A dose lowering technique was utilized adhering to the principles of ALARA. CT DOSE: 1194.1 mGy.cm COMPARISON: 04/19/2024 FINDINGS: No intracranial hemorrhage seen. No mass effect, midline shift, or hydrocephalus. Stable mild chronic small vessel ischemic changes. No skull f racture seen. Visualized paranasal sinuses and mastoid air cells are clear. IMPRESSION: No acute findings. ACT 112: Negative or not required by law. The above report was generated using voice recognition software. It may contain grammatical, syntax or spelling errors. Electronically signed by: Shivam Shrestha M.D. 04/20/2025 11:16 AM Head CTA 04/20/25 09:43 CTA ANGIOGRAPHY OF THE HEAD CLINICAL HISTORY: neuro deficit, acute stroke suspected COMPARISON STUDY: CTA of the head April 19, 2024. TECHNIQUE: Helical axial images of the head were obtained following uneventful intravenous administration of 119 cc of Optiray. Sagittal and coronal reconstructions were viewed as well as maximal intensity projections on an independent 3-D workstation. Automated exposure control was utilized for the study. A dose lowering technique was utilized adhering to the principles of ALARA. FINDINGS: Please note that the head CT will be reported separately. No acute intracranial hemorrhage, midline shift or mass effect is present. Ventricular system is stable. The basal cisterns are patent. There are no extra-axial collections. The bilateral M1, M2, A1 and A2 segments are patent. There is no intracranial aneurysm. There is minimal plaque within the cavernous carotids without stenosis. The left vertebral artery is dominant. Intracranial portion of the left vertebral artery is patent. The CTA of the neck will be reported separately. Severe stenosis versus short segment occlusion with reconstitution of the intracranial portion of the right vertebral artery has progressed since CTA of April 19, 2024. Otherwise, posterior circulation is intact. IMPRESSION: 1. Severe stenosis versus short segment occlusion with reconstitution of the intracranial portion of the right vertebral artery which has progressed since CTA of April 19, 2024. Otherwise, intact posterior circulation. 2. No additional significant stenoses. No intracranial aneurysm. ACT 112: Negative or not required by law. Electronically signed by: Jimmy Mcdaniel M.D. 04/20/2025 11:18 AM Neck CTA 04/20/25 09:43 CT angio neck with con CLINICAL HISTORY: 89 years-old Male with neuro deficit, acute stroke suspected. Acute stroke like symptoms with dizziness COMPARISON STUDY: CTA head of same day, CTA neck April 19, 2024 TECHNIQUE: Following the IV administration of 119 mL of Optiray, CT angiogram of the neck was performed from the aortic arch to the skull base. Images are reviewed in the axial, sagittal, and coronal planes. 3-D MIPS images are created and assessed. IV contrast was administered without complication. All measurements were calculated based on NASCET criteria. A dose lowering technique was utilized adhering to the principles of ALARA. FINDINGS: Left subclavian pacer. Three-vessel morphology to the thoracic aortic arch. Patency of the innominate and image subclavian arteries. The common carotid [place] amanda are widely patent. There is mild atherosclerosis of the carotid bulbs and internal carotid arteries without significant stenosis. Dominant left vertebral artery. There is high-grade stenosis at the origin of the right vertebral artery secondary to atherosclerosis. Severe stenosis versus short segment occlusion with reconstitution of the intracranial portion of the right vertebral artery has progressed since CTA of April 19, 2024. Cervical spinal fusion hardware. The lung apices are clear. Calcified left thyroid nodule. Degenerative changes of the spine. IMPRESSION: 1.Severe stenosis versus short segment occlusion with reconstitution of the intracranial portion of the right vertebral artery which has progressed since CTA of April 19, 2024. 2. Additional high-grade stenosis of the origin of the right vertebral artery. 3. Patent carotid arteries. ACT 112: Negative or not required by law. The above report was generated using voice recognition software. It may contain grammatical, syntax or spelling errors. Electronically signed by: Quan Torres M.D. 04/20/2025 11:39 AM ECG Additional Comments: I have independently reviewed and interpreted patient's admitting EKG which revealed: atrial paced rhythm at rate of 61 bpm Code Status & VTE Plan Code Status Full Code Supervising Physician Co-Signing Physician Notes I have seen and discussed the case with the collaborating advanced practitioner. I agree with the above H&P. I have reviewed and confirmed the patients medical history, the findings on physical examination, and the patients diagnosis and treatment plan with Isiah CASTILLO and agree with the information documented. In short, Mr. Fernandes is an 89 year old gentleman with history of sympomatic bradycardia s/p pacemaker and hypothyroidism presenting for new onset veritgo. The symptoms started after his swim--noting he is a very active gentleman. He states the room was spinning while he was standing for some time, temporarily resolved with rest, but intermittently returning. He has known right vertebral artery stenosis which seems to have progressed since 2023. He denies any other symptoms including visual changes (outside of vertigo), facial droop, extremity weakness, dysphagia, dysarthria, or other concerns. The vertigo is sporadic and not necessarily positional. He declines any other viral illness or sinus issues in recent weeks. Patient states he only tried atorvastatin--but would be open to trialing another formulation, with the understanding that he will discontinue if similar symptoms recur. EXAM is notable for a man who is chronically hard of hearing at baseline, but otherwise no distress. Cranial nerves intact. No nystagmus was elicited on exam. Strength 5/5 in BUE/BLE #Dizziness #Right vertebral artery stenosis #Stroke like symptoms, c/f TIA v vestibular stroke Pacemaker report stable, MRI compatible MRI ordered ECHO ordered Monitor on tele start plavix continue asa start rosuvastatin 20mg daily PT/OT ordered rest of plan as above I spent a total of 35 minutes coordinating, documenting, and providing care for this patient excluding time spent in the performance of separately billed services. All of the aforementioned completed outside of collaborating with the assigned advanced practitioner for a full treatment plan. I have reviewed the advanced practitioner's documentation, and I agree with, and take responsibility for the plan of care (2) Vertebral artery stenosis Laterality: right Qualified Code(s): I65.01 - Occlusion and stenosis of right vertebral artery
[2025-04-20] MEDS: CLOPIDOGREL BISULFATE 300 MG TAB PO STA (12:38)
[2025-04-20] MEDS: GADOBUTROL 65ML VIAL IV ONE (14:36)
--- NOTE | 2025-04-20 15:12 | Magnetic Resonance Report ---
MR brain wo/w con HISTORY: 89 years-old Male stroke workup acute stroke like symptoms COMPARISON: CTA head 04/20/2025 TECHNIQUE: Multiplanar multisequence MRI of the brain was obtained with and without IV contrast. FINDINGS: No restricted diffusion to suggest an acute or subacute infarct. Midline structures appear unremarkab le. Degenerative changes of the cervical spine. No acute intracranial hemorrhage, midline shift, abno rmal extra-axial collection, hydrocephalus or intra-axial mass. Involutional changes with mild scatte red T2/FLAIR hyperintense foci throughout the white matter suggestive of chronic microvascular ischem ic disease. No abnormal enhancement. Cerebral venous sinuses and major arterial flow voids appear patent. Prior bilateral lens repair. Min imal mucosal thickening of the paranasal sinuses. Trace mastoid effusions. IMPRESSION: 1. No acute intracranial abnormality. No acute or subacute infarct. 2. Involutional changes with chronic microvascular ischemic disease. 3. No abnormal enhancement. ACT 112: Negative or not required by law. The above report was generated using voice recognition software. It may contain grammatical, syntax o r spelling errors. Electronically signed by: Quan Torres M.D. 04/20/2025 3:11 PM
[2025-04-20] MEDS ORDERED: ACETAMINOPHEN 325 MG TAB PO PRN (16:08)
[2025-04-20] MEDS ORDERED: PHARMACIST DISCHARGE MED REC CONSULT PRN (16:08)
[2025-04-20] MEDS ORDERED: ONDANSETRON INJ 2 MG/ML 2 ML VIAL IV PRN (16:08)
[2025-04-20] MEDS: ASPIRIN 81 MG ECTAB PO SCH (18:08)
[2025-04-20] MEDS: ROSUVASTATIN CALCIUM 20 MG TAB PO SCH (19:59)
[2025-04-20] MEDS: MECLIZINE HCL 25 MG TAB PO PRN (19:59)
[2025-04-20] MEDS: NEOMYCIN/POLYMYX/BACITR OINT 15 GM TUBE EXT SCH (20:19)
[2025-04-20] MEDS: HEPARIN SOD 5,000 UNIT/0.5 ML VIAL SQ SCH (20:20)
--- NOTE | 2025-04-20 22:25 | Neurology Consultation ---
Date of Consultation April 20, 2025 Assessment & Plan (1) Vertigo: Suspect BPPV recurrent episodes with a negative MRI of the brain Plan Continue aspirin and statin for stroke prevention. Meclizine 25 mg 3 times daily. Referred to the dizziness and balance center. Maintain normotension. Please call neurology for further questions or concerns Telehealth Consultation Telehealth Information Telehealth Information: I performed this visit using a real-time telehealth connection between my location and the patients location ([facility]). After connecting through interactive tele-video, patient was identified by name and date of and/or wristband check.Patient (or authorized healthcare contracts representative) was informed that this was a telemedicine visit and it was being conducted confidentially over secure lines. My office door was closed and no one else was present in the room with me.Patient (or authorized healthcare contracts representative) provided consent to proceed with the visit, expressed an understanding of privacy and security of the telemedicine visit, and gave permission to have a hospital contracts representative in the room in order to assist with the visit and to conduct portions of the visit, as needed. I informed the patient (or authorized healthcare contracts representative) that I reviewed their record and presented the opportunity for them to ask any questions regarding the visit today. The patient agreed to participate. History of Present Illness Reason for Consultation: vertigo Requesting Physician: Susan Shah MD Attending Physician: Susan Shah MD History of Present Illness 89-year-old male patient with PMH of sensorineural hearing loss history of episodes of dizziness after which a pacemaker was inserted, known right vertebral stenosis , dominant left vertebral artery, who presents to the hospital for evaluation of room spinning sensation. The patient reports doing his physical therapy with swimming earlier today after which he had a shower and by the time he was getting dressed he felt a room spinning sensation that lasted for about few minutes and improved, later on he went to have breakfast and his room spinning sensation came back again he does concerned and came to the emergency room. He denies any associated numbness or weakness, denies any slurred speech, his balance was off due to the dizziness. Previous similar history of similar events. In the ED his CTA showed chronic right vertebral artery stenosis with possible short segment occlusion. Patent left vertebral artery CT scan of the head no acute findings. MRI of the brain shows chronic white matter changes no evidence of acute ischemia. EKG showed atrial paced rhythm echocardiogram showed left ventricular EF of 55- 60%, borderline to mild aortic valve stenosis Upon my evaluation the patient was resting comfortably without any vertiginous symptoms he denied any focal neurological deficits Allergies Allergy/AdvReac Type Severity Reaction Status Date / Time Horse/Equine Containing Allergy Intermediate FROM HORSE Verified 04/20/25 12:53 Products SERUM TETANUS pollen extracts Allergy Intermediate HAYFEVER Verified 04/20/25 12:53 SYMPTOMS tetanus toxoid, adsorbed Allergy Intermediate BURNING Verified 04/20/25 12:53 SENSATION ALL OVER BODY - "ALMOST WENT UNCONSCIOUS" Sulfa (Sulfonamide AdvReac Severe "ENDED UP Verified 04/20/25 12:53 Antibiotics) WITH HEPATITIS AFTER TAKING MED" Home Medications Medication Instructions Recorded Confirmed Type levothyroxine 100 mcg capsule 100 mcg PO DAILYBB 01/27/24 04/20/25 History aspirin 81 mg tablet,delayed 81 mg PO QAM #30 tabs 04/21/24 04/20/25 Rx release Patient History Medical History History of DVT (deep vein thrombosis) Mild aortic stenosis Acute subclavian vein thrombosis Syncope Recurrent right inguinal hernia NEZ PERCE (hard of hearing) History of bradycardia per "always naturally has a very low pulse rate" Hx MRSA infection ~2008, hospitalized 7 days while [place] the [place] in [facility], leg wound>treated Hx of urinary frequency History of diverticulitis Chronic kidney disease stage 3, possibly 4 per ; f/u PCP Cervical vertebral fusion ~2006 or 2007, per "very top of neck area, also removed 8 bone fragments from his neck">ROM is limited Anemia stated "she never knew about this, doesn't think this is correct" Blood pressure elevated without history of HTN per , recently blood pressure "has been good, never medicated for this" Erectile dysfunction Personal history of pneumonia (recurrent) ~2013, thinks he only had it once, not hosp; no residual symptoms Surgical History Hx of colonoscopy Hx of oral surgery oral implants placed Hx of bilateral cataract extraction H/O: vasectomy H/O inguinal hernia repair x2, right side Family History Mother Glaucoma Denies family history of Ovarian cancer Prostate cancer Myocardial infarction Breast cancer Colorectal cancer Social History Smoking Status: Never smoker Second Hand Exposure: No; Do You Dip or Chew Tobacco: No; Hx Alcohol Use: No Hx Substance Use: No Preferred Language: Nepali Communication Ability: Effective Terminal Manager Required: No Beliefs That Will Affect Care: None marital status: Current Living Situation: Spouse Current Living Situation Comment: current occupational status: retired Feels Safe at Home: Yes Childhood Exposure to Second-Hand Smoke: No Physical Activity Frequency: Daily Assistive Devices: Hearing Aid - Bilateral and Hearing Aid - Left Assistive Devices Comment: Dental implants Review of Systems Constitutional: Patient denies weight loss, fever, chills, and night sweats Eyes: Patient denies change in vision, tearing, pain, and redness ENT: Patient denies pain, bleeding, rhinorrhea, and dysphagia Cardiovascular: Patient denies chest pain, palpitation, dyspnea at rest, and dyspnea with exertion Respiratory: Patient denies shortness of breath, cough, wheezing, and productive cough GI: Patient denies reflux, pain, constipation, and diarrhea Skin: Patient denies rash, dryness, and itching Allergies/Immune System: Patient denies rhinorrhea, seasonal allergies, reaction to current MEDS, and joint swelling Endocrine: Patient denies weight loss, weight gain, temperature intolerance, and excessive thirst Neurological: All negative unless mentioned in the HPI Physical Exam General Constitutional: Appearance normally developed Head and face: normocephalic and atraumatic Eyes: no ptosis, no anisocoria, and no dysconjugate gaze Respiratory: normal effort Cardiovascular: regular rhythm and regular rate Abdomen: non distended Skin: no rashes, lesions, or ulcers noted Psychiatric: normal judgement and insight, normal mood, and normal affect NEUROLOGIC EXAMINATION: Mental Status:alert, oriented to time, place, person, normal recent memory, normal remote memory, normal attention span, normal concentration, normal language and normal fund of knowledge Cranial Nerves: CN 2 - no visual defect on confrontation and pupils round, equal, reactive to light CN 3, 4, 6 - extra-ocular movements intact and no nystagmus CN 5 - facial sensation intact CN 7 - no facial asymmetry CN 8 - intact hearing CN 9, 10 - palate symmetric, normal gag CN 11 - good shoulder shrug CN 12 - tongue midline MOTOR: Strength was at least antigravity throughout, Pronator drift was absent and There were no abnormal movements SENSATION: intact and symmetric to pinprick, light touch, vibration and joint position GAIT: stable, no ataxia and can perform tandem walking COORDINATION: no ataxia with finger to nose testing and heel to read testing REFLEXES: cannot assess over telemedicine NIH Stroke Scale: 1a. Level of Consciousness: alert = 0 1b. LOC Questions: (month, age): both correct = 0 1c. LOC Commands (open and close eyes, make fist and let go using non-paretic hand): obeys both correctly = 0 2. Best Gaze (eyes open and patient follows examiner's finger or face): normal = 0 3. Visual (visual threat or finger counting in each quadrant): no loss = 0 4. Facial Palsy (show teeth, raise eye brows and squeeze eyes shut, or grimace symmetry in a comatose patient): normal = 0 5a. Motor Arm (extend arm (palms down) to 90 degrees and score drift/movement (10 seconds) - Left: no drift = 0 5b. Motor Arm: (extend arm (palms down) to 90 degrees and score drift/movement (10 seconds) - Right: no drift = 0 6a. Motor Leg (elevate leg 30 degrees and score drift/ movement (5 seconds) - Left: no drift = 0 6b. Motor Leg (elevate leg 30 degrees and score drift/ movement (5 seconds) - Right: no drift = 0 7. Limb Ataxia (finger to nose, heel down read): absent = 0 8. Sensory (pin prick to face, arm, trunk and leg, compare side to side): normal = 0 9. Best Language: no aphasia = 0 10. Dysarthria (evaluate speech clarity by patient repeating listed words): normal articulation = 0 11. Extinction and Inattention: no neglect = 0 Total: 0 Results & Data Vital Signs (Past 12 Hours) Vital Signs Temp Pulse Pulse Pulse Resp BP BP 04/20/25 19:38 36.8 C 60 18 150/81 H 04/20/25 16:09 36.4 C L 61 16 158/80 H 04/20/25 15:24 36.6 C 64 16 155/73 H 04/20/25 15:15 60 04/20/25 14:09 75 19 147/82 H 04/20/25 11:19 60 17 173/60 H Pulse Ox O2 Del Method 04/20/25 19:38 94 Room Air 04/20/25 16:09 Room Air 04/20/25 15:24 96 Room Air 04/20/25 15:15 04/20/25 14:09 97 Room Air 04/20/25 11:19 94 Room Air Laboratory Results Laboratory Results - last 24 hr 04/20/25 04/20/25 09:40 10:32 WBC 7.15 RBC 4.59 L Hgb 13.4 L Hct 38.9 L MCV 84.7 MCH 29.2 MCHC 34.4 RDW Std Deviation 41.9 RDW Coeff of Sadia 13.4 Plt Count 177 MPV 10.1 Immature Gran % (Auto) 0.3 Neut % (Auto) 49.5 Lymph % (Auto) 34.8 Kay % (Auto) 11.9 Eos % (Auto) 3.1 Baso % (Auto) 0.4 Neut # (Auto) 3.54 Lymph # (Auto) 2.49 Kay # (Auto) 0.85 H Eos # (Auto) 0.22 Baso # (Auto) 0.03 Immature Gran # (Auto) 0.02 PT 10.6 INR 1.0 APTT 26 PTT Ratio 1.0 Sodium 141 Potassium 4.0 Chloride 111 H Carbon Dioxide 24 Anion Gap 6 BUN 23 Creatinine 1.35 Est Cr Clr Drug Dosing Not Reportable eGFR 50.50 BUN/Creatinine Ratio 17.0 Glucose 116 H Calcium 9.1 Magnesium 2.0 Total Bilirubin 0.6 AST 23 ALT 18 Alkaline Phosphatase 65 Troponin I High Sens 9.8 Total Protein 6.7 Albumin 3.9 Globulin 2.8 Albumin/Globulin Ratio 1.4 Urine Color Yellow Urine Appearance Clear Urine pH 6.5 Ur Specific Henderson 1.018 Urine Protein Negative Urine Glucose (UA) Negative Urine Ketones Negative Urine Blood Negative Urine Nitrite Negative Urine Bilirubin Negative Urine Urobilinogen Negative Ur Leukocyte Esterase Negative Urine Comment Diagnostic Findings CTA showed chronic right vertebral artery stenosis with possible short segment occlusion. Patent left vertebral artery CT scan of the head no acute findings. MRI of the brain shows chronic white matter changes no evidence of acute ischemia. EKG showed atrial paced rhythm echocardiogram showed left ventricular EF of 55- 60%, borderline to mild aortic valve stenosis Medications Administered Home Medications Medication Instructions Recorded Confirmed Last Taken levothyroxine 100 mcg capsule 100 mcg PO DAILYBB 01/27/24 04/20/25 04/20/25 aspirin 81 mg tablet,delayed 81 mg PO QAM #30 tabs 04/21/24 04/20/25 04/19/25 release Active Medications Generic Name Dose Route Start Last Admin Trade Name Willow PRN Reason Stop Dose Admin Aspirin 81 mg 04/20/25 16:08 04/20/25 18:08 Aspirin 81 Mg Ectab PO 05/20/25 16:07 81 mg QAM JENNIFER Administration Heparin Sodium (Porcine) 5,000 units 04/20/25 21:00 04/20/25 20:20 Heparin Sod 5,000 Unit/0.5 Ml Vial SQ 05/20/25 20:59 5,000 units Q12 JENNIFER Administration Meclizine HCl 25 mg 04/20/25 12:48 04/20/25 19:59 Meclizine Hcl 25 Mg Tab PO 05/20/25 12:47 25 mg Q6 PRN Administration Dizziness or Vertigo Neomycin/Polymyxin/Bacitracin 1 appln 04/20/25 21:00 04/20/25 20:19 Neomycin/Polymyx/Bacitr Oint 15 Gm Tube EXT 05/20/25 20:59 1 appln BID JENINFER Administration Rosuvastatin Calcium 20 mg 04/20/25 21:00 04/20/25 19:59 Rosuvastatin Calcium 20 Mg Tab PO 05/20/25 20:59 20 mg HS JENNIFER Administration
[2025-04-20 23:29] VITALS: RESP 16
[2025-04-21] MEDS: LEVOTHYROXINE SODIUM 100 MCG TABLET PO SCH (05:38)
[2025-04-21 08:15] LABS: Hematocrit (blood only) 38.6 % (42.0-52.0); Hemoglobin 13.4 g/dl (14.0-18.0); Immature Granulocytes # (auto) 0.04 K/uL (0.01-0.20); Immature Granulocytes % (auto) 0.4 %; Mean Corpuscular Hemoglobin 30.0 pg (25.0-34.0); Mean Corpuscular Volume 86.5 fL (80.0-100.0); Platelet Count 175 K/uL (130-400); RDW Standard Deviation 42.2 fL (36.4-46.3); Red Blood Count 4.46 M/uL (4.70-6.10); White Blood Count 10.31 K/ul (4.8-10.8)
[2025-04-21 08:30] LABS: Anion Gap 6.0 (3-11); Blood Urea Nitrogen 22.0 mg/dl (6-23); Calcium 8.8 mg/dl (8.6-10.3); Carbon Dioxide 25.0 mmol/L (21-32); Chloride 108.0 mmol/L (98-107); Cholesterol 168.0 mg/dl (0-200); Creatinine Clr Calc Pharmacy 33.8 ml/min; Glucose 101.0 mg/dl (70-99(Fasting)); HDL Cholesterol 52.0 mg/dl; Potassium 4.2 mmol/L (3.5-5.1); Sodium 139.0 mmol/L (136-145); Triglycerides 67.0 mg/dl (0-150)
[2025-04-21] MEDS: CLOPIDOGREL BISULFATE 75 MG TAB PO SCH (09:01)
[2025-04-21 09:20] LABS: Hemoglobin A1C 5.9 % (4.5-5.6)
--- NOTE | 2025-04-21 11:26 | Discharge Summary ---
Discharge Summary Date of Service April 21, 2025 Principal Dx & Hospital Course #1 = Principal Diagnosis (1) Benign positional vertigo: (2) Hypertension: (3) Vertebral artery stenosis: (4) Pacemaker: (5) Hypothyroidism: (6) Chronic kidney disease: Plan Patient 89-year-old gentleman who presented to the emergency room with complaints of the room spinning. Initially worked up as a stroke alert. There is no evidence of acute stroke. Was seen by stroke stroke neurology there is no indication for tPA. Patient was admitted to the hospital for additional monitoring. There was no significant arrhythmias on telemetry. His vertiginous symptoms completely resolved with a couple doses of meclizine. On the day of discharge he is feeling significantly improved. He is up and ambulatory. Symptoms and clinical findings most consistent with benign positional vertigo. During his hospitalization was noted to be hypertensive. Reviewing previous blood pressures all seem to be mostly elevated. We started on a low-dose aml odipine for blood pressure control and continue to monitor it outpatient. He will be discharged home to follow-up with his PCP. Will use meclizine as needed. Could consider outpatient physical therapy for Carlos maneuvers if his symptoms would persist. 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 Patient reports he was in his usual state of health this morning. He completed his morning swim around 0700 and while getting dressed in his room, developed a sensation of room spinning for 2-3 min. He laid down in bed for 5 min and the sensation resolved. The sensation recurred 10 min later and he continued to have multiple intermittent episodes throughout the morning, prompting him to come to the ED for evaluation. The sensation seems to occur and resolve spontaneously. One episode was associated with nausea and vomiting here in the ED but not all episodes have been associated with nausea. He denies any headaches, blurry or double vision, speech difficulty, weakness, chest pain, SOB, abdominal pain, dysuria, constipation or diarrhea. Admission Exam Per Admitting Provider See H&P Discharge Exam Constitutional: Alert HEENT: Mucous membranes moist. Lungs: Clear to auscultation, decreased, no wheezes rales or rhonchi CV: S1-S2, regular Abdomen: Soft, nontender, nondistended Extremities: No significant edema Neuro: No focal deficits Psych: Cooperative, normal mood Updated Medication List Medication Instructions Recorded Confirmed Type levothyroxine 100 mcg capsule 100 mcg PO DAILYBB 01/27/24 04/20/25 History aspirin 81 mg tablet,delayed 81 mg PO QAM #30 tabs 04/21/24 04/20/25 Rx release amlodipine 2.5 mg tablet 2.5 mg PO DAILY #30 tabs 04/21/25 Rx atorvastatin 20 mg tablet (Lipitor) 20 mg PO DAILY #30 tabs 04/21/25 Rx meclizine 25 mg tablet 25 mg PO Q6 PRN dizziness or 04/21/25 Rx vertigo #30 tabs Hospital Stay Data Consultations 04/20/25 12:28 ED Decision to Admit Stat 04/20/25 16:08 Consult Neurology Routine Diagnostic Imagining Performed 04/20/25 09:43 CT angio head w con Stat CT angio neck with con Stat CT head/brain wo con Stat 04/20/25 12:48 MRI Brain [MR brain wo/w con] Urgent Reviewed imaging, laboratory and diagnostic studies. Pertinent findings as below. CBC stable Electrolytes stable Creatinine 1.46 Hemoglobin A1c 5.9% Triglycerides 67 Total cholesterol 168 LDL 103 HDL 52 MRI of the brain negative for any type of acute ischemic event Echocardiogram pending Pending Results Patient Have Any Pending Studies at Discharge: Yes Discharge Instructions Given to Patient (Per Discharging Provider) If you continue to have vertigo symptoms you may benefit from outpatient physical therapy for Carlos maneuvers, discussed with your PCP Total Time Total Time Spent Total Time Spent (In Minutes): 33
[2025-04-21 11:49] VITALS: BP 126/71; PULSE 59; TEMP 97.7; O2SAT 97
--- NOTE | 2025-04-22 16:07 | Coding Query ---
CHRONIC KIDNEY DISEASE To promote full compliance with coding requirements relating to patient care, physician participation is requested in all cases of cosmetics machine operator uncertainty. Please assist us with the question(s) below: Coding Question(s): The record reflects the following clinical findings: History of Stage 3 to Stage 4 .// DS, HP CKD Stage 3b . Please specify the known or suspected type by placing an "X" within the parenthesis (x). If other, please document type. Please document Staging if known: ( ) Stage I >90 Kidney damage with normal or elevated GFR. ( ) Stage II 60-89 Kidney damage with mildly decreased kidney function Stage III 30-59 Moderately decreased kidney function (x ) Stage IIIA 45-59 ( ) Stage IIIB 30-44 ( ) Stage III, unspecified ( ) Stage IV 15-29 Severely decreased kidney function ( ) Stage V <15 Renal failure (or dialysis) ( ) End Stage ( ) Unknown Thank you Hayden SNOWDEN
== END 2025-04-21 12:41 | disposition home or self-care (01) | DRG 149 ==
LOC: ED 09:18 → 2N 12:48 → SUATTDRO 12:48 → 2N 15:35